=== PATIENT | female | born 1940 | race Caucasian/White ===

== ENCOUNTER 2020-05-22 13:14 | Outpatient (CLI) | payer MEDICARE, SELFPAY ==
--- NOTE | ~2020-05-22 | US_ITS ---
EXAMINATION: US carotid duplex BI DATE: 05/22/2020 14:04 INDICATION: Bilateral carotid stenosis. TECHNIQUE: Grayscale, color Doppler, and pulsed Doppler images of the cervical carotid arteries were obtained. The degree of vessel stenosis is placed in one of the following categories: normal, <50%, 5 0-69%, >=70% but less than near-occlusion, near-occlusion, or total occlusion. Note that percent sten osis relative to normal distal artery lumen diameter is indirectly measured from velocity measurement s as described by Sang, et al. Radiology 2003; 229:340-346. COMPARISON: Ultrasound 05/08/2019 FINDINGS: RIGHT: The right common carotid artery (CCA) peak systolic velocity (PSV) is 66 cm/s. The right internal car otid artery (ICA) PSV is 114 cm/s. The right ICA end-diastolic velocity (EDV) is 24 cm/s. The right I CA/CCA PSV ratio is 0.6. The ICA lumen is obscured by shadowing plaque. There is antegrade flow in th e right vertebral artery. LEFT: The left CCA PSV is 119 cm/s. The left ICA PSV is 123 cm/s. The left ICA EDV is 27 cm/s. The left ICA /CCA PSV ratio is 1.0. The ICA lumen is obscured by shadowing plaque. There is antegrade flow in the left vertebral artery. IMPRESSION: 1. <50% stenosis in the right internal carotid artery. 2. <50% stenosis in the left internal carotid artery. Reviewed, dictated and finalized at location A.
== END 2020-05-22 13:15 | disposition home or self-care (01) ==
DX: I65.23 Occlusion and stenosis of bilateral carotid arteries (principal)
CPT/HCPCS: 93880

== ENCOUNTER → 2020-06-10 12:21 | Outpatient (CLI) | payer MEDICARE, SELFPAY ==
--- NOTE | ~2020-06-10 | DEXA_ITS ---
Bone Density Report Name: Lori Burns Age: 79 Sex: Female Ethnicity: White Date of : 1940 Indication: postmenopausal; screening for osteoporosis; height loss; Referring Provider: PHYSICIAN NOT ON STAFF Study: Bone densitometry was performed. Exam Date: June 10, 2020 Accession number: [id number] Bone Density: Region BMD T-score Z-score Classification AP Spine (L1, L2) 1.426 4.1 6.5 Normal Femoral Neck (Left) 0.902 0.5 2.7 Normal Total Hip (Left) 1.137 1.6 3.6 Normal Femoral Neck (Right) 0.991 1.3 3.5 Normal Total Hip (Right) 1.210 2.2 4.2 Normal Total Hip Mean 1.174 1.9 3.9 Normal World Health Organization criteria for BMD impression classify patients as: Normal (T-score at or above -1.0), Osteopenia (T-score between -1.0 and -2.5), or Osteoporosis (T-score at or below -2.5). 10-year Fracture Risk: FRAX not reported because: All T-scores for Spine Total, Hip Total, Femoral Neck at or above -1.0 Previous Exams: Region Exam Age BMD T-score BMD Change BMD Change Date g/cm2 vs Baseline vs Previous AP Spine(L1, L2) 06/10/2020 79 1.426 4.1 0.001 0.001 07/26/2016 75 1.426 4.1 Total Hip(Left) 06/10/2020 79 1.137 1.6 -0.016 -0.016 07/26/2016 75 1.153 1.7 Total Hip(Right) 06/10/2020 79 1.210 2.2 0.035* 0.035* 07/26/2016 75 1.176 1.9 *Denotes significance at 95% confidence level, LSC for AP Spine = 0.022 g/cm2, LSC for Total Hip = 0.027 g/cm2 Clinical Information Provided by Patient: Has used the following medications: Vitamin D, Calcium Patient maximum height was 63 Menopause Age: 46 Drinks caffeinated beverages Onset of menses at age 17 Number of children 2 Impression: The patient has normal bone mass. No significant bone loss was observed. Discussion: LOW RISK OF FRACTURE; BONE DENSITY IS WELL ABOVE THE MINIMUM DESIRABLE LEVEL AND ABOVE AVERAGE FOR AGE AND SEX AT ALL SKELETAL SITES TESTED. This person's bone density is above expected limits for age and sex. This is rarely clinically significant, but should be pursued if there are significant musculoskeletal complaints. The patient should follow a healthful lifestyle (good nutrition with adequate calcium and vitamin D, and appropriate weight-bearing exercise). Follow-Up: Consider repeating this study in 5 years or sooner if there is some new clinical indication. Reported by: LUIGI on
== END ==
DX: Z78.0 Asymptomatic menopausal state (principal)
CPT/HCPCS: 77080

== ENCOUNTER 2020-07-02 15:06 | Outpatient (CLI) | payer MEDICARE, SELFPAY ==
--- NOTE | ~2020-07-02 | MM_ITS ---
EXAMINATION: MM screening [facility] BI w nicole HISTORY: Screening mammogram TECHNIQUE: Craniocaudal and mediolateral oblique 3-D tomosynthesis images were obtained and synthetic 2-D images were generated. CAD analysis was submitted and interpreted. COMPARISON: 06/20/2019, 06/02/2018, 05/24/2017, 05/03/2017 BREAST PARENCHYMAL COMPOSITION: There are scattered areas of fibroglandular density. FINDINGS: Scattered benign-appearing calcifications are present. There is no evidence of suspicious m ass, calcification, or architectural distortion to suggest malignancy in either breast. There has bee n no suspicious interval change. IMPRESSION: 1. No mammographic evidence of malignancy. 2. Recommend routine screening mammography in one year. BI-RADS Category 2: Benign finding(s). Reviewed, dictated and finalized at location A.
== END 2020-07-02 15:07 | disposition home or self-care (01) ==
DX: Z12.31 Encounter for screening mammogram for malignant neoplasm of breast (principal)
CPT/HCPCS: 77063; 77067

== ENCOUNTER 2021-07-15 15:47 | Outpatient (CLI) | payer MEDICARE, SELFPAY ==
--- NOTE | ~2021-07-15 | MM_ITS ---
EXAMINATION: MM screening [facility] BI w nicole HISTORY: Screening TECHNIQUE: Craniocaudal and mediolateral oblique 3-D tomosynthesis images were obtained and synthetic 2-D images were generated. CAD analysis was submitted and interpreted. COMPARISON: Comparison to multiple prior studies sequentially, with oldest reviewed study dated 10/2016. BREAST PARENCHYMAL COMPOSITION: There are scattered areas of fibroglandular density. FINDINGS: There is no evidence of suspicious mass, calcification, or architectural distortion to sugg est malignancy in either breast. There has been no suspicious interval change. IMPRESSION: 1. No mammographic evidence of malignancy. 2. Recommend routine screening mammography in one year. BI-RADS Category 1: Negative Reviewed, dictated and finalized at location A.
== END 2021-07-15 15:48 | disposition home or self-care (01) ==
LOC: ANHIMG 15:49
PROVIDERS: PCP Internal Medicine; Visit Provider Internal Medicine
DX: Z12.31 Encounter for screening mammogram for malignant neoplasm of breast (principal)
CPT/HCPCS: 77063; 77067

== ENCOUNTER 2022-07-05 13:30 | Outpatient (CLI) | payer MEDICARE, SELFPAY ==
--- NOTE | ~2022-07-05 | US_ITS ---
EXAMINATION: US carotid duplex BI DATE: 07/05/2022 14:25 INDICATION: Bilateral carotid stenosis TECHNIQUE: Grayscale, color Doppler, and pulsed Doppler images of the cervical carotid arteries were obtained. The degree of vessel stenosis is placed in one of the following categories: normal, <50%, 5 0-69%, >=70% but less than near-occlusion, near-occlusion, or total occlusion. Note that percent sten osis relative to normal distal artery lumen diameter is indirectly measured from velocity measurement s as described by Sang, et al. Radiology 2003; 229:340-346. COMPARISON: 05/22/2020 FINDINGS: RIGHT: The right common carotid artery (CCA) peak systolic velocity (PSV) is 129 cm/s. The right internal ca rotid artery (ICA) PSV is 145 cm/s. The right ICA end-diastolic velocity (EDV) is 36 cm/s. The right ICA/CCA PSV ratio is 1.1. Grayscale and color Doppler images yield an estimate of 50-69% diameter red uction from plaque in the ICA. The external carotid artery (ECA) PSV is 236 cm/s. There is antegrade flow in the right vertebral artery. LEFT: The left CCA PSV is 172 cm/s. The left ICA PSV is 196 cm/s. The left ICA EDV is 45 cm/s. The left ICA /CCA PSV ratio is 1.1. Grayscale and color Doppler images yield an estimate of 50-69% diameter reduct ion from plaque in the ICA. The ECA PSV is 322 cm/s. There is antegrade flow in the left vertebral ar marleny. IMPRESSION: 1. 50-69% stenosis in the right internal carotid artery. 2. 50-69% stenosis in the left internal carotid artery. Reviewed, dictated and finalized at location A.
== END 2022-07-05 13:31 | disposition home or self-care (01) ==
PROVIDERS: PCP Internal Medicine; Visit Provider Internal Medicine
DX: I65.23 Occlusion and stenosis of bilateral carotid arteries (principal)
CPT/HCPCS: 93880

== ENCOUNTER 2022-09-01 10:05 | Outpatient (CLI) | payer MEDICARE, SELFPAY ==
--- NOTE | ~2022-09-01 | MM_ITS ---
EXAMINATION: MM screening [facility] BI w nicole HISTORY: Screening mammogram TECHNIQUE: Craniocaudal and mediolateral oblique 3-D tomosynthesis images were obtained and synthetic 2-D images were generated. CAD analysis was submitted and interpreted. COMPARISON: No prior mammogram is available for comparison at this institution. BREAST PARENCHYMAL COMPOSITION: There are scattered areas of fibroglandular density. FINDINGS: Numerous bilateral benign calcifications. There is no evidence of suspicious mass, calcific ation, or architectural distortion to suggest malignancy in either breast. There has been no suspicio us interval change. IMPRESSION: 1. No mammographic evidence of malignancy. 2. Recommend routine screening mammography in one year. BI-RADS Category 2: Benign finding(s). Reviewed, dictated and finalized at location A. PENDENT FREIGHT AGENT
== END 2022-09-01 10:06 | disposition home or self-care (01) ==
PROVIDERS: PCP Internal Medicine; Visit Provider Internal Medicine
DX: Z12.31 Encounter for screening mammogram for malignant neoplasm of breast (principal)
CPT/HCPCS: 77063; 77067

== ENCOUNTER 2023-07-20 12:25 | Outpatient (CLI) | payer MEDICARE, SELFPAY ==
--- NOTE | ~2023-07-20 | US_ITS ---
EXAMINATION: US carotid duplex BI DATE: 07/20/2023 13:36 INDICATION: Carotid atherosclerosis and stenosis TECHNIQUE: Grayscale, color Doppler, and pulsed Doppler images of the cervical carotid arteries were obtained. The degree of vessel stenosis is placed in one of the following categories: normal, <50%, 5 0-69%, >=70% but less than near-occlusion, near-occlusion, or total occlusion. Note that percent sten osis relative to normal distal artery lumen diameter is indirectly measured from velocity measurement s as described by Sang, et al. Radiology 2003; 229:340-346. COMPARISON: 07/05/2022 FINDINGS: RIGHT: The right common carotid artery (CCA) peak systolic velocity (PSV) is 84 cm/s. The right internal car otid artery (ICA) PSV is 115 cm/s. The right ICA end-diastolic velocity (EDV) is 20 cm/s. The right I CA/CCA PSV ratio is 1.4. Grayscale and color Doppler images yield an estimate of <50% diameter reduct ion from plaque in the ICA. The external carotid artery (ECA) PSV is 222 cm/s. There is antegrade zulay w in the right vertebral artery. LEFT: The left CCA PSV is 126 cm/s. The left ICA PSV is 186 cm/s. The left ICA EDV is 30 cm/s. The left ICA /CCA PSV ratio is 1.5. Grayscale and color Doppler images yield an estimate of 50-69% diameter reduct ion from plaque in the ICA. The ECA PSV is 324 cm/s. There is antegrade flow in the left vertebral ar marleny. IMPRESSION: 1. <50% stenosis in the right internal carotid artery. 2. 50-69% stenosis in the left internal carotid artery. Reviewed, dictated and finalized at location A.
== END 2023-07-20 12:26 | disposition home or self-care (01) ==
PROVIDERS: PCP Internal Medicine; Visit Provider Internal Medicine
DX: I65.23 Occlusion and stenosis of bilateral carotid arteries (principal)
CPT/HCPCS: 93880

== ENCOUNTER 2023-09-29 15:59 | Outpatient (CLI) | payer MEDICARE, SELFPAY ==
--- NOTE | ~2023-09-29 | MM_ITS ---
EXAMINATION: MM screening [facility] BI w nicole HISTORY: Screening mammogram TECHNIQUE: Craniocaudal and mediolateral oblique 3-D tomosynthesis images were obtained and synthetic 2-D images were generated. CAD analysis was submitted and interpreted. COMPARISON: 09/01/2022, 07/15/2021, 07/02/2020 bilateral screening mammogram examinations BREAST PARENCHYMAL COMPOSITION: The breasts are heterogeneously dense, which may obscure small masses . FINDINGS: Numerous scattered bilateral benign calcifications are again noted. There is no evidence of suspicious mass, calcification, or architectural distortion to suggest malignancy in either breast. There has been no suspicious interval change. IMPRESSION: 1. No mammographic evidence of malignancy. 2. Recommend routine screening mammography in one year. BI-RADS Category 2: Benign finding(s). Reviewed, dictated and finalized at location A. E MAKER
== END 2023-09-29 16:00 | disposition home or self-care (01) ==
LOC: ANHIMG 16:01
PROVIDERS: PCP Internal Medicine; Visit Provider Internal Medicine
DX: Z12.31 Encounter for screening mammogram for malignant neoplasm of breast (principal)
CPT/HCPCS: 77063; 77067

== ENCOUNTER 2024-11-22 23:17 | Emergency (ER) | payer MEDICARE, SELFPAY ==
--- NOTE | ~2024-11-22 | CT_ITS ---
CT of the Abdomen and Pelvis: Indication: Abdominal pain Technique: 2.5 mm axial scans were obtained through the abdomen and pelvis following intravenous adm inistration of 100 cc of Omnipaque 350. Dose reduction technique was used on this scan by utilizing a utomated exposure control and iterative reconstruction technique. The dose-length product (DLP) was 2 36.83 mGy-cm. Findings: Scans through the lung bases are unremarkable. The liver, spleen, pancreas, gallbladder, adrenals and kidneys are within normal limits. There are ex tensive atherosclerotic calcifications of the aorta and iliac vessels. No lymphadenopathy. Probable wall thickening of the gastric antrum and duodenum. Questionable additional mild wall thicke bushra of large and small bowel loops. No bowel obstruction. No abscess or free air. Images through the pelvis are degraded by streak artifact from right hip arthroplasty. Urinary bladde r unremarkable. No pelvic mass evident. No ascites evident. Impression: Findings suggestive of nonspecific infectious/inflammatory enterocolitis. Wall thickening of the gastric antrum and duodenum could reflect additional inflammatory process or p ossibly peptic ulcer disease. Correlate clinically. No abscess, free air, or bowel obstruction. Reviewed, dictated and finalized at location . 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 Wall thickening of the gastric antrum and duodenum could reflect additional inf lammatory process or possibly peptic ulcer disease. Correlate clinically. No abscess, free air, or bowel obstruction.
[2024-11-22 23:27] VITALS: BP 146/38; PULSE 57; RESP 14; TEMP 36.4; O2SAT 98
[2024-11-23 00:18] LABS: Basophils Absolute Auto 0.1 K/mm3 (0.0-0.1); Basophils Percent Auto 0.4 % (0.2-1.2); Eosinophils Absolute Auto 0.2 K/mm3 (0-0.3); Eosinophils Percent Auto 1.7 % (0-4.4); Hematocrit 31.5 % (37.0-47.0); Hemoglobin 10.8 g/dL (12.0-15.0); Immature Granulocyte Absolute 0.09 K/mm3 (0.00-0.031); Immature Granulocyte Percent A 0.6 % (0-0.5); Lymphocytes Absolute Auto 2.11 K/mm3 (0.9-3.2); Lymphocytes Percent Auto 15.1 % (18.3-44.2); Mean Corpuscular HGB Conc 34.3 g/dl (32-36); Mean Corpuscular Hemoglobin 33.5 pg (26-34); Mean Corpuscular Volume 97.8 fl (80-100); Mean Platelet Volume 10.9 fl (7.4-10.4); Monocytes Absolute Auto 0.8 K/mm3 (0.1-0.6); Monocytes Percent Auto 5.5 % (2.6-8.5); Neutrophils Absolute Auto 10.7 K/mm3 (1.3-6.7); Neutrophils Percent Auto 76.7 % (45.5-73.1); Platelet Count Result 243 k/mm3 (150-375); Red Blood Count 3.22 M/mm3 (4.2-5.4); Red Cell Distribution Width 13.2 % (11.5-14.5); White Blood Count 13.9 K/mm3 (4.5-10.0)
[2024-11-23 00:22] LABS: Alanine Aminotransferase 33 U/L (6-35); Albumin Level 3.9 g/dL (3.5-5.1); Alkaline Phosphatase 49 U/L (38-126); Anion Gap 16 mmol/L (4-12); Aspartate Amino Transferase 49 U/L (14-36); Bilirubin,Total 0.7 mg/dL (0.2-1.3); Blood Urea Nitrogen 32 mg/dL (7-17); Carbon Dioxide 17 mmol/L (22-30); Chloride 103 mmol/L (98-107); Estimated CRCL calculation 20 ml/min; Estimated Glomerular Filt Rate 32; Glucose 208 mg/dL (65-110); Potassium 3.8 mmol/L (3.4-5.0); Sodium 136 mmol/L (137-145)
[2024-11-23 00:28] LABS: Prothrombin Time 13.3 Seconds (11.1-14.7)
--- OUTSIDE RECORDS SUMMARY | 2024-11-23 00:40 | XMS_ITS | Continuity of Care Document ---
Author Organization [facility] Address [address] [place] [address] Phone Care Team Providers Care Felt Cementer Name Role Phone Lucero Lopez Unavailable Unavailable Procedures Procedure Date Office/outpatient Visit, Est Post-op Follow-up Visit Post-op Follow-up Visit Post-op Follow-up Visit Remove Cataract, Insert Lens Office/outpatient Visit, Est [facility] Ex[facility], New Patient Advance Directives Directive Yes / No Effective Date File Name No Information Encounters Encounter Description Practice Location Reason(s) For Visit Diagnoses Date Provider Providers Copied on Encounter Office/outpat ient Visit, Est [facility], [address] [place] [address] [address], [place], [place], [id number], tel:[phone] [facility] No Information 201 0 Jessica Trivedi [address] , [address], [place], [place], [facility], [place]. tel:[phone] [facility], [id number] [place] [address] [address], [place], [place], [id number], [place] tel:[phone] [facility] No Information 4-200 9 Jessica Trivedi [address] , [address], [place], [address], [place]. tel:[phone] [facility], [address], [place], [place], [id number], [place] tel:[phone] [facility] No Information Joshua-2 3-200 9 Jessica Barker. [address] , [address], [place], [place], [facility], [place]. tel:[phone] [facility], [address], [place], [place], [id number], tel:[phone] [facility] No Information Joshua-1 1-200 9 Doichris Edronnie. [address], [place], [place], [facility], [place]. tel:[phone] [facility], [address] [place] [address] [address], [place], [place], [id number], tel:[phone] [facility] No Information Joshua-1 0-200 9 Jessica Barker. [address], [place], [place], [facility], [place]. tel:[phone] [place]pat ient [place] [facility] [address], [place], [place], [id number], [place] tel:[phone] [facility] No Information Joshua-0 2-200 9 Jessica Bullardn. [address], [place], [place], [facility], [place]. tel:[phone] Referring Provider: Eriberto Ferguson OD Christian, [address], [place], [place], [facility]. tel:[phone] [facility], [address], [place], [place], [id number], [place] tel:[phone] [facility] No Information Apr-1 7-200 8 Ferguson OD Eriberto. [facility] [address], [place], [place], [facility], [place]. tel:[phone] Family History Family Member Type Diagnosis Age At Onset No Information Payers Payer name Insurance type Covered republican ID Authoriza tion(s) No Information Social History Type Description Quantity Date Captured Comments Sex Female Smoking Status No Information Chief Complaint And Reason For Visit No Information Reason For Referral Reason For Referral No Information History Of Present Illness Encounter Date Complaint History Of Prese nt Illness No Information Functional Status Date Functional Assessmen t No Information Instructions Date Instruction Additional Infor mation No Information Assessments Type Assessment Date No Information Patient Care Teams Name Effective Dates (start - stop) Status Members No Information
--- OUTSIDE RECORDS SUMMARY | 2024-11-23 00:40 | XMS_ITS | Encounter Summary ---
Author Organization [facility] Address [address] [place] [address] Care Team Providers Care Furnace Setter Name Role Phone Kevyn Cortés MD Primary Care Provider Luis E Ko MD Unavailable [phone] Reason for Visit * Reason Onset Date Comments Symptom Based Call 11/19/2024 Encounter Details Date Type Department Care Team (Late st Contact Info) Description 11/19/2024 Telephone [facility] Primary Care at [facility] [address] [place] [address] Kevyn Cortés MD [address] [place] [address] Symptom Based Call Social History Tobacco Use Types Packs/Day Years Used Date Smoking Tobacco: Never Smokeless Tobacco: Never Alcohol Use Standard Drinks/Week Comments Yes 0 (1 standard drink = 0.6 oz pur e alcohol) AUDIT-C Answer Date Recorded Q1: How often do you have a drink containing alc ohol? 2-3 times a week 11/20/2024 Q2: How many drinks containi ng alcohol do you have on a typical day when you are drinking? 1 or 2 11/20/2024 Q3: How often do you have si x or more drinks on one occasion? Never 11/20/2024 PHQ-2 Answer Date Recorded PHQ-2 Total Score (If total score is 3 or more points, staff should administer the PHQ-9) 0 06/20/2024 Personal Safety Answer Date Recorded Have you ever been in or are you currently in a harmful physical or emotional relationship or is someone making you feel afraid or unsafe? Denies 11/20/2024 Comments No Sex and Gender Information Value Date Recorded Sex Assigned at Not on file Legal Sex Female 5:02 PM TIRE LAYER Gender Identity Female 11/24/2020 9:38 AM TIRE LAYER Sexual Orientation Not on file documented as of this encounter Functional Status * Audit-C Score Answer Date of Assessment Author 3 11/20/2024 10:57 AM Waleska Davis RN * Question Answer Date of Assessment Author Q1: How often do you have a drink containing alcohol? 2-3 times a week 11/20/2024 10:57 AM Waleska Davis RN Q2: How many drinks containing alcohol do you have on a typical day when you are drinking? 1 or 2 11/20/2024 10:57 AM Waleska Davis RN Q3: How often do you have six or more drinks on one occasion? Never 11/20/2024 10:57 AM Waleska Davis RN documented as of this encounter Miscellaneous Notes * Telephone Encounter - Tiera Stoner MA - 11/19/2024 11:12 AM TIRE LAYER LMOM for Josefina to schedule an appt for pt today or this week LAYER * Telephone Encounter - Narciso Kumar - 11/19/2024 9:38 AM CST Symptom Based Call Chief Complaint(s): dizziness and a fall Duration: last night What type of symptom(s) is the patient experiencing? Non-Emergent. Is this a new or reoccurring symptom(s)? new What have you tried to help your symptom(s)? Nothing Why was appointment not scheduled? Patient seeking care without an appointment; appointment was offered by AC. Additional Comments: stated patient had paramedics come out for extreme dizziness and vitals were checked and their fine and ruled out a stroke. Stated fine when sitting and aware. Stated they can doeverything but when they get up they get dizzy when they walk around. looking for reccomendations and what would cause it. stated paramedics were there an hour ago. tested for covid-19 and waiting for results but not seeing a line getting off of prednisone, stated they checked the test for covid-19and neg Does message need to be routed? Yes-Action Needed LAYER documented in this encounter Plan of Treatment Not on file documented as of this encounter Visit Diagnoses Not on filedocumented in this encounter Care Teams Furnace Setter Relationship Specialty Start Date End Date Kevyn Cortés MD PCP - General 12/31/16 Luis E Ko MD Surgeon Orthopedic Surgery 02/04/22 documented as of this encounter
--- OUTSIDE RECORDS SUMMARY | 2024-11-23 00:41 | XMS_ITS | Clinical Summary ---
Author Organization [facility] Healthcare Address [address] [place] [address] Care Team Providers Care Clinical Medical Assistant Name Role Phone Kevyn Cortés MD Primary Care Provider Luis E Ko MD Unavailable [phone] Allergies No known active allergies Medications fexofenadine (TOM) 180 mg tablet take 1 tablet (180MG) by oral route every day 0 1 Active cholecalciferol (VITAMIN D3) 2,000 unit capsule take 1 by Oral route every day 0 0 6 Active ascorbic acid (VITAMIN C) 500 mg tablet,chewable Indications:Vit rosales deficiency prevention Take 1 tablet/chew tab (500 mg total) by mouth daily 30 tablet/chew tab 2 Active aspirin 81 mg enteric coated tablet Take 1 tablet (81 mg total) by mouth daily Active PARoxetine (PAXIL) 10 mg tabletIndicatio ns:Depression, unspecified depression type TAKE 1 TABLET(10 MG) BY MOUTH DAILY 90 tablet 3 4 Active amLODIPine (NORVASC) 10 mg tablet TAKE 1 TABLET(10 MG) BY MOUTH DAILY 90 tablet 3 4 Active ezetimibe (ZETIA) 10 mg tablet TAKE 1 TABLET(10 MG) BY MOUTH DAILY 90 tablet 2 4 Active lisinopriL (PRINIVIL,ZESTR IL) 40 mg tablet TAKE 1 TABLET(40 MG) BY MOUTH DAILY 90 tablet 1 12/16/202 4 Active chlorthalidone (HYGROTON) 25 mg tablet TAKE 1 TABLET BY MOUTH EVERY DAY 90 tablet [address] (PROTONIX) 40 mg EC tabletIndicatio ns:GI Bleed Take 1 tablet (40 mg total) by mouth 2 (two) times a day for 90 days, THEN 1 tablet (40 mg total) daily. 540 tablet 5 02/21/20 26 Active amoxicillin (AMOXIL) 500 mg tablet/capsule Take 4 tabs by mouth 1 hour before procedure 4 tablet/capsu le 2 4 11/22/19 25 Discontinu ed(Stop Taking at Discharge) triamcinolone (KENALOG) 0.1 % ointment Apply topically 2 (two) times a day for 10 days Avoid face and genital area 30 g 5 11/15/19 25 Discontinu ed(Reorder ) predniSONE (DELTASONE) 10 mg tablet Take 3 tabs days 1 & 2, 2 tabs days 3 & 4, 1 tab days 5-7. 13 tablet 5 11/20/19 25 Discontinu ed(Therapy completed) triamcinolone (KENALOG) 0.1 % ointment Apply topically 2 (two) times a day for 10 days Avoid face and genital area 80 g 1 5 11/20/19 25 Discontinu ed(Therapy completed) rosuvastatin (CRESTOR) 5 mg tablet Take 1 tablet (5 mg total) by mouth daily 11/20/19 25 Discontinu ed(Alterna te therapy) TiZANidine (ZANAFLEX) 2 mg capsule Take 1 capsule (2 mg total) by mouth 3 (three) times a day 11/20/19 25 Discontinu ed(Therapy completed) Active Problems Problem Noted Date Diagnosed Date Acute upper GI bleed 11/20/2024 Acute blood loss anemia 11/20/2024 Advance care planning 06/21/2024 Overview (06/21/2024): 9-24 HCPOA: Daughter: Josefina Murphy. Limited Code. Assessment & Plan (06/21/2024 11:45 AM CDT): Advance Care Planning Advance Care Planning Conversation Pertinent diagnoses: age, HTN The patient and/or family consented to a voluntary Advance Care Planning conversation. Individuals present for the conversation: patient Summary of the conversation: Limited Code Outcome of the conversation and documents completed (select all that apply): CHANGE code status to DNR/DNI I spent 16 minutes providing separately identifiable ACP services with the patient and/or surrogate decision maker in a voluntary, in-person conversation discussing the patient's wishes and goals as detailed in the above note. Kevyn Cortés MD Stage 3a chronic kidney disease 06/21/2024 Overview (06/21/2024): 9 GFR 48 Assessment & Plan (06/21/2024 11:46 AM CDT): She knows to avoid anti-inflammatory medications. Will continue to follow closely. Primary osteoarthritis of right hip 11/17/2021 Arthritis of right hip 01/19/2021 Overview (01/19/2022): 4-21 XR: severe DJD 01/22: Upcoming surgery - needs clearance Assessment & Plan (01/20/2022 11:27 AM CDT): Right hip replacement upcoming - needs clearance. Statin myopathy 11/26/2019 Assessment & Plan (06/21/2024 11:21 AM CDT): Unable to take statin medications. Assessment & Plan (06/17/2023 11:15 AM CDT): Intolerant of atorvastatin, rosuvastatin, simvastatin, pitavistatin due to muscle inflammation. Assessment & Plan (06/16/2022 11:28 AM CDT): Continue zetia. Assessment & Plan (05/29/2020 10:35 AM CDT): Continue zetia Assessment & Plan (11/26/2019 11:13 AM CORPORATE COORDINATOR): Continue with zetia. Medicare annual wellness visit, subsequent 05/09 Assessment & Plan (06/21/2024 11:19 AM CDT): Please see below for a list of your medical conditions and recommendations. Assessment & Plan (06/17/2023 11:13 AM CDT): Please see below for a list of your medical conditions and recommendations. Assessment & Plan (06/16/2022 11:26 AM CDT): Please see below for a list of your medical conditions and recommendations. Assessment & Plan (06/04/2021 11:24 AM CDT): Please see below for a list of your medical conditions and recommendations. Assessment & Plan (05/29/2020 10:34 AM CDT): Please see below for a list of your medical conditions and recommendations. Assessment & Plan (05/21/2019 9:57 AM CDT): Please see below for a list of your medical conditions and recommendations. Assessment & Plan (05/09/2018 11:05 AM CDT): Please see below for a list of your medical conditions and recommendations. Carotid stenosis, bilateral 04/20/2017 Overview (07/25/2023): 8-20 carotid doppler: <50% bilaterally 10-22 carotid doppler: bilaterall 50-70% stenosis - carotid doppler: <50 right, 50-70% on left Assessment & Plan (06/21/2024 11:22 AM CDT): Repeat carotid dopplers Assessment & Plan (12/19/2023 11:16 AM CDT): Continue asa, zetia Assessment & Plan (06/17/2023 11:15 AM CDT): Repeat US Assessment & Plan (06/04/2021 11:25 AM CDT): Ok to wait another year. Intolerant of statin. Continue aspirin. Assessment & Plan (05/29/2020 10:36 AM CDT): No clinically significant disease. Assessment & Plan (05/21/2019 9:59 AM CDT): US is stable. 50-70% stensoses bilaterally. Repeat one year. Assessment & Plan (05/09/2018 11:16 AM CDT): Repeat carotid doppler. Assessment & Plan (04/20/2017 12:11 PM CDT): Having an u/s for follow up today. Vitamin D deficiency 12/07/2013 Overview (01/05/2017): VITAMIN D DEFICIENCY NOS Assessment & Plan (06/21/2024 11:20 AM CDT): The vitamin D level will be checked today. To try to receive 10 minutes of sun exposure, 3-4 days a week. Continue to take the supplement as prescribed. Assessment & Plan (06/17/2023 11:15 AM CDT): The vitamin D level will be checked today. To try to receive 10 minutes of sun exposure, 3-4 days a week. Continue to take the supplement as prescribed. Assessment & Plan (06/16/2022 11:27 AM CDT): The vitamin D level will be checked today. To try to receive 10 minutes of sun exposure, 3-4 days a week. Continue to take the supplement as prescribed. Assessment & Plan (06/04/2021 11:26 AM CDT): The vitamin D level is normal. No changes are needed to your current level of supplementation. Assessment & Plan (05/29/2020 10:42 AM CDT): Lab was normal. Assessment & Plan (05/21/2019 10:00 AM CDT): The vitamin D level will be checked today. To try to receive 10 minutes of sun exposure, 3-4 days a week. Continue to take the supplement as prescribed. Assessment & Plan (05/09/2018 11:17 AM CDT): The vitamin D level will be checked today. To try to receive 10 minutes of sun exposure, 3-4 days a week. Continue to take the supplement as prescribed. Assessment & Plan (04/20/2017 11:59 AM CDT): Level was normal. Continue current level of supplementation. Impaired fasting blood sugar 09/27/2006 Overview (10/26/2017): Diet is good. Regular exercises. 09/18: eye exam: no retinopathy No longer on meds. Assessment & Plan (06/21/2024 11:20 AM CDT): The hemoglobin A1C level will be checked today. Discussed the importance of continuing to exercise regularly (at least four days a week) and to watch the intake of simple sugars and carbs. Alcohol should be limited to no more than 4-6 servings a week. Assessment & Plan (12/19/2023 11:24 AM CDT): No need to check today. Has been steady. Assessment & Plan (06/17/2023 11:14 AM CDT): The hemoglobin A1C level will be checked today. Discussed the importance of continuing to exercise regularly (at least four days a week) and to watch the intake of simple sugars and carbs. Alcohol should be limited to no more than 4-6 servings a week. Assessment & Plan (06/16/2022 11:26 AM CDT): The hemoglobin A1C level will be checked today. Discussed the importance of continuing to exercise regularly (at least four days a week) and to watch the intake of simple sugars and carbs. Alcohol should be limited to no more than 4-6 servings a week. Assessment & Plan (06/04/2021 11:26 AM CDT): The hemoglobin A1C level will be checked today. Discussed the importance of continuing to exercise regularly (at least four days a week) and to watch the intake of simple sugars and carbs. Alcohol should be limited to no more than 4-6 servings a week. Assessment & Plan (12/01/2020 1:27 PM CORPORATE COORDINATOR): The pre-diabetes is acceptably controlled. The hemoglobin A1C today is 5.5%. Discussed the importance of continuing to exercise regularly (at least four days a week) and to watch the intake of simple sugars and carbs. Assessment & Plan (05/29/2020 10:35 AM CDT): Hgb A1C Date Value Ref Range Status 05/20/2020 5.6 <5.7 % of total Hgb Final Comment: For the purpose of screening for the presence of diabetes: <5.7% Consistent with the absence of diabetes 5.7-6.4% Consistent with increased risk for diabetes (prediabetes) > or =6.5% Consistent with diabetes This assay result is consistent with a decreased risk of diabetes. Currently, no consensus exists regarding use of hemoglobin A1c for diagnosis of diabetes in children. According to [place] Diabetes Association (ADA) guidelines, hemoglobin A1c <7.0% represents optimal control in non- diabetic patients. Different metrics may apply to specific patient populations. Standards of Medical Care in Diabetes(ADA). 05/17/2019 6.0 (H) <5.7 % of total Hgb Final Comment: For someone without known diabetes, a hemoglobin A1c value between 5.7% and 6.4% is consistent with prediabetes and should be confirmed with a follow-up test. For someone with known diabetes, a value <7% indicates that their diabetes is well controlled. A1c targets should be individualized based on duration of diabetes, age, comorbid conditions, and other considerations. This assay result is consistent with an increased risk of diabetes. Currently, no consensus exists regarding use of hemoglobin A1c for diagnosis of diabetes for children. Hemoglobin A1C, POC Date Value Ref Range Status 11/26/2019 5.3 Final The sugar continues to be borderline but not yet diabetic. Diabetic complications arise at values above 7.0%. I want you to continue to try to limit your intake of simple carbohydrates, sweets, and alcohol. Regular exercise at least four days a week is essential to keeping this from getting worse. Assessment & Plan (11/26/2019 11:38 AM CORPORATE COORDINATOR): The pre-diabetes is now normal. The hemoglobin A1C today is 5.3%. Discussed the importance of continuing to exercise regularly (at least four days a week) and to watch the intake of simple sugars and carbs. Assessment & Plan (05/21/2019 9:58 AM CDT): Hgb A1C Date Value Ref Range Status 05/17/2019 6.0 (H) <5.7 % of total Hgb Final Comment: For someone without known diabetes, a hemoglobin A1c value between 5.7% and 6.4% is consistent with prediabetes and should be confirmed with a follow-up test. For someone with known diabetes, a value <7% indicates that their diabetes is well controlled. A1c targets should be individualized based on duration of diabetes, age, comorbid conditions, and other considerations. This assay result is consistent with an increased risk of diabetes. Currently, no consensus exists regarding use of hemoglobin A1c for diagnosis of diabetes for children. 05/09/2018 5.6 4.0 - 5.6 % Final 10/26/2017 6.0 4.0 - 6.0 % Final 04/14/2017 5.8 (H) <5.7 % of total Hgb Final Comment: For someone without known diabetes, a hemoglobin A1c value between 5.7% and 6.4% is consistent with prediabetes and should be confirmed with a follow-up test. For someone with known diabetes, a value <7% indicates that their diabetes is well controlled. A1c targets should be individualized based on duration of diabetes, age, comorbid conditions, and other considerations. This assay result is consistent with an increased risk of diabetes. Currently, no consensus exists regarding use of hemoglobin A1c for diagnosis of diabetes for children. Hemoglobin A1C, POC Date Value Ref Range Status 11/13/2018 5.4 Final The sugar remains borderline. Diabetic complications arise at values above 7.0%. I want you to continue to try to limit your intake of simple carbohydrates, sweets, and alcohol. Regular exercise at least four days a week is essential to keeping this from getting worse. Assessment & Plan (11/13/2018 11:06 AM CORPORATE COORDINATOR): The pre-diabetes is doing great. The hemoglobin A1C today is 5.4%. Discussed the importance of continuing to exercise regularly (at least four days a week) and to watch the intake of simple sugars and carbs. Assessment & Plan (05/09/2018 11:15 AM CDT): The hemoglobin A1C level will be checked today. Discussed the importance of continuing to exercise regularly (at least four days a week) and to watch the intake of simple sugars and carbs. Alcohol should be limited to no more than 4-6 servings a week. Assessment & Plan (10/26/2017 11:55 AM CORPORATE COORDINATOR): The diabetes seems to be under good control. The hemoglobin A1C level will be checked today. Discussed the importance of continuing to exercise regularly (at least four days a week) and to watch the intake of simple sugars and carbs. I have instructed the patient to check the blood sugar at home 1-2 times per day. Assessment & Plan (04/20/2017 11:56 AM CDT): The diabetes seems to be under good control. The hemoglobin A1C level will be checked today. Discussed the importance of continuing to exercise regularly (at least four days a week) and to watch the intake of simple sugars and carbs. I have instructed the patient to check the blood sugar at home 1-2 times per day.To continue efforts at improving the level of exercise and of eating a healthy diet, making sure to get in 4-5 servings of fruits and vegetables a day. Will check baseline labs as listed above. Anxiety state 09/27/2006 Overview (08/09/2018): ANXIETY STATE NOS Dlpyyo-ti-neb had a stroke in July Recently BP has been hard to control and she has been feeling anxious - near panic attack last night Assessment & Plan (06/21/2024 11:21 AM CDT): Continue paroxetine. Assessment & Plan (06/16/2022 11:27 AM CDT): Continue paroxetine. Assessment & Plan (08/09/2018 2:00 PM CORPORATE COORDINATOR): Increase the paxil to a full pill daily Hyperlipidemia 09/27/2006 Overview (11/13/2018): 2-19 trial of pitavistatin Assessment & Plan (06/21/2024 11:20 AM CDT): To continue to efforts at getting 4-5 servings of fruits and/or vegetables a day. A fasting lipid profile will be checked today. Assessment & Plan (06/17/2023 11:14 AM CDT): Continue zetia. Intolerant of multiple statins. Assessment & Plan (12/15/2022 1:28 PM CDT): To continue to efforts at getting 4-5 servings of fruits and/or vegetables a day. Assessment & Plan (06/16/2022 11:27 AM CDT): To continue to efforts at getting 4-5 servings of fruits and/or vegetables a day. A fasting lipid profile will be checked today. Assessment & Plan (2021 11:52 AM CORPORATE COORDINATOR): To continue to efforts at getting 4-5 servings of fruits and/or vegetables a day. Assessment & Plan (06/04/2021 11:25 AM CDT): Continue with ezetimibe Assessment & Plan (05/29/2020 10:36 AM CDT): Lab Results Component Value Date CHOL 255 (H) 05/20/2020 TRIG 222 (H) 05/20/2020 HDL 57 05/20/2020 LDL 160 (H) 05/20/2020 LDLCALC 120.20 05/09/2018 The total cholesterol is comprised of a partial sum of triglycerides (associated with greasy or sugar containing foods), the HDL (good cholesterol) and the LDL (bad, plaque building cholesterol). Your levels remain high. Keep working at maintaining a diet low in saturated fats and high in fruits and vegetables and take the ezetimide. Assessment & Plan (11/26/2019 11:14 AM CORPORATE COORDINATOR): Continue with zetia. Assessment & Plan (05/21/2019 10:00 AM CDT): Intolerant of statins. Continue with zetia. Assessment & Plan (11/13/2018 11:11 AM CORPORATE COORDINATOR): Willing to try pitavistatin. Assessment & Plan (05/09/2018 11:15 AM CDT): To continue to efforts at getting 4-5 servings of fruits and/or vegetables a day. A fasting lipid profile will be checked today. Assessment & Plan (10/26/2017 11:57 AM CORPORATE COORDINATOR): To continue to efforts at getting 4-5 servings of fruits and/or vegetables a day. Assessment & Plan (04/20/2017 11:58 AM CDT): To take the crestor 5 mg every other day Essential hypertension 09/27/2006 Overview (11/13/2018): She is taking his medications regularly. She denies chest pains, palpitations or shortness of breath. Assessment & Plan (06/21/2024 11:20 AM CDT): The blood pressure is adequately controlled. Ideally, I want it below 130/80. Will continue with the same medications as prescribed (chlorthalidone, lisinopril, amlodipine). Salt intake needs to be restricted to keep the sodium level at less than 2000 mg a day. Regular exercise is also important and should be at least four days a week. Assessment & Plan (12/19/2023 11:16 AM CDT): The blood pressure is adequately controlled. Ideally, I want it below 130/80. Will continue with the same medications as prescribed (chlorthalidone, lisinopril, amlodipine). Salt intake needs to be restricted to keep the sodium level at less than 2000 mg a day. Regular exercise is also important and should be at least four days a week. Assessment & Plan (06/17/2023 11:14 AM CDT): The blood pressure is adequately controlled. Ideally, I want it below 130/80. Will continue with the same medications as prescribed (amlodipine, chlorthalidone, lisinopril). Salt intake needs to be restricted to keep the sodium level at less than 2000 mg a day. Regular exercise is also important and should be at least four days a week. Assessment & Plan (12/15/2022 1:27 PM CDT): The blood pressure is adequately controlled. Ideally, I want it below 130/80. Will continue with the same medications as prescribed (lisinopril). Salt intake needs to be restricted to keep the sodium level at less than 2000 mg a day. Regular exercise is also important and should be at least four days a week. Assessment & Plan (06/16/2022 11:27 AM CDT): The blood pressure is adequately controlled. Ideally, I want it below 130/80. Will continue with the same medications as prescribed (lisinopril, chlorthalidone, amlodipine). Salt intake needs to be restricted to keep the sodium level at less than 2000 mg a day. Regular exercise is also important and should be at least four days a week. Assessment & Plan (2021 11:51 AM CORPORATE COORDINATOR): The blood pressure is adequately controlled. Ideally, I want it below 130/80. Will continue with the same medications as prescribed (amlodipine, chlorthalidone, lisinopril, metoprolol). Salt intake needs to be restricted to keep the sodium level at less than 2000 mg a day. Regular exercise is also important and should be at least four days a week. Assessment & Plan (06/04/2021 11:25 AM CDT): The blood pressure is adequately controlled. Ideally, I want it below 130/80. Will continue with the same medications as prescribed (amlodipine, lisinopril, chlorthalidone). Salt intake needs to be restricted to keep the sodium level at less than 2000 mg a day. Regular exercise is also important and should be at least four days a week. Assessment & Plan (05/29/2020 10:36 AM CDT): The blood pressure is adequately controlled. Ideally, I want it below 130/80. Will continue with the same medications as prescribed. Salt intake needs to be restricted to keep the sodium level at less than 2000 mg a day. Regular exercise is also important and should be at least four days a week. Assessment & Plan (11/26/2019 11:13 AM CORPORATE COORDINATOR): The blood pressure is adequately controlled. Ideally, I want it below 130/80. Will continue with the same medications as prescribed. Salt intake needs to be restricted to keep the sodium level at less than 2000 mg a day. Regular exercise is also important and should be at least four days a week. Assessment & Plan (05/21/2019 9:58 AM CDT): The blood pressure is adequately controlled. Ideally, I want it below 130/80. Will continue with the same medications as prescribed. Salt intake needs to be restricted to keep the sodium level at less than 2000 mg a day. Regular exercise is also important and should be at least four days a week. Assessment & Plan (11/13/2018 11:02 AM CORPORATE COORDINATOR): The blood pressure is adequately controlled. Ideally, I want it below 130/80. Will continue with the same medications as prescribed. Salt intake needs to be restricted to keep the sodium level at less than 2000 mg a day. Regular exercise is also important and should be at least four days a week. Assessment & Plan (08/09/2018 2:05 PM CORPORATE COORDINATOR): With standing the BP drops into the normal range. (120/60) For the next week please take BP readings when standing. Increase the paxil to help with anxiety Increase the chlorthalidone to a full pill per day Take the new metoprolol as needed up to 2 times per day for BP above 170/90 Send us email in 1 week Assessment & Plan (10/26/2017 11:55 AM CORPORATE COORDINATOR): The blood pressure is adequately controlled. Ideally, I want it below 130/80. Will continue with the same medications as prescribed. Salt intake needs to be restricted to keep the sodium level at less than 2000 mg a day. Regular exercise is also important and should be at least four days a week. Assessment & Plan (04/20/2017 11:59 AM CDT): The blood pressure is adequately controlled. Ideally, I want it below 130/80. Will continue with the same medications as prescribed. Salt intake needs to be restricted to keep the sodium level at less than 2000 mg a day. Regular exercise is also important and should be at least four days a week. Atopic rhinitis 09/27/2006 Overview (01/07/2017): ALLERGIC RHINITIS NOS Resolved Problems Problem Noted Date Diagnosed Date Resolved Date Elective surgery 01/19/2022 06/16/2022 Overview (01/25/2022): 01/22: Upcoming R hip replacement surgery - needs clearance. Surgeon: Luis E Ko MD. Surgery date: 02/03/22 01/25/22: reviewed her labs, CXR, and EKG. She is at an average risk for her age for this upcoming hip replacement. Assessment & Plan (01/25/2022 10:34 AM CDT): Reviewed labs: Slight anemia and slightly low sodium level - neither of these is off enough to prevent surgery Reviewed CXR: normal Reviewed report from EKG done at [facility] - normal sinus rhythm Based on her visit here last week and the above mentioned test I believe she would be of average risk for her age in terms of her upcoming hip replacement surgery. Will complete and fax the requested form to her surgeon. Claudication 05/21/2019 11/26/2019 Overview (11/26/2019): 8- Send for arterial dopplers. Likely early claudication. 8 LE US: neg for PAD Impaired fasting glucose 04/06/2016 Overview (01/07/2017): IFG Encounters Date Type Department Care Team Description 5 1:58 PM CORPORATE COORDINATOR Anesthesia Event [address] [address] Prateek Blood MD Reynolds, Ethan Emerson, MD 5 1:00 PM CORPORATE COORDINATOR - 5 1:40 PM CORPORATE COORDINATOR Surgery [address] [address] Fco Vivar MD ESOPHAGOGASTRODUODENOSCOPY INJECTION SUBMUCOSAL 5 8:05 PM CORPORATE COORDINATOR - 5 1:57 PM CORPORATE COORDINATOR Hospital Encounter [facility] [address] [place] [id number] Jose Francisco Cochran MD Kim, Eileen H., MD Davis, Lele Sheikh II, MD Acute upper GI bleed (Primary Dx); Weight loss, non-intentional; Acute blood loss anemia Discharge Disposition: Discharge to home or self care 5 4:15 PM CORPORATE COORDINATOR Office Visit [facility] at [address] [phone] Holli Cardenas NP Dizziness (Primary Dx); Hypotension, unspecified hypotension type; Shortness of breath; Accidental fall, initial encounter 5 Telephone [facility] Primary [facility] at [facility] [address] [facility] [place] [address] Kevyn Cortés MD Symptom Based Call 5 Nurse Triage [facility] Primary [facility] at [facility] [address] [place] [address] Kevyn Cortés MD 5 Telephone [facility] Primary Care at [facility] [address] [place] [address] Kevyn Cortés MD 5 2:15 PM CORPORATE COORDINATOR Office Visit [facility] Care at [address] [address] Holli Cardenas NP Contact dermatitis, unspecified contact dermatitis type, unspecified trigger (Primary Dx) from Last 3 Months Immunizations Immunization Administration Dates Next Due Influenza, Quadrivalent, Hig h Dose, Preservative Free, Intrr 06/17/2023,06/16/2022 Influenza, Split 09/03/2013, 2,07/15/2011,09/04 Influenza, Trivalent, High D ose, Split, Preservative Free, Intramuscular 06/21/2024,07/02/2016,07/29/2015 Influenza, Trivalent, IM (MDV) 09/03/2013 Influenza, Trivalent, Preser vative Free, Intramuscular 09/18/2014 Influenza, Unspecified 07/03/2020,2018,07/03/2018,07/09 Pneumococcal Conjugate PCV 13 01/29/2015 Pneumococcal Polysaccharide PPV23 10/22/2011,10/2005 Tdap 12/07/2013 ZOSTER LIVE 05/03/2014 Medical History Medical History Date Comments Hypercholesteremia Diabetes mellitus (HCC) Hypertension Type 2 diabetes mellitus (HCC) Cancer (CMS/HCC) (HCC) 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 Family History Medical History Relation Name Comments Stroke Maternal Grandmother 2 Strok e; Relation Name Status Comments Maternal Grandmother 1 Alive Maternal Grandmother 2 Social History Tobacco Use Types Packs/Day Years Used Date Smoking Tobacco: Never Smokeless Tobacco: Never Tobacco Cessation:Counseling Given: Not Answered Alcohol Use Standard Drinks/Week Comments Yes 0 [...] on file Legal Sex Female 5:02 PM CORPORATE COORDINATOR Gender Identity Female 11/24/2020 9:38 AM CORPORATE COORDINATOR Sexual Orientation Not on file Obstetrics History Last Filed Vital Signs Vital Sign Reading Time Taken Comments Blood Pressure 137/67 11/22/2024 11:32 AM CORPORATE COORDINATOR Pulse 72 11/22/2024 11:32 AM CORPORATE COORDINATOR Temperature 36.3 C (97.4 F) 11/22/2024 11:32 AM CORPORATE COORDINATOR Respiratory Rate 18 11/22/2024 11:32 AM CORPORATE COORDINATOR Oxygen Saturation 100% 11/22/2024 11:32 AM CORPORATE COORDINATOR Inhaled Oxygen Concentration - - Weight 50 kg (110 lb 3.7 oz) 11/20/2024 10:39 AM CORPORATE COORDINATOR Height 157.5 cm (5' 2 ) 11/20/2024 10:39 AM CORPORATE COORDINATOR Body Mass Index 20.16 11/20/2024 10:39 AM CORPORATE COORDINATOR Plan of Treatment Health Maintenance Due Date Last Done Comments Hepatitis B Screening 12/03/1958 Zoster Vaccine (2 of 3) 06/28/2014 05/03/2014 DTaP/Tdap/Td Vaccine (2 - Td or Tdap) 12/08/2023 12/07/2013 Covid-19 Vaccine (2 - 2023-2 5 season) 2024 12/09/2020 Osteoporosis Screening-Bone Density Scan 06/10/2025 06/10/2020, 07/26/2016 Depression Screening 06/21/2025 06/21/2024, 06/17/2023, 06/16/2022, Additional history exists Well Visit 65+ 06/21/2025 06/21/2024, 06/03, 06/16/2022, Additional history exists Fall Risk Assessment 11/22/2025 11/22/2024, 06/21/2024, 06/17/2023, Additional history exists Pneumococcal vaccine 65+ Completed 015, 10/22/2011, 11/03/2005 Influenza Vaccine Completed 06/21/2024, , 06/16/2022, Additional history exists Medical Devices Implanted Type Area Computer Language Coder Device Identifier Shelf Expiration Date Model / Serial / Lot [employer] [id number] [place] 50mm Sector Hip Shell Acetabular Gription Sterile Latex Free - [id number] Implanted:Qty: 1 on 02/03/2022 by Luis E Ko MD at [facility] [place] Right: Hip [employer] 08/02/2031 [id number] / / [id number] [employer] [place] 6.5mm 25mm Acetabular Cancellous Screw Bone Sterile 1217-25-500 - [id number] Implanted:Qty: 1 on 02/03/2022 by Luis E Ko MD at [facility] [place] Right: Hip [employer] 12/01/2031 1217-25-500 / / [id number] [employer] [id number] [place] 50mm 32mm Hip Neutral Liner Acetabular Altrx Sterile Latex Free - [id number] Implanted:Qty: 1 on 02/03/2022 by Luis E Ko MD at [facility] [place] Right: Hip [employer] 04/01/2026 [id number] / / [id number] [employer] [id number] Stem 1 High Offset Femoral Actis Hip Collar - [id number] Implanted:Qty: 1 on 02/03/2022 by Luis E Ko MD at [facility] [place] Right: Hip [employer] 12/31/2030 [id number] / / [id number] [employer] [id number] Articul/Bert 32mm Hip +9mm 12/14 T[place] Head Femoral Biolox Delta Latex Free - [id number] Implanted:Qty: 1 on 02/03/2022 by Luis E Ko MD at [facility] [place] Right: Hip [employer] 03/02/2026 [id number] / / [id number] Procedures Procedure Name Priority Date/Time Associated Diagnosis Comments HEMOGLOBIN AND HEMATOCRIT Timed 2024 12:17 PM CORPORATE COORDINATOR POCT GLUCOSE DEVICE Routine 11/22/2024 11:36 AM CORPORATE COORDINATOR POCT GLUCOSE DEVICE Routine 11/22/2024 7:20 AM CORPORATE COORDINATOR EGFR Routine 11/22/2024 5:49 AM CORPORATE COORDINATOR DIFFERENTIAL AUTO Routine 11/22/2024 5:49 AM CORPORATE COORDINATOR HEMOGLOBIN AND HEMATOCRIT Timed 2024 5:49 AM CORPORATE COORDINATOR PHOSPHORUS Routine 11/22/2024 5:49 AM CORPORATE COORDINATOR MAGNESIUM Routine 11/22/2024 5:49 AM CORPORATE COORDINATOR COMPREHENSIVE METABOLIC PANEL Routine 5:49 AM CORPORATE COORDINATOR CBC WITH AUTO DIFFERENTIAL Routine 11/22 5:49 AM CORPORATE COORDINATOR HEMOGLOBIN AND HEMATOCRIT Timed 2024 12:10 AM CORPORATE COORDINATOR POCT GLUCOSE DEVICE Routine 11/21/2024 8:25 PM CORPORATE COORDINATOR HEMOGLOBIN AND HEMATOCRIT Timed 2024 6:36 PM CORPORATE COORDINATOR POCT GLUCOSE DEVICE Routine 11/21/2024 4:31 PM CORPORATE COORDINATOR EGD 11/21/2024 1:52 PM CORPORATE COORDINATOR ENDO ADD ON ESOPHAGOGASTRODUODENOSCOPY REMOVAL HOT BIOPSY 11/21/2024 1:50 PM CORPORATE COORDINATOR Acute upper GI bleed ESOPHAGOGASTRODUODENOSCOPY INJECTION SUBMUCOSAL 11/21/2024 1:50 PM CORPORATE COORDINATOR Acute upper GI bleed HEMOGLOBIN AND HEMATOCRIT Timed 2024 11:59 AM CORPORATE COORDINATOR POCT GLUCOSE DEVICE Routine 11/21/2024 11:20 AM CORPORATE COORDINATOR POCT GLUCOSE DEVICE Routine 11/21/2024 7:49 AM CORPORATE COORDINATOR EGFR Routine 11/21/2024 5:40 AM CORPORATE COORDINATOR DIFFERENTIAL AUTO Routine 11/21/2024 5:40 AM CORPORATE COORDINATOR PHOSPHORUS Routine 11/21/2024 5:40 AM CORPORATE COORDINATOR MAGNESIUM Routine 11/21/2024 5:40 AM CORPORATE COORDINATOR COMPREHENSIVE METABOLIC PANEL Routine 5:40 AM CORPORATE COORDINATOR CBC WITH AUTO DIFFERENTIAL Routine 11/21 5:40 AM CORPORATE COORDINATOR POCT GLUCOSE DEVICE Routine 11/21/2024 2:10 AM CORPORATE COORDINATOR HEMOGLOBIN AND HEMATOCRIT Timed 2024 12:07 AM CORPORATE COORDINATOR POCT GLUCOSE DEVICE Routine 11/20/2024 8:30 PM CORPORATE COORDINATOR HEMOGLOBIN AND HEMATOCRIT Timed 2024 5:33 PM CORPORATE COORDINATOR POCT GLUCOSE DEVICE Routine 11/20/2024 4:32 PM CORPORATE COORDINATOR HEMOGLOBIN AND HEMATOCRIT Timed 2024 12:05 PM CORPORATE COORDINATOR POCT GLUCOSE DEVICE Routine 11/20/2024 11:32 AM CORPORATE COORDINATOR POCT GLUCOSE DEVICE Routine 11/20/2024 7:37 AM CORPORATE COORDINATOR MANUAL DIFFERENTIAL STAT 11/20/2024 5:20 AM CORPORATE COORDINATOR EGFR STAT 11/20/2024 5:20 AM CORPORATE COORDINATOR DIFFERENTIAL AUTO STAT 11/20/2024 5:20 AM CORPORATE COORDINATOR COMPREHENSIVE METABOLIC PANEL STAT 5:20 AM CORPORATE COORDINATOR CBC WITH AUTO DIFFERENTIAL STAT 11/20 5:20 AM CORPORATE COORDINATOR TROPONIN T HIGH-SENSITIVITY 6-HOUR Timed 11/20/2024 12:26 AM CORPORATE COORDINATOR TRANSFUSE RED BLOOD CELLS Timed 2024 10:[address] CHEST PE ABDOMEN PELVIS W CONTRAST ED 11/19/2024 10:33 PM CORPORATE COORDINATOR PREPARE RBC Timed 11/19/2024 10:18 PM CORPORATE COORDINATOR CROSSMATCH Timed 11/19/2024 9:17 PM CORPORATE COORDINATOR ANTIBODY SCREEN Timed 11/19/2024 9:17 PM CORPORATE COORDINATOR ABO/RH Timed 11/19/2024 9:17 PM CORPORATE COORDINATOR THYROID FUNCTION CASCADE Add-On 025 9:17 PM CORPORATE COORDINATOR IRON PROFILE W/ IBC STAT 11/19/2024 9:17 PM CORPORATE COORDINATOR TYPE AND SCREEN Timed 11/19/2024 9:17 PM CORPORATE COORDINATOR TROPONIN T HIGH-SENSITIVITY 2-HOUR Timed 11/19/2024 8:[address] CERVICAL SPINE WO CONTRAST ED 8:[address] HEAD WO CONTRAST ED 11/19/2024 8:25 PM CORPORATE COORDINATOR ECG 12-LEAD STAT 11/19/2024 5:54 PM CORPORATE COORDINATOR B ABO / RH CONFIRMATION TESTING STAT 11/19/2024 5:51 PM CORPORATE COORDINATOR EGFR STAT 11/19/2024 5:51 PM CORPORATE COORDINATOR DIFFERENTIAL AUTO STAT 11/19/2024 5:51 PM CORPORATE COORDINATOR TROPONIN T HIGH-SENSITIVITY SERIES (BASELINE, 2HR, 4HR, 6HR) STAT 11/19/2024 5:51 PM CORPORATE COORDINATOR CBC WITH AUTO DIFFERENTIAL STAT 11/19 5:51 PM CORPORATE COORDINATOR COMPREHENSIVE METABOLIC PANEL STAT 5:51 PM CORPORATE COORDINATOR DEXA AXIAL SKELETON BONE DENSITY 1 OR MORE SITES Schedule Routine, Read Routine (OP Routine) 06/10/2020 from Last 3 Months or Most Recently Relevant to Health Maintenance Results * (ABNORMAL) Hemoglobin and hematocrit (11/22/2024 12:17 PM CORPORATE COORDINATOR) Hgb 8.7(L) 11.9 - 15.5 g/dL Hct 24.7(L) 35.6 - 45.5 % [facility] Blood 11/22/2024 12:1 7 PM CORPORATE COORDINATOR 11/22/2024 12:20 PM CORPORATE COORDINATOR us Namita Montero MD LAB BLOOD ORDERABLES Final Resu lt Performing Organization Address City/[facility]/ZIP Co de Phone Number [facility] ([place]) 1 [facility] Department [place] [address] * POCT glucose (11/22/2024 11:36 AM CORPORATE COORDINATOR) Glucose, POC 128 70 - 199 mg/dL Blood 11/22/2024 11:3 6 AM CORPORATE COORDINATOR 11/22/2024 11:36 AM CORPORATE COORDINATOR us Lele Barriga II, MD LAB POCT ORDERABLES - DEVICE Final Result [facility] ([place] 1 [facility] [place] [address] * POCT glucose (11/22/2024 7:20 AM CORPORATE COORDINATOR) Glucose, POC 105 70 - 199 mg/dL Blood 11/22/2024 7:20 AM CORPORATE COORDINATOR 11/22/2024 7:20 AM CORPORATE COORDINATOR us Lele Barriga II, MD LAB POCT ORDERABLES - DEVICE Final Result [facility] ([place]) 1 [facility] [employer] [place] [address] * (ABNORMAL) eGFR (11/22/2024 5:49 AM CORPORATE COORDINATOR) eGFR 50(L) >=60 mL/min/1. 73 m2 Comment: Interpretive Data Reference Interval Normal >/= 90 mL/min/1.73m2 Mildly decreased* 60 - 89 mL/min/1.73m2 Mildly to moderately decreased 45 - 59 mL/min/1.73m2 Moderately to severely decreased 30 - 44 mL/min/1.73m2 Severely decreased 15 - 29 mL/min/1.73m2 Kidney Failure < 15 mL/min/1.73m2 *Relative to young adult level Estimated glomerular filtration rate is determined by the 2020 CKD-EPI equation recommended by the National Kidney Foundation (A Unifying Approach to GFR Estimation: Recommendations of the NKF-ASK Task Force on Reassessing the Inclusion of Race in Diagnosing Kidney Disease, JASN 2020). The CKD-EPI equation should not be used for patients with unstable renal function and has not been validated in children and those over 70. Current interpretive data was last reviewed 2021. Blood 11/22/2024 5:49 AM CORPORATE COORDINATOR 11/22/2024 6:04 AM CORPORATE COORDINATOR us Namita Montero MD LAB BLOOD ORDERABLES Final Resu lt [facility] 1 [facility] [place] [address] * Differential, auto (11/22/2024 5:49 AM CORPORATE COORDINATOR) Neutrophil abs 3.9 1.5 - 6.5 K/cumm Imm gran abs 0.0 0.0 - 0.1 K/cumm [facility] Lymphocyte abs 1.2 0.8 - 3.3 K/cumm [facility] Monocyte abs 0.8 0.2 - 0.8 K/cumm [facility] Eosinophil abs 0.3 0.0 - 0.5 K/cumm [facility] Basophil abs 0.0 0.0 - 0.1 K/cumm [facility] Neutrophil pct 63.2 % [facility] Comment: Interpretive Data Percent cell count reference ranges are not reported, since discordance with absolute values may lead to misinterpretation of CBC data. Current Interpretive Data was last revised on 2018. Imm gran pct 0.3 % [facility]) Comment: Interpretive Data Percent cell count reference ranges are not reported, since discordance with absolute values may lead to misinterpretation of CBC data. Current Interpretive Data was last revised on 2018. Lymphocyte pct 19.8 % [facility] Comment: Interpretive Data Percent cell count reference ranges are not reported, since discordance with absolute values may lead to misinterpretation of CBC data. Current Interpretive Data was last revised on 2018. Monocyte pct 12.2 % [facility] Comment: Interpretive Data Percent cell count reference ranges are not reported, since discordance with absolute values may lead to misinterpretation of CBC data. Current Interpretive Data was last revised on 2018. Eosinophil pct 4.2 % [facility] Comment: Interpretive Data Percent cell count reference ranges are not reported, since discordance with absolute values may lead to misinterpretation of CBC data. Current Interpretive Data was last revised on 2018. Basophil pct 0.3 % [facility] Comment: Interpretive Data Percent cell count reference ranges are not reported, since discordance with absolute values may lead to misinterpretation of CBC data. Current Interpretive Data was last revised on 2018. Blood 11/22/2024 5:49 AM CORPORATE COORDINATOR 11/22/2024 6:03 AM CORPORATE COORDINATOR Nicolas Salvador MD LAB BLOOD ORDERABLES Final Result [facility] ([place]) 1 [facility] Department [place] [address] * (ABNORMAL) CBC with auto differential (11/22/2024 5:49 AM CORPORATE COORDINATOR) WBC 6.2 3.8 - 9.9 K/cumm Hgb 8.6(L) 11.9 - 15.5 g/dL [facility] Hct 25.4(L) 35.6 - 45.5 % [facility] Plt 156 150 - 400 K/cumm [facility] MPV 10.7 9.1 - 12.3 fL [facility] RBC 2.58(L) 3.90 - 5.20 M/cumm [facility] MCV 98.4(H) 81.3 - 96.4 fL [facility] MCH 33.3 27.1 - 33.3 pg [facility] MCHC 33.9 32.3 - 35.7 g/dL [facility] RDW CV 13.4 11.1 - 14.9 % [facility] RDW SD 47.8 35.7 - 48.1 fL [facility] NRBC abs 0.00 0.00 - 0.01 K/cumm [facility] Blood 11/22/2024 5:49 AM CORPORATE COORDINATOR 11/22/2024 6:03 AM CORPORATE COORDINATOR Nicolas Salvador MD LAB BLOOD ORDERABLES Final Result [facility] ([place]) 1 [facility] Department [place] [address] * (ABNORMAL) Hemoglobin and hematocrit (11/22/2024 5:49 AM CORPORATE COORDINATOR) Hgb 8.5(L) 11.9 - 15.5 g/dL Hct 25.3(L) 35.6 - 45.5 % [facility] Blood 11/22/2024 5:49 AM CORPORATE COORDINATOR 11/22/2024 6:03 AM CORPORATE COORDINATOR Namita Montero MD LAB BLOOD ORDERABLES Final Resu lt [facility] 1 [facility] [place] [address] * Phosphorus (11/22/2024 5:49 AM CORPORATE COORDINATOR) Pathologist [facility] Phosphorus, pl 3.0 2.3 - 4.5 mg/dL Blood 11/22/2024 5:49 AM CORPORATE COORDINATOR 11/22/2024 6:04 AM CORPORATE COORDINATOR Namita Montero MD LAB BLOOD ORDERABLES Final Resu lt Performing Organization Address City/[facility]/ZIP Co de Phone Number [facility] 1 [facility] [place] [employer] [place] [address] * Magnesium (11/22/2024 5:49 AM CORPORATE COORDINATOR) [facility] Magnesium 2.0 1.4 - 2.5 mg/dL Blood 11/22/2024 5:49 AM CORPORATE COORDINATOR 11/22/2024 6:04 AM CORPORATE COORDINATOR Namita Montero MD LAB BLOOD ORDERABLES Final Resu lt [facility] 1 [facility] [place] [address] * (ABNORMAL) Comprehensive metabolic panel (11/22/2024 5:49 AM CORPORATE COORDINATOR) [facility] Sodium 141 135 - 145 mmol/L Potassium, pl 3.7 3.3 - 4.9 mmol/L [facility] Chloride 105 97 - 110 mmol/L [facility] CO2 23 22 - 32 mmol/L [facility] Anion gap 13 2 - 15 mmol/L [facility] BUN 29(H) 6 - 25 mg/dL [facility] Creatinine 1.11(H) 0.60 - 1.10 mg/dL [facility] Glucose 94 70 - 199 mg/dL [facility] Comment: Interpretive Data Fasting glucose >/= 126 mg/dl is diagnostic for diabetes. Fasting is defined as no caloric intake for at least 8 hours. Fasting glucose between 100 mg/dl to 125 mg/dl is diagnostic of prediabetes. In a patient with classic symptoms of hyperglycemia or hyperglycemic crisis, a random glucose >/= 200 mg/dl is diagnostic for diabetes. In the absence of unequivocal hyperglycemia, results should be confirmed by repeat testing. The classification and Diagnosis of Diabetes Diabetes Care 2021; 46: S19-S40. Current interpretive data was last revised 2022. Calcium 9.6 8.5 - 10.3 mg/dL [facility] Bilirubin, total 0.4 0.1 - 1.2 mg/dL [facility] Protein, pl 5.5(L) 6.5 - 8.5 g/dL [facility] Albumin 3.7 3.5 - 5.0 g/dL [facility] Alk phos 33(L) 40 - 130 Units/L [facility] ALT 24 7 - 45 Units/L [facility] AST 37 10 - 45 Units/L [facility] Blood 11/22/2024 5:49 AM CORPORATE COORDINATOR 11/22/2024 6:04 AM CORPORATE COORDINATOR us Namita Montero MD LAB BLOOD ORDERABLES Final Resu lt [facility] ([place]) 1 [facility] Department [place] [address] * (ABNORMAL) Hemoglobin and hematocrit (11/22/2024 12:10 AM CORPORATE COORDINATOR) Hgb 8.4(L) 11.9 - 15.5 g/dL Hct 24.4(L) 35.6 - 45.5 % [facility]) Blood 11/22/2024 12:1 0 AM CORPORATE COORDINATOR 11/22/2024 12:38 AM CORPORATE COORDINATOR Namita Montero MD LAB BLOOD ORDERABLES Final Resu lt [facility] 1 [facility] [employer] [place] [address] * POCT glucose (11/21/2024 8:25 PM CORPORATE COORDINATOR) Glucose, POC 102 70 - 199 mg/dL Blood 11/21/2024 8:25 PM CORPORATE COORDINATOR 11/21/2024 8:25 PM CORPORATE COORDINATOR Namita Montero MD LAB POCT ORDERABLES - DEVICE Fi nal Result Performing Organization Address City/[facility]/ZIP Co de Phone Number [facility] 1 [facility] [employer] [place] [address] * (ABNORMAL) Hemoglobin and hematocrit (11/21/2024 6:36 PM CORPORATE COORDINATOR) Hgb 8.2(L) 11.9 - 15.5 g/dL Hct 24.7(L) 35.6 - 45.5 % [facility]) Blood 11/21/2024 6:36 PM CORPORATE COORDINATOR 11/21/2024 7:05 PM CORPORATE COORDINATOR Namita Montero MD LAB BLOOD ORDERABLES Final Resu lt [facility] 1 [facility] [place] [address] * POCT glucose (11/21/2024 4:31 PM CORPORATE COORDINATOR) Glucose, POC 120 70 - 199 mg/dL Blood 11/21/2024 4:31 PM CORPORATE COORDINATOR 11/21/2024 4:31 PM CORPORATE COORDINATOR us Namita Montero MD LAB POCT ORDERABLES - DEVICE Fi nal Result [facility] ([place]) 1 [facility] Department [place] [address] * EGD (11/21/2024 1:52 PM CORPORATE COORDINATOR) Anatomical Region Laterality Modality Other Narrative Procedure Note Fco Vivar MD - 11/21/2024 1:52 PM CST [facility] Patient Name: Lori Burns Procedure Date: 11/21/2024 1:52 PM Date of : 1940 Admit Type: Inpatient Age: 83 Gender: Female Attending MD: Fco Vivar M.D. Room: [facility] ENDOSCOPY ROOM 2 Note Status: Finalized Patient Profile: This is an 83 year old female hx of HTN, HLD, DM2 presented to the ER for weakness and melena. Hgb8.1, down from 12.4 from 06/2024. No recurrence ofbleeding since admission, no active GI issues. Hgb has been stable 8.9 after 1 unit. She takes ibuprofenseveral times a week for joint pain. Procedure: Upper GI endoscopy Indications: Acute post hemorrhagic anemia, Melena Referring MD: Kevyn Cortés M.D. Providers: Fco Vivar M.D. Impression: - Small hiatal hernia. - Erythematous mucosa in the greater curvature ofthe gastric body and antrum. Biopsied. - Duodenal ulcer with a nonbleeding visible vessel (Giancarlo Class IIa). Injected. Treated with bipolar cautery. - Erythematous duodenopathy. Recommendation: - Return patient to [facility]. - Soft diet for 1 week. - Await pathology results. - Use Protonix (pantoprazole) 40 mg PO BID for 3 months then decrease to once daily indefinitely - No ibuprofen, naproxen, or other non-steroidal anti-inflammatory drugs. - Monitor one more night, if Hgb stable in am then okay to discharge home tomorrow. Medicines: Monitored Anesthesia Care Complications: No immediate complications. Estimated Blood Loss: Estimated blood loss was minimal. Procedure: Pre-Anesthesia Assessment: - Prior to the procedure, a History and Physicalwas performed, and patient medications and allergieswere reviewed. The patient is competent. The risks and benefits of the procedure and the sedation optionsand risks were discussed with the patient. Allquestions were answered and informed consent was obtained. Patient identification and proposed procedure were verified by the physician, the hydraulic plumber helper and the tree trimming line technician in the endoscopy suite. Mental Status Examination: normal. Prophylactic Antibiotics: The patient does not require prophylactic antibiotics. Prior Anticoagulants: The patient has taken no anticoagulant or antiplatelet agents. Afterreviewing the risks and benefits, the patient was deemed in satisfactory condition to undergo the procedure.The anesthesia plan was to use monitored anesthesiacare (MAC). Immediately prior to administration of medications, the patient was re-assessed foradequacy to receive sedatives. The heart rate, respiratory rate, oxygen saturations, blood pressure, adequacyof pulmonary ventilation, and response to care were monitored throughout the procedure. The physical status of the patient was re-assessed after the procedure. The benefits, risks, and alternatives to theprocedure and sedation were discussed and informed consentwas obtained. The scope was passed under direct vision. The Endoscope [id number] was introduced through the mouth, and advanced to the second partof duodenum. The upper GI endoscopy was accomplished without difficulty. The patient tolerated the procedure well. Findings: A small 1-2 cm hiatal hernia was present. The exam of the esophagus was otherwise normal. Mildly erythematous mucosa was found on the greater curvature of the gastric body and in the gastric antrum. Biopsies were taken with acold forceps for Helicobacter pylori testing. One cratered duodenal ulcer with a nonbleeding visible vessel(Giancarlo Class IIa) was found in the duodenal bulb. Area was successfully injected with 3 mL of a 0.1 mg/mL solution of epinephrine for drug delivery. Coagulation for bleeding prevention using bipolar probe was successful. Patchy mildly erythematous mucosa without active bleeding and with no stigmata of bleeding was found in the duodenal bulb. Fco Vivar M.D. 11/21/2024 2:49:13 PM Number of Addenda: 0 Note Initiated On: 11/21/2024 1:52 PM Procedure Code(s): --- Professional --- 68923, 59, Esophagogastroduodenoscopy, flexible, transoral; withcontrol of bleeding, any method --- Technical --- 31106, 59, Esophagogastroduodenoscopy, flexible, transoral; withcontrol of bleeding, any method Diagnosis Code(s): --- Professional --- D62, Acute posthemorrhagic anemia K92.1, Melena (includes Hematochezia) --- Technical --- D62, Acute posthemorrhagic anemia K92.1, Melena (includes Hematochezia) CPT copyright 2020 [employer]. All rights reserved. The codes documented in this report are preliminary and upon skelp processor reviewmay be revised to meet current compliance requirements. Recognized by the [employer] for promoting quality in endoscopy us Fco Vivar MD ENDOSCOPY PROCEDURES Final Resul t * (ABNORMAL) Hemoglobin and hematocrit (11/21/2024 11:59 AM CORPORATE COORDINATOR) [facility] Hgb 8.9(L) 11.9 - 15.5 g/dL Hct 26.7(L) 35.6 - 45.5 % [facility] Blood 11/21/2024 11:5 9 AM CORPORATE COORDINATOR 11/21/2024 12:31 PM CORPORATE COORDINATOR Namita Montero MD LAB BLOOD ORDERABLES Final [facility]u lt [facility] [address] [place] [address] [place] [address] * POCT glucose (11/21/2024 11:20 AM CORPORATE COORDINATOR) [facility] Glucose, POC 123 70 - 199 mg/dL Blood 11/21/2024 11:2 0 AM CORPORATE COORDINATOR 11/21/2024 11:20 AM CORPORATE COORDINATOR Namita Montero MD LAB POCT ORDERABLES - DEVICE Fi nal Result Performing Organization Address [facility] Co de Phone Number [facility] [address] [place] [address] [place] [address] * POCT glucose (11/21/2024 7:49 AM CORPORATE COORDINATOR) [facility] Glucose, POC 121 70 - 199 mg/dL Blood 11/21/2024 7:49 AM CORPORATE COORDINATOR 11/21/2024 7:49 AM CORPORATE COORDINATOR Namita Montero MD LAB POCT ORDERABLES - DEVICE Fi nal Result Performing Organization Address City/[facility]/ZIP Co de Phone Number [facility] [address] [place] [address] [employer] [place] [address] * (ABNORMAL) eGFR (11/21/2024 5:40 AM CORPORATE COORDINATOR) eGFR 40(L) >=60 mL/min/1. 73 m2 Comment: Interpretive Data Reference Interval Normal >/= 90 mL/min/1.73m2 Mildly decreased* 60 - 89 mL/min/1.73m2 Mildly to moderately decreased 45 - 59 mL/min/1.73m2 Moderately to severely decreased 30 - 44 mL/min/1.73m2 Severely decreased 15 - 29 mL/min/1.73m2 Kidney Failure < 15 mL/min/1.73m2 *Relative to young adult level Estimated glomerular filtration rate is determined by the 2020 CKD-EPI equation recommended by the National Kidney Foundation (A Unifying Approach to GFR Estimation: Recommendations of the NKF-ASK Task Force on Reassessing the Inclusion of Race in Diagnosing Kidney Disease, JASN 2020). The CKD-EPI equation should not be used for patients with unstable renal function and has not been validated in children and those over 70. Current interpretive data was last reviewed 2021. Blood 11/21/2024 5:40 AM CORPORATE COORDINATOR 11/21/2024 5:58 AM CORPORATE COORDINATOR us Namita Montero MD LAB BLOOD ORDERABLES Final Resu lt [facility] ([place]) 1 [facility] Department of Laboratories [place], [place] [id number] * (ABNORMAL) Differential, auto (11/21/2024 5:40 AM CORPORATE COORDINATOR) Neutrophil abs 3.7 1.5 - 6.5 K/cumm Imm gran abs 0.0 0.0 - 0.1 K/cumm [facility] ([place]) Lymphocyte abs 1.4 0.8 - 3.3 K/cumm [facility] ([facility]) Monocyte abs 1.0(H) 0.2 - 0.8 K/cumm [facility] ([place]) Eosinophil abs 0.3 0.0 - 0.5 K/cumm [facility] ([place]) Basophil abs 0.0 0.0 - 0.1 K/cumm [facility] ([facility]) Neutrophil pct 56.9 % [facility] ([place]) Comment: Interpretive Data Percent cell count reference ranges are not reported, since discordance with absolute values may lead to misinterpretation of CBC data. Current Interpretive Data was last revised on 2018. Imm gran pct 0.3 % [facility] ([place]) Comment: Interpretive Data Percent cell count reference ranges are not reported, since discordance with absolute values may lead to misinterpretation of CBC data. Current Interpretive Data was last revised on 2018. Lymphocyte pct 22.3 % [facility] ([place]) Comment: Interpretive Data Percent cell count reference ranges are not reported, since discordance with absolute values may lead to misinterpretation of CBC data. Current Interpretive Data was last revised on 2018. Monocyte pct 15.0 % [facility] ([place]) Comment: Interpretive Data Percent cell count reference ranges are not reported, since discordance with absolute values may lead to misinterpretation of CBC data. Current Interpretive Data was last revised on 2018. Eosinophil pct 5.0 % [facility] ([facility]) Comment: Interpretive Data Percent cell count reference ranges are not reported, since discordance with absolute values may lead to misinterpretation of CBC data. Current Interpretive Data was last revised on 2018. Basophil pct 0.5 % [facility] ([facility]) Comment: Interpretive Data Percent cell count reference ranges are not reported, since discordance with absolute values may lead to misinterpretation of CBC data. Current Interpretive Data was last revised on 2018. Blood 11/21/2024 5:40 AM CORPORATE COORDINATOR 11/21/2024 5:58 AM CORPORATE COORDINATOR Nicolas Salvador MD LAB BLOOD ORDERABLES Final Result [facility] ([place]) 1 [facility] Department [place] [address] * (ABNORMAL) CBC with auto differential (11/21/2024 5:40 AM CORPORATE COORDINATOR) WBC 6.5 3.8 - 9.9 K/cumm Hgb 8.2(L) 11.9 - 15.5 g/dL [facility] ([facility]) Hct 23.9(L) 35.6 - 45.5 % [facility] ([place]) Plt 146(L) 150 - 400 K/cumm [facility] ([facility]) MPV 11.1 9.1 - 12.3 fL [facility] ([place]) RBC 2.45(L) 3.90 - 5.20 M/cumm [facility] ([facility]) MCV 97.6(H) 81.3 - 96.4 fL [facility] ([place]) MCH 33.5(H) 27.1 - 33.3 pg [facility] ([place]) MCHC 34.3 32.3 - 35.7 g/dL [facility] ([facility]) RDW CV 14.0 11.1 - 14.9 % [facility] ([place]) RDW SD 50.1(H) 35.7 - 48.1 fL [facility] ([facility]) NRBC abs 0.00 0.00 - 0.01 K/cumm [facility] ([facility]) Blood 11/21/2024 5:40 AM CORPORATE COORDINATOR 11/21/2024 5:58 AM CORPORATE COORDINATOR us Nicolas Salvador MD LAB BLOOD ORDERABLES Final Result [facility] ([place]) 1 [facility] [employer] [place] [address] * Phosphorus (11/21/2024 5:40 AM CORPORATE COORDINATOR) Phosphorus, pl 3.7 2.3 - 4.5 mg/dL Blood 11/21/2024 5:40 AM CORPORATE COORDINATOR 11/21/2024 5:58 AM CORPORATE COORDINATOR us Namita Montero MD LAB BLOOD ORDERABLES Final Resu lt [facility] ([place]) 1 [facility] [employer] [place] [address] * Magnesium (11/21/2024 5:40 AM CORPORATE COORDINATOR) Magnesium 2.1 1.4 - 2.5 mg/dL Blood 11/21/2024 5:40 AM CORPORATE COORDINATOR 11/21/2024 5:58 AM CORPORATE COORDINATOR us Namita Montero MD LAB BLOOD ORDERABLES Final Resu lt [facility] ([place]) 1 [facility] Department [place] [address] * (ABNORMAL) Comprehensive metabolic panel (11/21/2024 5:40 AM CORPORATE COORDINATOR) Sodium 141 135 - 145 mmol/L Potassium, pl 4.2 3.3 - 4.9 mmol/L [facility] ([facility]) Chloride 106 97 - 110 mmol/L [facility] ([facility]) CO2 25 22 - 32 mmol/L [facility] ([facility]) Anion gap 10 2 - 15 mmol/L [facility] ([place]) BUN 45(H) 6 - 25 mg/dL [facility] ([facility]) Creatinine 1.32(H) 0.60 - 1.10 mg/dL [facility] ([facility]) Glucose 108 70 - 199 mg/dL [facility] ([place]) Comment: Interpretive Data Fasting glucose >/= 126 mg/dl is diagnostic for diabetes. Fasting is defined as no caloric intake for at least 8 hours. Fasting glucose between 100 mg/dl to 125 mg/dl is diagnostic of prediabetes. In a patient with classic symptoms of hyperglycemia or hyperglycemic crisis, a random glucose >/= 200 mg/dl is diagnostic for diabetes. In the absence of unequivocal hyperglycemia, results should be confirmed by repeat testing. The classification and Diagnosis of Diabetes Diabetes Care 2021; 46: S19-S40. Current interpretive data was last revised 2022. Calcium 9.7 8.5 - 10.3 mg/dL [facility] ([facility]) Bilirubin, total 0.4 0.1 - 1.2 mg/dL [facility] ([place]) Protein, pl 5.4(L) 6.5 - 8.5 g/dL [facility] ([place]) Albumin 3.6 3.5 - 5.0 g/dL [facility] ([facility]) Alk phos 33(L) 40 - 130 Units/L [facility] ([place]) ALT 16 7 - 45 Units/L [facility] ([facility]) AST 31 10 - 45 Units/L [facility] ([facility]) Blood 11/21/2024 5:40 AM CORPORATE COORDINATOR 11/21/2024 5:58 AM CORPORATE COORDINATOR Namita Montero MD LAB BLOOD ORDERABLES Final Resu lt Performing Organization Address [facility]/ZIP Co de Phone Number [facility] ([place]) 1 [facility] [employer] [place] [address] * POCT glucose (11/21/2024 2:10 AM CORPORATE COORDINATOR) Glucose, POC 109 70 - 199 mg/dL Blood 11/21/2024 2:10 AM CORPORATE COORDINATOR 11/21/2024 2:10 AM CORPORATE COORDINATOR Namita Montero MD LAB POCT ORDERABLES - DEVICE Fi nal Result Performing Organization Address [facility] Co de Phone Number [facility] ([place]) 1 [facility] [employer] [place] [address] * (ABNORMAL) Hemoglobin and hematocrit (11/21/2024 12:07 AM CORPORATE COORDINATOR) Hgb 8.0(L) 11.9 - 15.5 g/dL Hct 23.5(L) 35.6 - 45.5 % [facility] ([place]) Blood 11/21/2024 12:0 7 AM CORPORATE COORDINATOR 11/21/2024 12:19 AM CORPORATE COORDINATOR Namita Montero MD LAB BLOOD ORDERABLES Final Resu lt Performing Organization Address [facility] Co de Phone Number [facility] ([place]) 1 [facility] [employer] [place] [address] * POCT glucose (11/20/2024 8:30 PM CORPORATE COORDINATOR) Glucose, POC 139 70 - 199 mg/dL Blood 11/20/2024 8:30 PM CORPORATE COORDINATOR 11/20/2024 8:30 PM CORPORATE COORDINATOR us Namita Montero MD LAB POCT ORDERABLES - DEVICE Fi nal Result Performing Organization Address [facility] Co de Phone Number [facility] ([place]) 1 [facility] [employer] [place] [address] * (ABNORMAL) Hemoglobin and hematocrit (11/20/2024 5:33 PM CORPORATE COORDINATOR) Hgb 8.3(L) 11.9 - 15.5 g/dL Hct 24.2(L) 35.6 - 45.5 % [facility] ([place]) Blood 11/20/2024 5:33 PM CORPORATE COORDINATOR 11/20/2024 6:45 PM CORPORATE COORDINATOR Namita Montero MD LAB BLOOD ORDERABLES Final Resu lt Performing Organization Address [facility] Co de Phone Number [facility] ([place]) 1 [facility] [employer] [place] [address] * POCT glucose (11/20/2024 4:32 PM CORPORATE COORDINATOR) Glucose, POC 126 70 - 199 mg/dL Blood 11/20/2024 4:32 PM CORPORATE COORDINATOR 11/20/2024 4:32 PM CORPORATE COORDINATOR Namita Montero MD LAB POCT ORDERABLES - DEVICE Fi nal Result Performing Organization Address [facility] Co de Phone Number [facility] ([place]) 1 [facility] [employer] [place] [address] * (ABNORMAL) Hemoglobin and hematocrit (11/20/2024 12:05 PM CORPORATE COORDINATOR) Hgb 8.2(L) 11.9 - 15.5 g/dL Hct 23.7(L) 35.6 - 45.5 % [facility] ([place]) Blood 11/20/2024 12:0 5 PM CORPORATE COORDINATOR 11/20/2024 12:23 PM CORPORATE COORDINATOR us Namita Montero MD LAB BLOOD ORDERABLES Final Resu lt [facility] ([place]) 1 [facility] [employer] [place] [address] * POCT glucose (11/20/2024 11:32 AM CORPORATE COORDINATOR) Glucose, POC 167 70 - 199 mg/dL Blood 11/20/2024 11:3 2 AM CORPORATE COORDINATOR 11/20/2024 11:32 AM CORPORATE COORDINATOR us Namita Montero MD LAB POCT ORDERABLES - DEVICE Fi nal Result Performing Organization Address [facility] Co de Phone Number [facility] ([place]) 1 [facility] [employer] [place] [address] * POCT glucose (11/20/2024 7:37 AM CORPORATE COORDINATOR) Glucose, POC 143 70 - 199 mg/dL Blood 11/20/2024 7:37 AM CORPORATE COORDINATOR 11/20/2024 7:37 AM CORPORATE COORDINATOR us Namita Montero MD LAB POCT ORDERABLES - DEVICE Fi nal Result Performing Organization Address City/[facility] Co de Phone Number [facility] ([place]) 1 [facility] [employer] [place] [address] * (ABNORMAL) eGFR (11/20/2024 5:20 AM CORPORATE COORDINATOR) eGFR 42(L) >=60 mL/min/1. 73 m2 Comment: Interpretive Data Reference Interval Normal >/= 90 mL/min/1.73m2 Mildly decreased* 60 - 89 mL/min/1.73m2 Mildly to moderately decreased 45 - 59 mL/min/1.73m2 Moderately to severely decreased 30 - 44 mL/min/1.73m2 Severely decreased 15 - 29 mL/min/1.73m2 Kidney Failure < 15 mL/min/1.73m2 *Relative to young adult level Estimated glomerular filtration rate is determined by the 2020 CKD-EPI equation recommended by the National Kidney Foundation (A Unifying Approach to GFR Estimation: Recommendations of the NKF-ASK Task Force on Reassessing the Inclusion of Race in Diagnosing Kidney Disease, JASN 2020). The CKD-EPI equation should not be used for patients with unstable renal function and has not been validated in children and those over 70. Current interpretive data was last reviewed 2021. Blood 11/20/2024 5:20 AM CORPORATE COORDINATOR 11/20/2024 5:21 AM CORPORATE COORDINATOR us Nicolas Salvador MD LAB BLOOD ORDERABLES Final Result [facility] ([place] 1 [facility] Department [place] [address] * (ABNORMAL) Differential, auto (11/20/2024 5:20 AM CORPORATE COORDINATOR) Neutrophil abs 4.6 1.5 - 6.5 K/cumm Imm gran abs 0.0 0.0 - 0.1 K/cumm [facility] ([place]) Lymphocyte abs 1.8 0.8 - 3.3 K/cumm [facility] ([place]) Monocyte abs 1.1(H) 0.2 - 0.8 K/cumm [facility] ([place]) Eosinophil abs 0.1 0.0 - 0.5 K/cumm [facility] ([place]) Basophil abs 0.0 0.0 - 0.1 K/cumm [facility] ([place]) Neutrophil pct 60.2 % [facility] ([place]) Comment: Interpretive Data Percent cell count reference ranges are not reported, since discordance with absolute values may lead to misinterpretation of CBC data. Current Interpretive Data was last revised on 2018. Imm gran pct 0.4 % [facility] ([place]) Comment: Interpretive Data Percent cell count reference ranges are not reported, since discordance with absolute values may lead to misinterpretation of CBC data. Current Interpretive Data was last revised on 2018. Lymphocyte pct 23.6 % [facility] ([place]) Comment: Interpretive Data Percent cell count reference ranges are not reported, since discordance with absolute values may lead to misinterpretation of CBC data. Current Interpretive Data was last revised on 2018. Monocyte pct 14.7 % [facility] ([place]) Comment: Interpretive Data Percent cell count reference ranges are not reported, since discordance with absolute values may lead to misinterpretation of CBC data. Current Interpretive Data was last revised on 2018. Eosinophil pct 0.8 % [facility] ([facility]) Comment: Interpretive Data Percent cell count reference ranges are not reported, since discordance with absolute values may lead to misinterpretation of CBC data. Current Interpretive Data was last revised on 2018. Basophil pct 0.3 % [facility] ([place]) Comment: Interpretive Data Percent cell count reference ranges are not reported, since discordance with absolute values may lead to misinterpretation of CBC data. Current Interpretive Data was last revised on 2018. Blood 11/20/2024 5:20 AM CORPORATE COORDINATOR 11/20/2024 5:21 AM CORPORATE COORDINATOR us Nicolas Salvador MD LAB BLOOD ORDERABLES Final Result [facility] ([place]) 1 [facility] Department [place] [address] * (ABNORMAL) CBC with auto differential (11/20/2024 5:20 AM CORPORATE COORDINATOR) WBC 7.6 3.8 - 9.9 K/cumm Hgb 8.4(L) 11.9 - 15.5 g/dL [facility] ([facility]) Hct 25.0(L) 35.6 - 45.5 % [facility] ([place]) Plt 138(L) 150 - 400 K/cumm [facility] ([facility]) MPV 11.0 9.1 - 12.3 fL [facility] ([place]) RBC 2.54(L) 3.90 - 5.20 M/cumm [facility] ([place]) MCV 98.4(H) 81.3 - 96.4 fL [facility] ([place]) MCH 33.1 27.1 - 33.3 pg [facility] ([place]) MCHC 33.6 32.3 - 35.7 g/dL [facility] ([place]) RDW CV 13.3 11.1 - 14.9 % [facility] ([place]) RDW SD 47.8 35.7 - 48.1 fL [facility] ([place]) NRBC abs 0.00 0.00 - 0.01 K/cumm [facility] ([place]) Blood 11/20/2024 5:20 AM CORPORATE COORDINATOR 11/20/2024 5:21 AM CORPORATE COORDINATOR us Nicolas Salvador MD LAB BLOOD ORDERABLES Final Result [facility] ([place] 1 [facility] Department [place] [address] * (ABNORMAL) Manual Differential (11/20/2024 5:20 AM CORPORATE COORDINATOR) Differential Auto Neutrophil abs 4.6 1.5 - 6.5 K/cumm [facility] ([place]) Imm gran abs 0.0 0.0 - 0.1 K/cumm [facility] ([place]) Lymphocyte abs 1.8 0.8 - 3.3 K/cumm [facility] ([place]) Monocyte abs 1.1(H) 0.2 - 0.8 K/cumm [facility] ([place]) Eosinophil abs 0.1 0.0 - 0.5 K/cumm [facility] ([place]) Basophil abs 0.0 0.0 - 0.1 K/cumm [facility] ([place]) Neutrophil pct 60.2 % [facility] ([place]) Comment: Interpretive Data Percent cell count reference ranges are not reported, since discordance with absolute values may lead to misinterpretation of CBC data. Current Interpretive Data was last revised on 2018. Imm gran pct 0.4 % [facility] ([place]) Comment: Interpretive Data Percent cell count reference ranges are not reported, since discordance with absolute values may lead to misinterpretation of CBC data. Current Interpretive Data was last revised on 2018. Lymphocyte pct 23.6 % [facility] ([place]) Comment: Interpretive Data Percent cell count reference ranges are not reported, since discordance with absolute values may lead to misinterpretation of CBC data. Current Interpretive Data was last revised on 2018. Monocyte pct 14.7 % [facility] ([place]) Comment: Interpretive Data Percent cell count reference ranges are not reported, since discordance with absolute values may lead to misinterpretation of CBC data. Current Interpretive Data was last revised on 2018. Eosinophil pct 0.8 % [facility] ([place]) Comment: Interpretive Data Percent cell count reference ranges are not reported, since discordance with absolute values may lead to misinterpretation of CBC data. Current Interpretive Data was last revised on 2018. Basophil pct 0.3 % [facility] ([place]) Comment: Interpretive Data Percent cell count reference ranges are not reported, since discordance with absolute values may lead to misinterpretation of CBC data. Current Interpretive Data was last revised on 2018. RBC morphology Consistent with RBC Indicies [facility] ([facility]) Anisocytosis Slight(A) [facility] ([facility]) Microcytes 3-7/HPF(A) [facility] ([facility]) Platelet estimate Adequate [facility] ([facility]) Blood 11/20/2024 5:20 AM CORPORATE COORDINATOR 11/20/2024 5:21 AM CORPORATE COORDINATOR us Nicolas Salvador MD LAB BLOOD ORDERABLES Final Result [facility] ([facility]) 1 [facility] Department [place] [address] * (ABNORMAL) Comprehensive metabolic panel (11/20/2024 5:20 AM CORPORATE COORDINATOR) Sodium 136 135 - 145 mmol/L Potassium, pl 4.1 3.3 - 4.9 mmol/L [facility] ([place]) Chloride 105 97 - 110 mmol/L [facility] ([place]) CO2 22 22 - 32 mmol/L [facility] ([place]) Anion gap 9 2 - 15 mmol/L [facility] ([place]) BUN 69(H) 6 - 25 mg/dL [facility] ([place]) Creatinine 1.27(H) 0.60 - 1.10 mg/dL [facility] ([place]) Glucose 113 70 - 199 mg/dL [facility] ([place]) Comment: Interpretive Data Fasting glucose >/= 126 mg/dl is diagnostic for diabetes. Fasting is defined as no caloric intake for at least 8 hours. Fasting glucose between 100 mg/dl to 125 mg/dl is diagnostic of prediabetes. In a patient with classic symptoms of hyperglycemia or hyperglycemic crisis, a random glucose >/= 200 mg/dl is diagnostic for diabetes. In the absence of unequivocal hyperglycemia, results should be confirmed by repeat testing. The classification and Diagnosis of Diabetes Diabetes Care 2021; 46: S19-S40. Current interpretive data was last revised 2022. Calcium 9.5 8.5 - 10.3 mg/dL [facility] ([facility]) Bilirubin, total 0.4 0.1 - 1.2 mg/dL [facility] ([place]) Protein, pl 5.2(L) 6.5 - 8.5 g/dL [facility] ([place]) Albumin 3.6 3.5 - 5.0 g/dL [facility] ([place]) Alk phos 32(L) 40 - 130 Units/L [facility] ([place]) ALT 16 7 - 45 Units/L [facility] ([place]) AST 24 10 - 45 Units/L [facility] ([facility]) Comment:Slightly Hemolyzed S pecimen Blood 11/20/2024 5:20 AM CORPORATE COORDINATOR 11/20/2024 5:21 AM CORPORATE COORDINATOR us Nicolas Salvador MD LAB BLOOD ORDERABLES Final Result [facility] ([place]) 1 [facility] [place] [address] * Transfuse RBC (11/20/2024 3:12 AM CORPORATE COORDINATOR) Blood Nicolas Salvador MD BLOOD TRANSFUSION ORDERABLE S Final Result [facility] ([place]) 1 [facility] Department [place] [address] * Troponin T high-sensitivity 6-hour (11/20/2024 12:26 AM CORPORATE COORDINATOR) Trop T hs See Comment <=14 Comment: sample short cannot perform test Interpretive Data For further hscTnT resources including the diagnostic algorithm and an aid in interpretation, copy and paste this link: https://nrl.testcatalog.org/show/hsTrop Current Interpretive Data last revised 2020. Trop T hs interp See Comment C [facility] ([place]) Comment:sample short cannot perform test Blood 11/20/2024 12:2 6 AM CORPORATE COORDINATOR 11/20/2024 12:30 AM CORPORATE COORDINATOR Nicolas Salvador MD LAB BLOOD ORDERABLES Final Result [facility] ([place]) 1 [facility] Department [place] [address] * CT Chest PE (CTA) Abdomen Pelvis W Contrast (11/19/2024 10:33 PM CORPORATE COORDINATOR) Anatomical Region Laterality Modality Body N/A Computed Tomogra phy 11/19/2024 11:0 0 PM CORPORATE COORDINATOR Narrative 11/19/2024 11:21 PM CORPORATE COORDINATOR EXAM DESCRIPTION: CT CHEST PE (CTA) ABDOMEN PELVIS W CONTRAST REASON FOR STUDY: on prednisone with hematocrit drop today weak and dizzy on standing and short of breath on short walking she had not noticed that she has become fairly pale. 10 lb weight loss with out effort. TECHNIQUE: CT angiogram of the chest with routine abdomen and pelvis performed with intravenous and without oral contrast using helical scanning technique with dynamic intravenous contrast injection. Reconstructed coronal and sagittal MPR images reviewed. All images stored on PACS. 3D MIP images of the chest rendered on scanning unit and reviewed at time of interpretation. Automated exposure control was used as a dose optimization technique for this examination. CONTRAST TYPE/DOSE: 100mL of IOVERSOL 350 MG IODINE/ML INTRAVENOUS SYRINGE injected via intravenous COMPARISON: None FINDINGS: CHEST CHEST VASCULATURE: No acute pulmonary thromboembolism. LUNGS: No nodules or masses. No pneumonia. PLEURA: No effusion. No pneumothorax. MEDIASTINUM/CHEYANNE: No identified masses or abnormal nodes. Small hiatal hernia. HEART: Heart size is normal with no pericardial effusion. AXILLA: No adenopathy. CHEST WALL: No masses. No subcutaneous air. HARDWARE/LINES/TUBES: None. MUSCULOSKELETAL CHEST: No significant abnormality. ABDOMEN/PELVIS LIVER: Decreased attenuation as seen with fibrofatty changes. GALLBLADDER: No stones identified. No wall thickening or inflammatory changes. BILE DUCTS: No intrahepatic or extrahepatic ductal dilatation. SPLEEN: Normal size. No focal lesions. Calcified granulomas. PANCREAS: No identified cystic or solid masses. No significant calcifications. No adjacent inflammation or peripancreatic fluid collections. Pancreatic duct not dilated. ADRENALS: Normal. KIDNEYS/URINARY TRACT: No identified significant cystic or solid masses. No visualized stones. No hydronephrosis or hydroureter. Symmetric enhancement. Urinary bladder is unremarkable. GI: No dilated bowel loops. No obvious wall thickening. Normal appendix. Scattered diverticular disease without diverticulitis. PERITONEUM: No ascites or free air. RETROPERITONEUM: No mass or adenopathy. REPRODUCTIVE: No significant abnormality. 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 No concerning lesions are present. Right hip arthroplasty with resulting artifact. OTHER: No significant abnormality. IMPRESSION: No evidence of pulmonary embolus. Small hiatal hernia. Hepatic steatosis. Diverticulosis without diverticulitis. THIS IS AN ELECTRONICALLY VERIFIED FINAL REPORT 11/19/2024 11:21 PM - Electronically signed by Adriano Maradiaga M.D. KT: KT Report ID: [id number] Reading Location: [id number] Procedure Note Adriano Maradiaga MD - 11/19/2024 EXAM DESCRIPTION: CT CHEST PE (CTA) ABDOMEN PELVIS W CONTRAST REASON FOR STUDY: on prednisone with hematocrit drop today weak and dizzy on standing and short of breath on short walking she hadnot noticed that she has become fairly pale. 10 lb weight loss with outeffort. TECHNIQUE: CT angiogram of the chest with routine abdomen and pelvisperformed with intravenous and without oral contrast using helical scanningtechnique with dynamic intravenous contrast injection. Reconstructed coronal and sagittal MPR images reviewed. All images stored on PACS. 3D MIP images ofthe chest rendered on scanning unit and reviewed at time of interpretation. Automated exposure control was used as a dose optimization technique forthis examination. CONTRAST TYPE/DOSE: 100mL of IOVERSOL 350 MG IODINE/ML INTRAVENOUS SYRINGE injected via intravenous COMPARISON: None FINDINGS: CHEST CHEST VASCULATURE: No acute pulmonary thromboembolism. LUNGS: No nodules or masses. No pneumonia. PLEURA: No effusion. No pneumothorax. MEDIASTINUM/CHEYANNE: No identified masses or abnormal nodes. Small hiatal hernia. HEART: Heart size is normal with no pericardial effusion. AXILLA: No adenopathy. CHEST WALL: No masses. No subcutaneous air. HARDWARE/LINES/TUBES: None. MUSCULOSKELETAL CHEST: No significant abnormality. ABDOMEN/PELVIS LIVER: Decreased attenuation as seen with fibrofatty changes. GALLBLADDER: No stones identified. No wall thickening or inflammatory changes. BILE DUCTS: No intrahepatic or extrahepatic ductal dilatation. SPLEEN: Normal size. No focal lesions. Calcified granulomas. PANCREAS: No identified cystic or solid masses. No significant calcifications. No adjacent inflammation or peripancreatic fluidcollections. Pancreatic duct not dilated. ADRENALS: Normal. KIDNEYS/URINARY TRACT: No identified significant cystic or solid masses.No visualized stones. No hydronephrosis or hydroureter. Symmetricenhancement. Urinary bladder is unremarkable. GI: No dilated bowel loops. No obvious wall thickening. Normal appendix. Scattered diverticular disease without diverticulitis. PERITONEUM: No ascites or free air. RETROPERITONEUM: No mass or adenopathy. REPRODUCTIVE: No significant abnormality. 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 No concerning lesions are present. Right hiparthroplasty with resulting artifact. OTHER: No significant abnormality. IMPRESSION: No evidence of pulmonary embolus. Small hiatal hernia. Hepatic steatosis. Diverticulosis without diverticulitis. THIS IS AN ELECTRONICALLY VERIFIED FINAL REPORT 11/19/2024 11:21 PM - Electronically signed by Adriano Maradiaga M.D. KT: EVELIN Report ID: [id number] Reading Location: [place] [address] us Nicolas Salvador MD IMG CT PROCEDURES Final Res ult * Prepare RBC: 1 Units (11/19/2024 10:18 PM CORPORATE COORDINATOR) Units requested 1 Units requested Ready [facility] Unit Number [id number] Product code [id number] [facility] Blood Expiration Date [id number] [facility] Product Blood Type (for scanning) 6200 [facility] Product Blood Type APOS [facility] Dispense Status DISPENSED [facility]) Blood 11/19/2024 10:1 8 PM CORPORATE COORDINATOR 11/19/2024 10:18 PM CORPORATE COORDINATOR Nicolas Salvador MD BLOOD BANK PRODUCT ORDERABL ES Final Result Performing Organization Address [facility]/ZIP Co de Phone Number [facility] ([facility]) 1 [facility] [employer] [place] [address] * Thyroid Function Bates (11/19/2024 9:17 PM CORPORATE COORDINATOR) TSH 2.37 0.30 - 4.20 mcIUnit/mL Blood 11/19/2024 9:17 PM CORPORATE COORDINATOR 11/19/2024 9:24 PM CORPORATE COORDINATOR Nicolas Salvador MD LAB BLOOD ORDERABLES Final Result Performing Organization Address [facility]/State/ZIP Co de Phone Number [facility] ([facility]) 1 [facility] [employer] [place] [address] * Iron profile w/ IBC (11/19/2024 9:17 PM CORPORATE COORDINATOR) Iron 70 35 - 145 mcg/dL TIBC 275 250 - 400 mcg/dL [facility]) Transferrin saturation 25 20 - 50 % [facility]) Blood 11/19/2024 9:17 PM CORPORATE COORDINATOR 11/19/2024 9:24 PM CORPORATE COORDINATOR Nicolas Salvador MD LAB BLOOD ORDERABLES Final Result Performing Organization Address City/[facility]/ZIP Co de Phone Number [facility] ([place]) 1 [facility] [employer] [place] [address] * ABO/Rh (11/19/2024 9:17 PM CORPORATE COORDINATOR) ABO/Rh A Positive Blood 11/19/2024 9:17 PM CORPORATE COORDINATOR 11/19/2024 9:24 PM CORPORATE COORDINATOR Narrative [facility] - 11/19/2024 9:53 PM CORPORATE COORDINATOR Has the patient had Daratumumab or Isatuximab in the past 6 months?->Unknown Nicolas Salvador MD LAB BLOOD BANK TEST ORDERAB LES Final Result Performing Organization Address [facility] Co de Phone Number [facility] ([place]) 1 [facility] [employer] [place] [address] * Crossmatch (11/19/2024 9:17 PM CORPORATE COORDINATOR) Crossmatch Compatible [facility] ([place]) Unit number for crossmatch [id number] [facility] ([place]) Blood 11/19/2024 9:17 PM CORPORATE COORDINATOR 11/19/2024 9:24 PM CORPORATE COORDINATOR Nicolas Salvador MD LAB BLOOD BANK TEST ORDERAB LES Final Result Performing Organization Address [facility] Co de Phone Number [facility] ([place] 1 [facility] [employer] [place] [address] * Antibody screen (11/19/2024 9:17 PM CORPORATE COORDINATOR) Donna, indirect, Gel Interpretation Negative ABSC Blood 11/19/2024 9:17 PM CORPORATE COORDINATOR 11/19/2024 9:24 PM CORPORATE COORDINATOR Narrative [facility] ([facility]) - 11/19/2024 10:09 PM CORPORATE COORDINATOR Has the patient had Daratumumab or Isatuximab in the past 6 months?->Unknown Nicolas Salvador MD LAB BLOOD BANK TEST ORDERAB LES Final Result Performing Organization Address City/[facility]/ZIP Co de Phone Number [facility] ([place]) 1 [facility] [employer] [place] [address] * (ABNORMAL) Troponin T high-sensitivity 2-hour (11/19/2024 8:29 PM CORPORATE COORDINATOR) Trop T hs 28(H) <=14 ng/L Comment: Interpretive Data For further hscTnT resources including the diagnostic algorithm and an aid in interpretation, copy and paste this link: https://nrl.testcatalog.org/show/hsTrop Current Interpretive Data last revised 2020. Trop T hs delta 3 ng/L [facility] ([place]) Trop T hs interp Insignificant [facility] ([place]) Blood 11/19/2024 8:29 PM CORPORATE COORDINATOR 11/19/2024 8:36 PM CORPORATE COORDINATOR Nicolas Salvador MD LAB BLOOD ORDERABLES Final Result Performing Organization Address City/[facility]/ZIP Co de Phone Number [facility] ([place]) 1 [facility] [employer] [place] [address] * CT Cervical Spine WO Contrast (11/19/2024 8:25 PM CORPORATE COORDINATOR) Anatomical Region Laterality Modality Spine N/A Computed Tomogra phy 11/19/2024 9:10 PM CORPORATE COORDINATOR Narrative 11/19/2024 9:16 PM CORPORATE COORDINATOR EXAM DESCRIPTION: CT CERVICAL SPINE WO CONTRAST REASON FOR STUDY: Neck pain, acute, no red flags Elevated blood pressure, fall, she did hit her head on thinners. TECHNIQUE: Axial images through the cervical spine with sagittal and coronal reformatted images. Automated exposure control was used as a dose optimization technique for this examination. COMPARISON: None FINDINGS: ALIGNMENT: There is 2 mm anterolisthesis C4 on C5 and 2 mm retrolisthesis C5 on C6 which is likely due to facet arthropathy. The remainder of the posterior vertebral body line is intact. There is straightening of the cervical spine with loss of the normal lordotic curve. VERTEBRAE: No fracture. Vertebral body heights well-maintained. DISCS: Moderate disc space narrowing at C3-4 and C5-6 with mild narrowing at C4-5. Marginal osteophytes C3 through C7. Degenerative change involving the articular facets. Degenerative cyst formation involving C2 including the left base of the dens. HARDWARE: None in the spine. INDIVIDUAL DISC LEVELS: No significant osseous spinal canal or neural foraminal stenosis. UPPER THORACIC: Incompletely imaged. No significant osseous spinal stenosis or osseous neural foraminal stenosis. SKULL BASE: No significant finding. LUNG APICES: No significant abnormality. NECK SOFT TISSUES: Bilateral carotid atherosclerotic calcification. OTHER: No other significant findings. IMPRESSION: Multilevel degenerative change in the cervical spine. No CT evidence of cervical spine fracture. THIS IS AN ELECTRONICALLY VERIFIED FINAL REPORT 11/19/2024 9:16 PM - Electronically signed by Adriano Maradiaga M.D. KT: EVELIN Report ID: [id number] Reading Location: [id number] Procedure Note Adriano Maradiaga MD - 11/19/2024 EXAM DESCRIPTION: CT CERVICAL SPINE WO CONTRAST REASON FOR STUDY: Neck pain, acute, no red flags Elevated blood pressure, fall, she did hit her head on thinners. TECHNIQUE: Axial images through the cervical spine with sagittal andcoronal reformatted images. Automated exposure control was used as a doseoptimization technique for this examination. COMPARISON: None FINDINGS: ALIGNMENT: There is 2 mm anterolisthesis C4 on C5 and 2 mmretrolisthesis C5 on C6 which is likely due to facet arthropathy. The remainder of the posterior vertebral body line is intact. There is straightening of the cervical spine with loss of the normal lordotic curve. VERTEBRAE: No fracture. Vertebral body heights well-maintained. DISCS: Moderate disc space narrowing at C3-4 and C5-6 with mildnarrowing at C4-5. Marginal osteophytes C3 through C7. Degenerative change involvingthe articular facets. Degenerative cyst formation involving C2 including theleft base of the dens. HARDWARE: None in the spine. INDIVIDUAL DISC LEVELS: No significant osseous spinal canal or neural foraminal stenosis. UPPER THORACIC: Incompletely imaged. No significant osseous spinalstenosis or osseous neural foraminal stenosis. SKULL BASE: No significant finding. LUNG APICES: No significant abnormality. NECK SOFT TISSUES: Bilateral carotid atherosclerotic calcification. OTHER: No other significant findings. IMPRESSION: Multilevel degenerative change in the cervical spine. No CT evidence of cervical spine fracture. THIS IS AN ELECTRONICALLY VERIFIED FINAL REPORT 11/19/2024 9:16 PM - Electronically signed by Adriano Maradiaga M.D. KT: EVELIN Report ID: [id number] Reading Location: [id number] Nav Arnold MD IMG CT PROCEDURES Final Result * CT Head WO Contrast (11/19/2024 8:25 PM CORPORATE COORDINATOR) Anatomical Region Laterality Modality Head and Neck N/A Computed Tomogra phy 11/19/2024 9:16 PM CORPORATE COORDINATOR Narrative 11/19/2024 9:21 PM CORPORATE COORDINATOR EXAM DESCRIPTION: CT HEAD WO CONTRAST REASON FOR STUDY: Syncope/presyncope, cerebrovascular cause suspected Elevated blood pressure, fall, she did hit her head on thinners. TECHNIQUE: Axial images acquired through the brain without intravenous contrast. Images stored on PACS. Automated exposure control was used as a dose optimization technique for this examination. COMPARISON: None FINDINGS: BRAIN: No hemorrhage, edema or mass effect. No recent infarct. Mild periventricular microvascular white matter ischemic change. EXTRA-AXIAL SPACES: No fluid collections. No masses. CALVARIUM: No fracture. SINUSES/MASTOIDS: No fluid or mucosal thickening. ORBITS: No significant abnormality. OTHER: No other significant abnormality. IMPRESSION: No acute intracranial findings. THIS IS AN ELECTRONICALLY VERIFIED FINAL REPORT 11/19/2024 9:21 PM - Electronically signed by Adriano Maradiaga M.D. KT: EVELIN Report ID: [id number] Reading Location: [id number] Procedure Note Adriano Maradiaga MD - 11/19/2024 EXAM DESCRIPTION: CT HEAD WO CONTRAST REASON FOR STUDY: Syncope/presyncope, cerebrovascular cause suspected Elevated blood pressure, fall, she did hit her head on thinners. TECHNIQUE: Axial images acquired through the brain without intravenous contrast. Images stored on PACS. Automated exposure control was used asa dose optimization technique for this examination. COMPARISON: None FINDINGS: BRAIN: No hemorrhage, edema or mass effect. No recent infarct. Mild periventricular microvascular white matter ischemic change. EXTRA-AXIAL SPACES: No fluid collections. No masses. CALVARIUM: No fracture. SINUSES/MASTOIDS: No fluid or mucosal thickening. ORBITS: No significant abnormality. OTHER: No other significant abnormality. IMPRESSION: No acute intracranial findings. THIS IS AN ELECTRONICALLY VERIFIED FINAL REPORT 11/19/2024 9:21 PM - Electronically signed by Adriano Maradiaga M.D. KT: EVELIN Report ID: [id number] Reading Location: [place] [address] Nav Arnold MD IMG CT PROCEDURES Final Result * ECG 12 lead (11/19/2024 5:54 PM CORPORATE COORDINATOR) 11/19/2024 5:54 PM CORPORATE COORDINATOR Narrative [facility] - 11/20/2024 7:04 AM CORPORATE COORDINATOR Vent Rate: 110 bpm RR Interval: 542 msec MN Interval: 158 msec QRS Duration: 80 msec QT Interval: 307 msec QTC Interval: 372 msec P-R-T Hackett: 82 - 91 - 61 degrees IMPRESSION: SINUS TACHYCARDIA BORDERLINE RIGHT AXIS DEVIATION [QRS AXIS > 90] ABNORMAL RHYTHM ECG NO CHANGE FROM PREVIOUS TRACING NOTED Electronically Signed By: Terrell Campbell MD us Nicolas Salvador MD ECG ORDERABLES Final Resul t [facility] * (ABNORMAL) Troponin T high-sensitivity series (baseline, 2hr, 4hr, 6hr) (11/19/2024 5:51 PM CORPORATE COORDINATOR) Trop T hs 25(H) <=14 ng/L Comment: Interpretive Data For further hscTnT resources including the diagnostic algorithm and an aid in interpretation, copy and paste this link: https://nrl.testcatalog.org/show/hsTrop Current Interpretive Data last revised 2020. Blood 11/19/2024 5:51 PM CORPORATE COORDINATOR 11/19/2024 6:00 PM CORPORATE COORDINATOR Nicolas Salvador MD LAB BLOOD ORDERABLES Final Result Performing Organization Address City/[facility]/ZIP Co de Phone Number [facility] ([place]) 1 [facility] [employer] [place] [address] * (ABNORMAL) eGFR (11/19/2024 5:51 PM CORPORATE COORDINATOR) eGFR 40(L) >=60 mL/min/1. 73 m2 Comment: Interpretive Data Reference Interval Normal >/= 90 mL/min/1.73m2 Mildly decreased* 60 - 89 mL/min/1.73m2 Mildly to moderately decreased 45 - 59 mL/min/1.73m2 Moderately to severely decreased 30 - 44 mL/min/1.73m2 Severely decreased 15 - 29 mL/min/1.73m2 Kidney Failure < 15 mL/min/1.73m2 *Relative to young adult level Estimated glomerular filtration rate is determined by the 2020 CKD-EPI equation recommended by the National Kidney Foundation (A Unifying Approach to GFR Estimation: Recommendations of the NKF-ASK Task Force on Reassessing the Inclusion of Race in Diagnosing Kidney Disease, JASN 202). The CKD-EPI equation should not be used for patients with unstable renal function and has not been validated in children and those over 70. Current interpretive data was last reviewed 2021. Blood 11/19/2024 5:51 PM CORPORATE COORDINATOR 11/19/2024 6:00 PM CORPORATE COORDINATOR Nicolas Salvador MD LAB BLOOD ORDERABLES Final Result [facility] ([facility]) 1 [facility] [employer] [place] [address] * (ABNORMAL) Differential, auto (11/19/2024 5:51 PM CORPORATE COORDINATOR) Neutrophil abs 10.0(H) 1.5 - 6.5 K/cumm Imm gran abs 0.1 0.0 - 0.1 K/cumm [facility] ([facility]) Lymphocyte abs 1.5 0.8 - 3.3 K/cumm [facility] ([place]) Monocyte abs 1.2(H) 0.2 - 0.8 K/cumm [facility] ([place]) Eosinophil abs 0.0 0.0 - 0.5 K/cumm [facility] ([place]) Basophil abs 0.0 0.0 - 0.1 K/cumm [facility] ([place]) Neutrophil pct 78.0 % [facility] ([place]) Comment: Interpretive Data Percent cell count reference ranges are not reported, since discordance with absolute values may lead to misinterpretation of CBC data. Current Interpretive Data was last revised on 2018. Imm gran pct 0.6 % [facility] ([place]) Comment: Interpretive Data Percent cell count reference ranges are not reported, since discordance with absolute values may lead to misinterpretation of CBC data. Current Interpretive Data was last revised on 2018. Lymphocyte pct 11.9 % [facility] ([place]) Comment: Interpretive Data Percent cell count reference ranges are not reported, since discordance with absolute values may lead to misinterpretation of CBC data. Current Interpretive Data was last revised on 2018. Monocyte pct 9.2 % [facility] ([place]) Comment: Interpretive Data Percent cell count reference ranges are not reported, since discordance with absolute values may lead to misinterpretation of CBC data. Current Interpretive Data was last revised on 2018. Eosinophil pct 0.1 % [facility] ([place]) Comment: Interpretive Data Percent cell count reference ranges are not reported, since discordance with absolute values may lead to misinterpretation of CBC data. Current Interpretive Data was last revised on 2018. Basophil pct 0.2 % [facility] ([place]) Comment: Interpretive Data Percent cell count reference ranges are not reported, since discordance with absolute values may lead to misinterpretation of CBC data. Current Interpretive Data was last revised on 2018. Blood 11/19/2024 5:51 PM CORPORATE COORDINATOR 11/19/2024 6:00 PM CORPORATE COORDINATOR Nicolas Salvador MD LAB BLOOD ORDERABLES Final Result [facility] ([place] 1 [facility] [employer] [place] [address] * ABO / Rh Confirmation Testing (11/19/2024 5:51 PM CORPORATE COORDINATOR) Pathologist [facility] ABO/Rh Confirmation A Positive [facility] Blood 11/19/2024 5:51 PM CORPORATE COORDINATOR 11/19/2024 9:31 PM CORPORATE COORDINATOR Nicolas Salvador MD LAB BLOOD ORDERABLES Final Result Performing Organization Address [facility] de Phone Number [facility] ([place]) 1 [facility] [place] [address] [facility] * (ABNORMAL) CBC with auto differential (11/19/2024 5:51 PM CORPORATE COORDINATOR) Pathologist [facility] WBC 12.8(H) 3.8 - 9.9 K/cumm Hgb 8.1(L) 11.9 - 15.5 g/dL [facility] ([facility]) Hct 23.8(L) 35.6 - 45.5 % [facility]) Plt 247 150 - 400 K/cumm [facility] ([place]) MPV 11.7 9.1 - 12.3 fL [facility] RBC 2.41(L) 3.90 - 5.20 M/cumm [facility] ([place]) MCV 98.8(H) 81.3 - 96.4 fL [facility]) MCH 33.6(H) 27.1 - 33.3 pg [facility] ([place]) MCHC 34.0 32.3 - 35.7 g/dL [facility]) RDW CV 12.0 11.1 - 14.9 % [facility] RDW SD 43.4 35.7 - 48.1 fL [facility]) NRBC abs 0.00 0.00 - 0.01 K/cumm [facility] ([place]) Blood 11/19/2024 5:51 PM CORPORATE COORDINATOR 11/19/2024 6:00 PM CORPORATE COORDINATOR us Nicolas Salvador MD LAB BLOOD ORDERABLES Final Result [facility] ([place]) 1 [facility] Department [place] [address] * (ABNORMAL) Comprehensive metabolic panel (11/19/2024 5:51 PM CORPORATE COORDINATOR) Sodium 133(L) 135 - 145 mmol/L Potassium, pl 5.3(H) 3.3 - 4.9 mmol/L [facility] ([place]) Chloride 95(L) 97 - 110 mmol/L [facility]) CO2 21(L) 22 - 32 mmol/L [facility] ([place]) Anion gap 16(H) 2 - 15 mmol/L [facility] ([place]) BUN 79(H) 6 - 25 mg/dL [facility] ([place]) Creatinine 1.34(H) 0.60 - 1.10 mg/dL [facility] ([place]) Glucose 131 70 - 199 mg/dL [facility] ([place]) Comment: Interpretive Data Fasting glucose >/= 126 mg/dl is diagnostic for diabetes. Fasting is defined as no caloric intake for at least 8 hours. Fasting glucose between 100 mg/dl to 125 mg/dl is diagnostic of prediabetes. In a patient with classic symptoms of hyperglycemia or hyperglycemic crisis, a random glucose >/= 200 mg/dl is diagnostic for diabetes. In the absence of unequivocal hyperglycemia, results should be confirmed by repeat testing. The classification and Diagnosis of Diabetes Diabetes Care 202; 46: S19-S40. Current interpretive data was last revised 2022. Calcium 10.7(H) 8.5 - 10.3 mg/dL [facility] ([facility]) Bilirubin, total <0.2 0.1 - 1.2 mg/dL [facility] ([place]) Protein, pl 6.3(L) 6.5 - 8.5 g/dL [facility] ([place]) Albumin 4.2 3.5 - 5.0 g/dL [facility] ([facility]) Alk phos 35(L) 40 - 130 Units/L [facility] ([facility]) ALT 19 7 - 45 Units/L [facility] ([facility]) AST 26 10 - 45 Units/L [facility] ([place]) Comment: Hemolysis present. Results may be affected. Slightly Hemolyzed Specimen Blood 11/19/2024 5:51 PM CORPORATE COORDINATOR 11/19/2024 6:00 PM CORPORATE COORDINATOR Nicolas Salvador MD LAB BLOOD ORDERABLES Final Result [facility] ([place] 1 [facility] Department of Laboratories [place], [place] [id number] * Dexa Axial Skeleton Bone Density 1 or 2 Site (06/10/2020) SCRIBED DXA T-SCORE 1.6 SCRIBED DXA Z-SCORE 4.2 SCRIBED DXA BMD -0.100 Anatomical Region Laterality Modality Body N/A Radiographic Goldie ging Historical Provider IMG DXA PROCEDURES Final Result from Last 3 Months or Most Recently Relevant to Health Maintenance Insurance PENDING SALE TO [employer] PENDING SALE TO [facility] Address: [facility] [id number] [place] [phone] PENDING SALE TO [employer] Advance Directives For more information, please contact: [phone] * Full Code (Latest Code Status on File) Date Activated Date Inactivated Comments 11/21/2024 12:57 PM 11/22/2024 5:57 PM * Full Code Date Activated Date Inactivated Comments 11/20/2024 6:37 AM 11/21/2024 12:57 PM * Full Code Date Activated Date Inactivated Comments 02/03/2022 12:59 PM 02/04/2022 6:19 PM Care Teams Clinical Medical Assistant Relationship Specialty Start Date End Date Kevyn Cortés MD PCP - General 12/31/16 Luis E Ko MD Surgeon Orthopedic Surgery 02/04/22
--- OUTSIDE RECORDS SUMMARY | 2024-11-23 00:41 | XMS_ITS | Referral Summary ---
Author Organization [facility] Healthcare Address [address] [place] [address] Care Team Providers Care Street And Building Decorator Name Role Phone Kevyn Cortés MD Primary Care Provider Luis E Ko MD Unavailable [phone] Encounters Date Type Department Care Team Description 5 8:05 PM [facility] - 5 1:57 PM [facility] Hospital Encounter [facility] Surgery Care [address] [place] [id number] Jose Francisco Cochran MD Kim, Eileen H., MD Davis, Lele Sheikh II, MD Acute upper GI bleed (Primary Dx); Weight loss, non-intentional; Acute blood loss anemia Discharge Disposition: Discharge to home or self care 5 1:58 PM [facility] Anesthesia Event [address] [address] Prateek Blood MD Reynolds, Ethan Emerson, MD 5 1:00 PM [facility] - 5 1:40 PM [facility] Surgery [address] [address] Fco Vivar MD ESOPHAGOGASTRODUODENOSCOPY INJECTION SUBMUCOSAL 5 4:15 PM [facility] Office Visit [facility] Formerly [facility] Care at [address] [phone] Holli Cardenas NP Dizziness (Primary Dx); Hypotension, unspecified hypotension type; Shortness of breath; Accidental fall, initial encounter 5 Telephone [facility] Primary [facility] at [facility] [address] [place] [address] [place] [phone] Kevyn Cortés MD Symptom Based Call 5 Nurse Triage [facility] at [facility] [address] [place] [address] [place] [phone] Kevyn Cortés MD 5 Telephone [facility] Primary Care at [address] [place] [phone] Kevyn Cortés MD 5 2:15 PM [facility] Office Visit [facility] Care at [address] [phone] Holli Cardenas NP Contact dermatitis, unspecified contact dermatitis type, unspecified trigger (Primary Dx) from Last 3 Months Allergies No known active allergies Medications fexofenadine [...] MG) BY MOUTH DAILY 90 tablet 1 4 Active chlorthalidone (HYGROTON) 25 mg tablet [...] Arthritis of right hip 01/19/2021 Overview (01/19/2022): - XR: severe DJD 01/22: Upcoming surgery - [...] zetia Assessment & Plan (11/26/2019 11:13 AM [facility]): Continue with zetia. Medicare annual wellness visit, [...] bilaterally 10-22 carotid doppler: bilaterall 50-70% stenosis 10-23 carotid doppler: <50 right, 50-70% on left [...] week. Assessment & Plan (12/01/2020 1:27 PM [facility]): The pre-diabetes is acceptably controlled. The hemoglobin [...] diagnosis of diabetes in children. According to [employer] (ADA) guidelines, hemoglobin A1c <7.0% [...] worse. Assessment & Plan (11/26/2019 11:38 AM [facility]): The pre-diabetes is now normal. The hemoglobin [...] worse. Assessment & Plan (11/13/2018 11:06 AM [facility]): The pre-diabetes is doing great. The hemoglobin [...] week. Assessment & Plan (10/26/2017 11:55 AM [facility]): The diabetes seems to be under good [...] state 09/27/2006 Overview (08/09/2018): ANXIETY STATE NOS Sxondb-sd-[id number] had a stroke in July Recently BP has been hard to control and she has been feeling anxious - near panic attack last night Assessment & Plan (06/21/2024 11:21 AM CDT): Continue paroxetine. Assessment & Plan (06/16/2022 11:27 AM CDT): Continue paroxetine. Assessment & Plan (08/09/2018 2:00 PM [facility]): Increase the paxil to a full pill [...] today. Assessment & Plan (2021 11:52 AM [facility]): To continue to efforts at getting 4-5 [...] ezetimide. Assessment & Plan (11/26/2019 11:14 AM [facility]): Continue with zetia. Assessment & Plan (05/21/2019 10:00 AM CDT): Intolerant of statins. Continue with zetia. Assessment & Plan (11/13/2018 11:11 AM [facility]): Willing to try pitavistatin. Assessment & Plan (05/09/2018 11:15 AM CDT): To continue to efforts at getting 4-5 servings of fruits and/or vegetables a day. A fasting lipid profile will be checked today. Assessment & Plan (10/26/2017 11:57 AM [facility]): To continue to efforts at getting 4-5 [...] week. Assessment & Plan (2021 11:51 AM [facility]): The blood pressure is adequately controlled. Ideally, [...] week. Assessment & Plan (11/26/2019 11:13 AM [facility]): The blood pressure is adequately controlled. Ideally, [...] week. Assessment & Plan (11/13/2018 11:02 AM [facility]): The blood pressure is adequately controlled. Ideally, I want it below 130/80. Will continue with the same medications as prescribed. Salt intake needs to be restricted to keep the sodium level at less than 2000 mg a day. Regular exercise is also important and should be at least four days a week. Assessment & Plan (08/09/2018 2:05 PM [facility]): With standing the BP drops into the [...] week Assessment & Plan (10/26/2017 11:55 AM [facility]): The blood pressure is adequately controlled. Ideally, [...] normal Reviewed report from EKG done at [facility] - normal sinus rhythm Based on her visit here last week and the above mentioned test I believe she would be of average risk for her age in terms of her upcoming hip replacement surgery. Will complete and fax the requested form to her surgeon. Claudication 05/21/2019 11/26/2019 Overview (11/26/2019): 8 Send for arterial dopplers. Likely early claudication. 8 LE US: neg for PAD Impaired fasting glucose 04/06/2016 Overview (01/07/2017): IFG Immunizations Immunization Administration Dates Next Due Influenza, Quadrivalent, Hig h Dose, Preservative Free, Intrr 06/17/2023,06/16/2022 Influenza, Split 09/03/2013, 2,07/15/2011,09/04 Influenza, Trivalent, High D ose, Split, Preservative Free, Intramuscular 06/21/2024,07/02/2016,07/29/2015 Influenza, Trivalent, IM (MDV) 09/03/2013 Influenza, Trivalent, Preser vative Free, Intramuscular 09/18/2014 Influenza, Unspecified 07/03/2020,2018,07/03/2018,07/09 Pneumococcal Conjugate PCV 13 01/29/2015 Pneumococcal Polysaccharide PPV23 10/22/2011,10/2005 Tdap 12/07/2013 ZOSTER LIVE 05/03/2014 Social History Tobacco Use Types Packs/Day Years [...] on file Legal Sex Female 5:02 PM [facility] Gender Identity Female 11/24/2020 9:38 AM [facility] Sexual Orientation Not on file Last Filed Vital Signs Vital Sign Reading Time Taken Comments Blood Pressure 137/67 11/22/2024 11:32 AM [facility] Pulse 72 11/22/2024 11:32 AM [facility] Temperature 36.3 C (97.4 F) 11/22/2024 11:32 AM [facility] Respiratory Rate 18 11/22/2024 11:32 AM [facility] Oxygen Saturation 100% 11/22/2024 11:32 AM [facility] Inhaled Oxygen Concentration - - Weight 50 kg (110 lb 3.7 oz) 11/20/2024 10:39 AM [facility] Height 157.5 cm (5' 2 ) 11/20/2024 10:39 AM [facility] Body Mass Index 20.16 11/20/2024 10:39 AM [facility] Plan of Treatment Not on file Medical Devices Implanted Type Area Payroll Bookkeeper Device Identifier Shelf Expiration Date Model / Serial / Lot [employer] [id number] Flag Pond 50mm Sector Hip Shell Acetabular Gription Sterile Latex Free - [id number] Implanted:Qty: 1 on 02/03/2022 by Luis E Ko MD at [facility] Right: Hip [employer] 08/02/2031 [id number] / / [id number] [employer] Flag Pond 6.5mm 25mm Acetabular Cancellous Screw Bone Sterile 1217-25-500 - [id number] Implanted:Qty: 1 on 02/03/2022 by Luis E Ko MD at [facility] Right: Hip [employer] 12/01/2031 1217-25-500 / / [id number] [employer] [id number] Flag Pond 50mm 32mm Hip Neutral Liner Acetabular Altrx Sterile Latex Free - [id number] Implanted:Qty: 1 on 02/03/2022 by Luis E Ko MD at [facility] Right: Hip [employer] 04/01/2026 [id number] / / [id number] [employer] [id number] Stem 1 High Offset Femoral Actis Hip Collar - [id number] Implanted:Qty: 1 on 02/03/2022 by Luis E Ko MD at [facility] Right: Hip [employer] 12/31/2030 [id number] / / [id number] [employer] [id number] Articul/Bert 32mm Hip +9mm 12/14 Taper Head Femoral Biolox Delta Latex Free - [id number] Implanted:Qty: 1 on 02/03/2022 by Luis E Ko MD at [facility] Right: Hip [employer] 03/02/2026 [id number] / / [id number] Procedures Procedure Name Priority Date/Time Associated Diagnosis Comments HEMOGLOBIN AND HEMATOCRIT Timed 2024 12:17 PM [facility] POCT GLUCOSE DEVICE Routine 11/22/2024 11:36 AM [facility] POCT GLUCOSE DEVICE Routine 11/22/2024 7:20 AM [facility] EGFR Routine 11/22/2024 5:49 AM [facility] DIFFERENTIAL AUTO Routine 11/22/2024 5:49 AM [facility] HEMOGLOBIN AND HEMATOCRIT Timed 2024 5:49 AM [facility] PHOSPHORUS Routine 11/22/2024 5:49 AM [facility] MAGNESIUM Routine 11/22/2024 5:49 AM [facility] COMPREHENSIVE METABOLIC PANEL Routine 5:49 AM [facility] CBC WITH AUTO DIFFERENTIAL Routine 11/22 5:49 AM [facility] HEMOGLOBIN AND HEMATOCRIT Timed 2024 12:10 AM [facility] POCT GLUCOSE DEVICE Routine 11/21/2024 8:25 PM [facility] HEMOGLOBIN AND HEMATOCRIT Timed 2024 6:36 PM [facility] POCT GLUCOSE DEVICE Routine 11/21/2024 4:31 PM [facility] EGD 11/21/2024 1:52 PM [facility] ENDO ADD ON ESOPHAGOGASTRODUODENOSCOPY REMOVAL HOT BIOPSY 11/21/2024 1:50 PM [facility] Acute upper GI bleed ESOPHAGOGASTRODUODENOSCOPY INJECTION SUBMUCOSAL 11/21/2024 1:50 PM [facility] Acute upper GI bleed HEMOGLOBIN AND HEMATOCRIT Timed 2024 11:59 AM [facility] POCT GLUCOSE DEVICE Routine 11/21/2024 11:20 AM [facility] POCT GLUCOSE DEVICE Routine 11/21/2024 7:49 AM [facility] EGFR Routine 11/21/2024 5:40 AM [facility] DIFFERENTIAL AUTO Routine 11/21/2024 5:40 AM [facility] PHOSPHORUS Routine 11/21/2024 5:40 AM [facility] MAGNESIUM Routine 11/21/2024 5:40 AM [facility] COMPREHENSIVE METABOLIC PANEL Routine 5:40 AM [facility] CBC WITH AUTO DIFFERENTIAL Routine 11/21 5:40 AM [facility] POCT GLUCOSE DEVICE Routine 11/21/2024 2:10 AM [facility] HEMOGLOBIN AND HEMATOCRIT Timed 2024 12:07 AM [facility] POCT GLUCOSE DEVICE Routine 11/20/2024 8:30 PM [facility] HEMOGLOBIN AND HEMATOCRIT Timed 2024 5:33 PM [facility] POCT GLUCOSE DEVICE Routine 11/20/2024 4:32 PM [facility] HEMOGLOBIN AND HEMATOCRIT Timed 2024 12:05 PM [facility] POCT GLUCOSE DEVICE Routine 11/20/2024 11:32 AM [facility] POCT GLUCOSE DEVICE Routine 11/20/2024 7:37 AM [facility] MANUAL DIFFERENTIAL STAT 11/20/2024 5:20 AM [facility] EGFR STAT 11/20/2024 5:20 AM [facility] DIFFERENTIAL AUTO STAT 11/20/2024 5:20 AM [facility] COMPREHENSIVE METABOLIC PANEL STAT 5:20 AM [facility] CBC WITH AUTO DIFFERENTIAL STAT 11/20 5:20 AM [facility] TROPONIN T HIGH-SENSITIVITY 6-HOUR Timed 11/20/2024 12:26 AM [facility] TRANSFUSE RED BLOOD CELLS Timed 2024 10:41 [address] [facility] [address] CHEST PE ABDOMEN PELVIS W CONTRAST ED 11/19/2024 10:33 PM [facility] PREPARE RBC Timed 11/19/2024 10:18 PM [facility] CROSSMATCH Timed 11/19/2024 9:17 PM [facility] ANTIBODY SCREEN Timed 11/19/2024 9:17 PM [facility] ABO/RH Timed 11/19/2024 9:17 PM [facility] THYROID FUNCTION CASCADE Add-On 025 9:17 PM [facility] IRON PROFILE W/ IBC STAT 11/19/2024 9:17 PM [facility] TYPE AND SCREEN Timed 11/19/2024 9:17 PM [facility] TROPONIN T HIGH-SENSITIVITY 2-HOUR Timed 11/19/2024 8:29 [address] [facility] CT CERVICAL SPINE WO CONTRAST ED 8:25 PM [facility] CT HEAD WO CONTRAST ED 11/19/2024 8:25 PM [facility] ECG 12-LEAD STAT 11/19/2024 5:54 PM [facility] B ABO / RH CONFIRMATION TESTING STAT 11/19/2024 5:51 PM [facility] EGFR STAT 11/19/2024 5:51 PM [facility] DIFFERENTIAL AUTO STAT 11/19/2024 5:51 PM [facility] TROPONIN T HIGH-SENSITIVITY SERIES (BASELINE, 2HR, 4HR, 6HR) STAT 11/19/2024 5:51 PM [facility] CBC WITH AUTO DIFFERENTIAL STAT 11/19 5:51 PM [facility] COMPREHENSIVE METABOLIC PANEL STAT 5:51 PM [facility] DEXA AXIAL SKELETON BONE DENSITY 1 OR MORE SITES Schedule Routine, Read Routine (OP Routine) 06/10/2020 from Last 3 Months or Most Recently Relevant to Health Maintenance Results * (ABNORMAL) Hemoglobin and hematocrit (11/22/2024 12:17 PM [facility]) Hgb 8.7(L) 11.9 - 15.5 g/dL Hct 24.7(L) 35.6 - 45.5 % [facility] ([facility]) Blood 11/22/2024 12:1 7 PM [facility] 11/22/2024 12:20 PM [facility] us Namita Montero MD LAB BLOOD ORDERABLES Final Resu lt [facility] ([place]) 1 [facility] [place] [address] * POCT glucose (11/22/2024 11:36 AM [facility]) Glucose, POC 128 70 - 199 mg/dL Blood 11/22/2024 11:3 6 AM [facility] 11/22/2024 11:36 AM [facility] us Lele Barriga II, MD LAB POCT ORDERABLES - DEVICE Final Result Performing Organization Address City/[facility]/ZIP Co de Phone Number [facility] ([place]) 1 [facility] [place] [address] * POCT glucose (11/22/2024 7:20 AM [facility]) [facility] Glucose, POC 105 70 - 199 mg/dL Blood 11/22/2024 7:20 AM [facility] 11/22/2024 7:20 AM [facility] us Lele Barriga II, MD LAB POCT ORDERABLES - DEVICE Final Result Performing Organization Address City/[facility]/ZIP Co de Phone Number [facility] ([place]) 1 [facility] [place] [address] * (ABNORMAL) eGFR (11/22/2024 5:49 AM [facility]) [facility] eGFR 50(L) >=60 mL/min/1. 73 m2 Comment: [...] last reviewed 2021. Blood 11/22/2024 5:49 AM [facility] 11/22/2024 6:04 AM [facility] us Namita Montero MD LAB BLOOD ORDERABLES Final Resu lt [facility] ([place]) 1 [facility] [place] [address] * Differential, auto (11/22/2024 5:49 AM [facility]) Neutrophil abs 3.9 1.5 - 6.5 K/cumm [...] revised on 2018. Blood 11/22/2024 5:49 AM [facility] 11/22/2024 6:03 AM [facility] Nicolas Salvador MD LAB BLOOD ORDERABLES Final Result [facility] ([facility]) 1 [facility] [place] [address] * (ABNORMAL) CBC with auto differential (11/22/2024 5:49 AM [facility]) WBC 6.2 3.8 - 9.9 K/cumm Hgb [...] RDW CV 13.4 11.1 - 14.9 % [facility] ([place]) RDW SD 47.8 35.7 - 48.1 fL [facility] ([place]) NRBC abs 0.00 0.00 - 0.01 K/cumm [facility] ([place]) Blood 11/22/2024 5:49 AM [facility] 11/22/2024 6:03 AM [facility] us Nicolas Salvador MD LAB BLOOD ORDERABLES Final Result [facility] ([place]) 1 [facility] [place] [address] * (ABNORMAL) Hemoglobin and hematocrit (11/22/2024 5:49 AM [facility]) Hgb 8.5(L) 11.9 - 15.5 g/dL Hct 25.3(L) 35.6 - 45.5 % [facility] ([place]) Blood 11/22/2024 5:49 AM [facility] 11/22/2024 6:03 AM [facility] us Namita Montero MD LAB BLOOD ORDERABLES Final Resu lt Performing Organization Address City/[facility]/ZIP Co de Phone Number [facility] ([place]) 1 [facility] [place] [address] * Phosphorus (11/22/2024 5:49 AM [facility]) Phosphorus, pl 3.0 2.3 - 4.5 mg/dL Blood 11/22/2024 5:49 AM [facility] 11/22/2024 6:04 AM [facility] us Namita Montero MD LAB BLOOD ORDERABLES Final Resu lt Performing Organization Address City/[facility]/ZIP Co de Phone Number [facility] ([place]) 1 [facility] [place] [address] * Magnesium (11/22/2024 5:49 AM [facility]) Magnesium 2.0 1.4 - 2.5 mg/dL Blood 11/22/2024 5:49 AM [facility] 11/22/2024 6:04 AM [facility] us Namita Montero MD LAB BLOOD ORDERABLES Final Resu lt [facility] ([place]) 1 [facility] [place] [address] * (ABNORMAL) Comprehensive metabolic panel (11/22/2024 5:49 AM [facility]) Sodium 141 135 - 145 mmol/L Potassium, [...] ([facility]) Glucose 94 70 - 199 mg/dL [facility] Comment: Interpretive Data Fasting glucose [...] Alk phos 33(L) 40 - 130 Units/L [facility] ([facility]) ALT 24 7 - 45 Units/L [facility] ([place]) AST 37 10 - 45 Units/L [facility] ([place]) Blood 11/22/2024 5:49 AM [facility] 11/22/2024 6:04 AM [facility] Namita Montero MD LAB BLOOD ORDERABLES Final Resu lt [facility] ([place]) 1 [facility] [place] [address] * (ABNORMAL) Hemoglobin and hematocrit (11/22/2024 12:10 AM [facility]) [facility] Hgb 8.4(L) 11.9 - 15.5 g/dL Hct 24.4(L) 35.6 - 45.5 % [facility] ([place]) Blood 11/22/2024 12:1 0 AM [facility] 11/22/2024 12:38 AM [facility] Namita Montero MD LAB BLOOD ORDERABLES Final Resu lt Performing Organization Address [facility] Co de Phone Number [facility] ([place]) [address] [place] [address] [place] [address] * POCT glucose (11/21/2024 8:25 PM [facility] [employer] [facility]) Pathologist [facility] Glucose, POC 102 70 - 199 mg/dL Blood 11/21/2024 8:25 PM [facility] 11/21/2024 8:25 PM [facility] Namita Montero MD LAB POCT ORDERABLES - DEVICE Fi nal Result Performing Organization Address City/[facility] Co de Phone Number [facility] [place] 1 [facility] [place] [address] * (ABNORMAL) Hemoglobin and hematocrit (11/21/2024 6:36 PM [facility]) [facility] Hgb 8.2(L) 11.9 - 15.5 g/dL Hct 24.7(L) 35.6 - 45.5 % [facility] ([place]) Blood 11/21/2024 6:36 PM [facility] 11/21/2024 7:05 PM [facility] Namita Montero MD LAB BLOOD ORDERABLES Final Resu lt Performing Organization Address City/[facility]/ZIP Co de Phone Number [facility] ([place]) 1 [facility] [place] [address] * POCT glucose (11/21/2024 4:31 PM [facility]) [facility] Glucose, POC 120 70 - 199 mg/dL Blood 11/21/2024 4:31 PM [facility] 11/21/2024 4:31 PM [facility] Namita Montero MD LAB POCT ORDERABLES - DEVICE Fi nal Result Performing Organization Address [facility] Co de Phone Number [facility] ([place]) [address] [place] [address] [place] [address] * EGD (11/21/2024 1:52 PM [facility]) Anatomical Region Laterality Modality Other Narrative Procedure Note Fco Vivar MD - 11/21/2024 1:52 PM CST [facility] Patient Name: Lori Burns Procedure Date: 11/21/2024 1:52 PM Date of : 1940 Admit Type: Inpatient Age: 83 Gender: Female Attending MD: Fco Vivar M.D. Room: [facility] ENDOSCOPY ROOM 2 Note Status: Finalized Patient [...] procedure were verified by the physician, the pantograph operator and the emergency room technician in the endoscopy suite. Mental Status [...] passed under direct vision. The Endoscope [id number] was introduced through the mouth, and advanced [...] 1:52 PM Procedure Code(s): --- Professional --- 49720, 59, Esophagogastroduodenoscopy, flexible, transoral; withcontrol of bleeding, any method --- Technical --- 30712, 59, Esophagogastroduodenoscopy, flexible, transoral; withcontrol of bleeding, any method Diagnosis Code(s): --- Professional --- D62, Acute posthemorrhagic anemia K92.1, Melena (includes Hematochezia) --- Technical --- D62, Acute posthemorrhagic anemia K92.1, Melena (includes Hematochezia) CPT copyright 2020 [employer]. All rights reserved. The codes documented in this report are preliminary and upon auditing coder reviewmay be revised to meet current compliance requirements. Recognized by the [employer] for promoting quality in endoscopy Fco Vivar MD ENDOSCOPY PROCEDURES Final Resul t * (ABNORMAL) Hemoglobin and hematocrit (11/21/2024 11:59 AM [facility]) Hgb 8.9(L) 11.9 - 15.5 g/dL Hct 26.7(L) 35.6 - 45.5 % [facility] ([place]) Blood 11/21/2024 11:5 9 AM [facility] 11/21/2024 12:31 PM [facility] Namita Montero MD LAB BLOOD ORDERABLES Final Resu lt Performing Organization Address City/[facility]/ZIP Co de Phone Number [facility] ([place]) 1 [facility] [place] [address] * POCT glucose (11/21/2024 11:20 AM [facility]) Glucose, POC 123 70 - 199 mg/dL Blood 11/21/2024 11:2 0 AM [facility] 11/21/2024 11:20 AM [facility] Namita Montero MD LAB POCT ORDERABLES - DEVICE Fi nal Result Performing Organization Address City/[facility]/ZIP Co de Phone Number [facility] ([place]) 1 [facility] [place] [address] * POCT glucose (11/21/2024 7:49 AM [facility]) Glucose, POC 121 70 - 199 mg/dL Blood 11/21/2024 7:49 AM [facility] 11/21/2024 7:49 AM [facility] Namita Montero MD LAB POCT ORDERABLES - DEVICE Fi nal Result Performing Organization Address City/[facility]/ZIP Co de Phone Number [facility] ([place]) [address] [place] [address] [place] [address] * (ABNORMAL) eGFR (11/21/2024 5:40 AM [facility]) eGFR 40(L) >=60 mL/min/1. 73 m2 Comment: [...] last reviewed 2021. Blood 11/21/2024 5:40 AM [facility] 11/21/2024 5:58 AM [facility] Namita Montero MD LAB BLOOD ORDERABLES Final Resu lt Performing Organization Address City/[facility]/ZIP Co de Phone Number [facility] ([place]) 1 [facility] [place] [address] * (ABNORMAL) Differential, auto (11/21/2024 5:40 AM [facility]) Neutrophil abs 3.7 1.5 - 6.5 K/cumm [...] revised on 2018. Blood 11/21/2024 5:40 AM [facility] 11/21/2024 5:58 AM [facility] us Nicolas Salvador MD LAB BLOOD ORDERABLES Final Result [facility] ([place]) 1 [facility] [place] [address] * (ABNORMAL) CBC with auto differential (11/21/2024 5:40 AM [facility]) [facility] WBC 6.5 3.8 - 9.9 K/cumm Hgb 8.2(L) 11.9 - 15.5 g/dL [facility] ([place]) Hct 23.9(L) 35.6 - 45.5 [...] [facility] ([place]) Blood 11/21/2024 5:40 AM [facility] 11/21/2024 5:58 AM [facility] us Nicolas Salvador MD LAB BLOOD ORDERABLES Final Result [facility] ([place]) 1 [facility] Department of [place] [address] * Phosphorus (11/21/2024 5:40 AM [facility]) [facility] Phosphorus, pl 3.7 2.3 - 4.5 mg/dL Blood 11/21/2024 5:40 AM [employer] 11/21/2024 5:58 AM [employer] Namita Montero MD LAB BLOOD ORDERABLES Final Resu lt GILSON PEREIRA ([place]) 1 [facility] [place] [address] * Magnesium (11/21/2024 5:40 AM [employer]) [facility] Magnesium 2.1 1.4 - 2.5 mg/dL Blood 11/21/2024 5:40 AM [employer] 11/21/2024 5:58 AM [employer] Namita Montero MD LAB BLOOD ORDERABLES Final Resu lt Performing Organization Address City/[facility] Co de Phone Number GILSON PEREIRA ([place]) 1 [facility] [place] [address] * (ABNORMAL) Comprehensive metabolic panel (11/21/2024 5:40 AM [employer]) [facility] Sodium 141 135 - 145 mmol/L Potassium, [...] - 45 Units/L [facility] ([place]) AST 31 10 - 45 Units/L [facility] ([place]) Blood 11/21/2024 5:40 AM [employer] 11/21/2024 5:58 AM [employer] Namita Montero MD LAB BLOOD ORDERABLES Final Resu lt GILSON PEREIRA ([place]) 1 [facility] [place] [address] * POCT glucose (11/21/2024 2:10 AM [employer]) Glucose, POC 109 70 - 199 mg/dL Blood 11/21/2024 2:10 AM [employer] 11/21/2024 2:10 AM [employer] Namita Montero MD LAB POCT ORDERABLES - DEVICE Fi nal Result Performing Organization Address City/[facility]/ZIP Co de Phone Number GILSON PEREIRA ([place]) 1 [facility] [place] [address] * (ABNORMAL) Hemoglobin and hematocrit (11/21/2024 12:07 AM [employer]) Hgb 8.0(L) 11.9 - 15.5 g/dL Hct 23.5(L) 35.6 - 45.5 % GONZALEZLORA PEREIRA ([place]) Blood 11/21/2024 12:0 7 AM [employer] 11/21/2024 12:19 AM [employer] Namita Montero MD LAB BLOOD ORDERABLES Final Resu lt Performing Organization Address City/[facility]/ZIP Co de Phone Number GILSON PEREIRA ([place]) 1 [facility] [place] [address] * POCT glucose (11/20/2024 8:30 PM [employer]) Glucose, POC 139 70 - 199 mg/dL Blood 11/20/2024 8:30 PM [employer] 11/20/2024 8:30 PM [employer] Namita Montero MD LAB POCT ORDERABLES - DEVICE Fi nal Result Performing Organization Address [facility] Co de Phone Number GILSON PEREIRA ([place]) 1 [facility] [place] [address] * (ABNORMAL) Hemoglobin and hematocrit (11/20/2024 5:33 PM [employer]) Hgb 8.3(L) 11.9 - 15.5 g/dL Hct 24.2(L) 35.6 - 45.5 % GILSON RANDALL ([place]) Blood 11/20/2024 5:33 PM [employer] 11/20/2024 6:45 PM [employer] Namita Montero MD LAB BLOOD ORDERABLES Final Resu lt Performing Organization Address City/[facility]/ZIP Co de Phone Number GILSON PEREIRA ([place]) 1 [facility] [place] [address] * POCT glucose (11/20/2024 4:32 PM [employer]) Glucose, POC 126 70 - 199 mg/dL Blood 11/20/2024 4:32 PM [employer] 11/20/2024 4:32 PM [employer] us Namita Motnero MD LAB POCT ORDERABLES - DEVICE Fi nal Result Performing Organization Address [facility] Co de Phone Number GILSON PEREIRA [place]) 1 [facility] [place] [address] * (ABNORMAL) Hemoglobin and hematocrit (11/20/2024 12:05 PM [employer]) Hgb 8.2(L) 11.9 - 15.5 g/dL Hct 23.7(L) 35.6 - 45.5 % GILSON PEREIRA ([place]) Blood 11/20/2024 12:0 5 PM [employer] 11/20/2024 12:23 PM [employer] us Namita Montero MD LAB BLOOD ORDERABLES Final Resu lt Performing Organization Address [facility] de Phone Number GILSON PEREIRA [place]) 1 [facility] [place] [address] * POCT glucose (11/20/2024 11:32 AM [employer]) Glucose, POC 167 70 - 199 mg/dL Blood 11/20/2024 11:3 2 AM [employer] 11/20/2024 11:32 AM [employer] us Namita Montero MD LAB POCT ORDERABLES - DEVICE Fi nal Result Performing Organization Address [facility] Co de Phone Number GILSON PEREIRA [place]) 1 [facility] [place] [address] * POCT glucose (11/20/2024 7:37 AM [employer]) Glucose, POC 143 70 - 199 mg/dL Blood 11/20/2024 7:37 AM [employer] 11/20/2024 7:37 AM [employer] us Namita Montero MD LAB POCT ORDERABLES - DEVICE Fi nal Result Performing Organization Address [facility]/ZIP Co de Phone Number GILSON PEREIRA ([place]) 1 [facility] [place] [address] * (ABNORMAL) eGFR (11/20/2024 5:20 AM [employer]) eGFR 42(L) >=60 mL/min/1. 73 m2 Comment: [...] last reviewed 2021. Blood 11/20/2024 5:20 AM [employer] 11/20/2024 5:21 AM [employer] Nicolas Salvador MD LAB BLOOD ORDERABLES Final Result Performing Organization Address City/[facility]/ZIP Co de Phone Number GILSON PEREIRA ([place]) 1 [facility] [place] [address] * (ABNORMAL) Differential, auto (11/20/2024 5:20 AM [employer]) Neutrophil abs 4.6 1.5 - 6.5 K/cumm [...] revised on 2018. Blood 11/20/2024 5:20 AM [employer] 11/20/2024 5:21 AM [employer] us Nicolas Salvador MD LAB BLOOD ORDERABLES Final Result GILSON PEREIRA ([place]) 1 [facility] [place] [address] * (ABNORMAL) CBC with auto differential (11/20/2024 5:20 AM [employer]) WBC 7.6 3.8 - 9.9 K/cumm Hgb [...] [facility] ([place]) Blood 11/20/2024 5:20 AM [employer] 11/20/2024 5:21 AM [employer] us Nicolas Salvador MD LAB BLOOD ORDERABLES Final Result [facility] ([place]) 1 [facility] [place] [address] * (ABNORMAL) Manual Differential (11/20/2024 5:20 AM [employer]) Pathologist [facility] Differential Auto Neutrophil abs 4.6 1.5 - [...] revised on 2018. Monocyte pct 14.7 % [facility] ([place]) Comment: Interpretive Data Percent cell [...] revised on 2018. Basophil pct 0.3 % [facility] ([place]) Comment: Interpretive Data Percent cell count reference ranges are not reported, since discordance with absolute values may lead to misinterpretation of CBC data. Current Interpretive Data was last revised on 2018. RBC morphology Consistent with RBC Indicies GILSON PEREIRA ([place]) Anisocytosis Slight(A) GILSON PEREIRA ([place]) Microcytes 3-7/HPF(A) GILSON Keane ([place]) Platelet estimate Adequate CE RU PEREIRA ([place]) Blood 11/20/2024 5:20 AM [employer] 11/20/2024 5:21 AM [employer] Nicolas Salvador MD LAB BLOOD ORDERABLES Final Result [facility] ([place]) 1 [facility] [place] [address] * (ABNORMAL) Comprehensive metabolic panel (11/20/2024 5:20 AM [employer]) Sodium 136 135 - 145 mmol/L Potassium, [...] Hemolyzed S pecimen Blood 11/20/2024 5:20 AM [employer] 11/20/2024 5:21 AM [employer] us Nicolas Salvador MD LAB BLOOD ORDERABLES Final Result Performing Organization Address [facility] Co de Phone Number GILSON PEREIRA ([place]) 1 [facility] [place] [address] * Transfuse RBC (11/20/2024 3:12 AM [employer]) Blood us Nicolas Salvador MD BLOOD TRANSFUSION ORDERABLE S Final Result Performing Organization Address [facility] Co de Phone Number GILSON PEREIRA ([place]) 1 [place] [address] * Troponin T high-sensitivity 6-hour (11/20/2024 12:26 AM [employer]) Trop T hs See Comment <=14 Comment: sample short cannot perform test Interpretive Data For further hscTnT resources including the diagnostic algorithm and an aid in interpretation, copy and paste this link: https://nrl.testcatalog.org/show/hsTrop Current Interpretive Data last revised 2020. Trop T hs interp See Comment Shonna PEREIRA ([place]) Comment:sample short cannot perform test Blood 11/20/2024 12:2 6 AM [employer] 11/20/2024 12:30 AM [employer] us Nicolas Salvador MD LAB BLOOD ORDERABLES Final Result Performing Organization Address [facility] Co de Phone Number GILSON PEREIRA ([place]) 1 [facility] [place] [address] * CT Chest PE (CTA) Abdomen Pelvis W Contrast (11/19/2024 10:33 PM [employer]) Anatomical Region Laterality Modality Body N/A Computed Tomogra phy 11/19/2024 11:0 0 PM [employer] Narrative 11/19/2024 11:21 PM [employer] EXAM DESCRIPTION: CT CHEST PE (CTA) ABDOMEN [...] Adriano Maradiaga M.D. KT: EVELIN Report ID: [id number] Reading Location: [id number] Procedure Note Adriano Maradiaga MD - 11/19/2024 [...] Adriano Maradiaga M.D. KT: KT Report ID: [id number] Reading Location: [place] [address] us Nicolas Salvador MD IMG CT PROCEDURES Final Res ult * Prepare RBC: 1 Units (11/19/2024 10:18 PM [employer]) Units requested 1 Units requested Ready [facility] ([place]) Unit Number [id number] Product code [id number] [facility] ([place]) Blood Expiration Date [id number] [facility] ([place]) Product Blood Type (for scanning) 6200 [facility] ([place]) Product Blood Type APOS [facility] ([place]) Dispense Status DISPENSED [facility] ([place]) Blood 11/19/2024 10:1 8 PM [employer] 11/19/2024 10:18 PM [employer] Nicolas Salvador MD BLOOD BANK PRODUCT ORDERABL ES Final Result [facility] ([place]) 1 [facility] [place] [address] * Thyroid Function [place] (11/19/2024 9:17 PM [employer]) TSH 2.37 0.30 - 4.20 mcIUnit/mL Blood 11/19/2024 9:17 PM [employer] 11/19/2024 9:24 PM [employer] Nicolas Salvador MD LAB BLOOD ORDERABLES Final Result Performing Organization Address City/[facility]/ZIP Co de Phone Number GILSON PEREIRA ([place]) 1 [facility] [place] [address] * Iron profile w/ IBC (11/19/2024 9:17 PM [employer]) Iron 70 35 - 145 mcg/dL TIBC 275 250 - 400 mcg/dL [facility] ([place]) Transferrin saturation 25 20 - 50 % [facility] ([place]) Blood 11/19/2024 9:17 PM [employer] 11/19/2024 9:24 PM [employer] Nicolas Salvador MD LAB BLOOD ORDERABLES Final Result Performing Organization Address [facility] Co de Phone Number GILSON PEREIRA ([place]) 1 [facility] [place] [address] * ABO/Rh (11/19/2024 9:17 PM [employer]) ABO/Rh A Positive Blood 11/19/2024 9:17 PM [employer] 11/19/2024 9:24 PM [employer] Narrative GILSON PEREIRA ([place]) - 11/19/2024 9:53 PM [employer] Has the patient had Daratumumab or Isatuximab in the past 6 months?->Unknown Nicolas Salvador MD LAB BLOOD BANK TEST ORDERAB LES Final Result Performing Organization Address [facility]/ZIP Co de Phone Number GILSON PEREIRA ([place]) 1 [facility] [place] [address] * Crossmatch (11/19/2024 9:17 PM [employer]) Crossmatch Compatible GILSON Keane ([place]) Unit number for crossmatch [id number] GILSON PEREIRA ([place]) Blood 11/19/2024 9:17 PM [employer] 11/19/2024 9:24 PM [employer] Nicolas Salvador MD LAB BLOOD BANK TEST ORDERAB LES Final Result GILSON PEREIRA ([place]) 1 [facility] [place] [address] * Antibody screen (11/19/2024 9:17 PM [employer]) Donna, indirect, Gel Interpretation Negative ABSC Blood 11/19/2024 9:17 PM [employer] 11/19/2024 9:24 PM [employer] Narrative GILSON PEREIRA ([place]) - 11/19/2024 10:09 PM [employer] Has the patient had Daratumumab or Isatuximab in the past 6 months?->Unknown us Nicolas Salvador MD LAB BLOOD BANK TEST ORDERAB LES Final Result Performing Organization Address [facility] Co de Phone Number GILSON PEREIRA ([place]) 1 [facility] [place] [address] * (ABNORMAL) Troponin T high-sensitivity 2-hour (11/19/2024 8:29 PM [employer]) Trop T hs 28(H) <=14 ng/L Comment: Interpretive Data For further hscTnT resources including the diagnostic algorithm and an aid in interpretation, copy and paste this link: https://nrl.testcatalog.org/show/hsTrop Current Interpretive Data last revised 2020. Trop T hs delta 3 ng/L [facility] ([place]) Trop T hs interp Insignificant CERNER RANDALL ([place]) Blood 11/19/2024 8:29 PM [employer] 11/19/2024 8:36 PM [employer] Nicolas Salvador MD LAB BLOOD ORDERABLES Final Result GILSON PEREIRA ([place]) 1 [facility] [place] [address] * CT Cervical Spine WO Contrast (11/19/2024 8:25 PM [employer]) Anatomical Region Laterality Modality Spine N/A Computed Tomogra phy 11/19/2024 9:10 PM [employer] Narrative 11/19/2024 9:16 PM [employer] EXAM DESCRIPTION: CT CERVICAL SPINE WO CONTRAST [...] Adriano Maradiaga M.D. KT: EVELIN Report ID: [id number] Reading Location: [id number] Procedure Note Adriano Maradiaga MD - 11/19/2024 [...] Adriano Maradiaga M.D. KT: EVELIN Report ID: [id number] Reading Location: [place] [address] Nav Arnold MD IMG CT PROCEDURES Final Result * CT Head WO Contrast (11/19/2024 8:25 PM [employer]) Anatomical Region Laterality Modality Head and Neck N/A Computed Tomogra phy 11/19/2024 9:16 PM [employer] Narrative 11/19/2024 9:21 PM [employer] EXAM DESCRIPTION: CT HEAD WO CONTRAST REASON [...] Adriano Maradiaga M.D. KT: EVELIN Report ID: [id number] Reading Location: [id number] Procedure Note Adriano Maradiaga MD - 11/19/2024 [...] Adriano Maradiaga M.D. KT: EVELIN Report ID: [id number] Reading Location: [id number] Nav Arnold MD IMG CT PROCEDURES Final Result * ECG 12 lead (11/19/2024 5:54 PM [employer]) 11/19/2024 5:54 PM [employer] [facility] - 11/20/2024 7:04 AM [employer] Vent Rate: 110 bpm RR Interval: 542 msec MO Interval: 158 msec QRS Duration: 80 msec QT Interval: 307 msec QTC Interval: 372 msec P-R-T [place]: 82 - 91 - 61 degrees IMPRESSION: SINUS TACHYCARDIA BORDERLINE RIGHT AXIS DEVIATION [QRS AXIS > 90] ABNORMAL RHYTHM ECG NO CHANGE FROM PREVIOUS TRACING NOTED Electronically Signed By: Terrell Campbell MD Nicolas Salvador MD ECG ORDERABLES Final Resul t Performing Organization Address City/[facility]/ZIP Co de Phone Number [facility] * (ABNORMAL) Troponin T high-sensitivity series (baseline, 2hr, 4hr, 6hr) (11/19/2024 5:51 PM [employer]) Trop T hs 25(H) <=14 ng/L Comment: Interpretive Data For further hscTnT resources including the diagnostic algorithm and an aid in interpretation, copy and paste this link: https://nrl.testcatalog.org/show/hsTrop Current Interpretive Data last revised 2020. Blood 11/19/2024 5:51 PM [employer] 11/19/2024 6:00 PM [employer] Nicolas Salvador MD LAB BLOOD ORDERABLES Final Result Performing Organization Address City/[facility]/ZIP Co de Phone Number [facility] ([place]) 1 [facility] Department of Laboratories [place] [id number] * (ABNORMAL) eGFR (11/19/2024 5:51 PM [employer]) eGFR 40(L) >=60 mL/min/1. 73 m2 Comment: [...] last reviewed 2021. Blood 11/19/2024 5:51 PM [employer] 11/19/2024 6:00 PM [employer] Nicolas Salvador MD LAB BLOOD ORDERABLES Final Result [facility] ([place]) 1 [facility] [place] [address] * (ABNORMAL) Differential, auto (11/19/2024 5:51 PM [employer]) Neutrophil abs 10.0(H) 1.5 - 6.5 K/cumm Imm gran abs 0.1 0.0 - 0.1 K/cumm [facility] ([place]) Lymphocyte abs 1.5 0.8 - 3.3 K/cumm [facility] ([place]) Monocyte abs 1.2(H) 0.2 - 0.8 K/cumm [facility] ([place]) Eosinophil abs 0.0 0.0 - 0.5 K/cumm [facility] ([place]) Basophil abs 0.0 0.0 - 0.1 K/cumm [facility] ([place]) Neutrophil pct 78.0 % [facility] ([place]) Comment: Interpretive Data Percent cell count reference [...] revised on 2018. Blood 11/19/2024 5:51 PM [employer] 11/19/2024 6:00 PM [employer] Nicolas Salvador MD LAB BLOOD ORDERABLES Final Result Performing Organization Address [facility] Co de Phone Number [facility] ([place]) 1 [facility] [place] [address] * ABO / Rh Confirmation Testing (11/19/2024 5:51 PM [employer]) ABO/Rh Confirmation A Positive [facility] Blood 11/19/2024 5:51 PM [employer] 11/19/2024 9:31 PM [employer] Nicolas Salvador MD LAB BLOOD ORDERABLES Final Result Performing Organization Address [facility] de Phone Number [facility] ([place]) 1 [facility] [place] [address] [facility] * (ABNORMAL) CBC with auto differential (11/19/2024 5:51 PM [employer]) WBC 12.8(H) 3.8 - 9.9 K/cumm Hgb 8.1(L) 11.9 - 15.5 g/dL [facility] ([place]) Hct 23.8(L) 35.6 - 45.5 % [facility] ([place]) Plt 247 150 - 400 K/cumm [facility] ([place]) MPV 11.7 9.1 - 12.3 fL [facility] RBC 2.41(L) 3.90 - 5.20 M/cumm [facility] ([place]) MCV 98.8(H) 81.3 - 96.4 fL [facility] ([place]) MCH 33.6(H) 27.1 - 33.3 pg [facility] ([place]) MCHC 34.0 32.3 - 35.7 g/dL [facility] RDW CV 12.0 11.1 - 14.9 % [facility] ([place]) RDW SD 43.4 35.7 - 48.1 fL [facility] NRBC abs 0.00 0.00 - 0.01 K/cumm [facility] ([place]) Blood 11/19/2024 5:51 PM [employer] 11/19/2024 6:00 PM [employer] Nicolas Salvador MD LAB BLOOD ORDERABLES Final Result [facility] ([place]) 1 [facility] [place] [address] * (ABNORMAL) Comprehensive metabolic panel (11/19/2024 5:51 PM [employer]) Sodium 133(L) 135 - 145 mmol/L Potassium, pl 5.3(H) 3.3 - 4.9 mmol/L [facility] Chloride 95(L) 97 - 110 mmol/L [facility] CO2 21(L) 22 - 32 mmol/L [facility] ([place]) Anion gap 16(H) 2 - 15 mmol/L [facility] BUN 79(H) 6 - 25 mg/dL [facility] Creatinine 1.34(H) 0.60 - 1.10 mg/dL [facility] ([place]) Glucose 131 70 - 199 mg/dL [facility] ([place]) Comment: Interpretive Data Fasting glucose >/= 126 [...] Slightly Hemolyzed Specimen Blood 11/19/2024 5:51 PM [facility] 11/19/2024 6:00 PM [employer] Nicolas Salvador MD LAB BLOOD ORDERABLES Final Result GILSON PEREIRA ([place]) 1 [facility] [place] [address] * Dexa Axial Skeleton Bone Density 1 or 2 Site (06/10/2020) SCRIBED DXA T-SCORE 1.6 SCRIBED DXA Z-SCORE 4.2 SCRIBED DXA BMD -0.100 Anatomical Region Laterality Modality Body N/A Radiographic Goldie ging Historical Provider IMG DXA PROCEDURES Final Result from Last 3 Months or Most Recently Relevant to Health Maintenance Insurance [employer] MEDICARE [facility] MEDICARE [facility] MEDICARE Advance Directives For more information, please contact: [phone] * Full Code (Latest Code Status on File) Date Activated Date Inactivated Comments 11/21/2024 12:57 PM 11/22/2024 5:57 PM * Full Code Date Activated Date Inactivated Comments 11/20/2024 6:37 AM 11/21/2024 12:57 PM * Full Code Date Activated Date Inactivated Comments 02/03/2022 12:59 PM 02/04/2022 6:[address] And Building Decorator Relationship Specialty Start Date End Date Kevyn Cortés MD PCP - General 12/31/16 Luis E Ko MD Surgeon Orthopedic Surgery 02/04/22
--- OUTSIDE RECORDS SUMMARY | 2024-11-23 00:41 | XMS_ITS | Encounter Summary ---
Author Organization [facility] Healthcare Address [address] [place] [address] Care Team Providers Care Sand Analyst Name Role Phone Kevyn Cortés MD Primary Care Provider [phone] Luis E Ko MD Unavailable [phone] Reason for Visit * Reason Comments Hypotension * Auth/Cert (Routine) Specialty Diagnoses / Procedures Referred By Contac t Referred To Contact Diagnoses Weight loss, non-intentional Acute upper GI bleed Procedures NA Referral ID Status Reason Start Date Expiration Date Visits Re quested Visits Authorized [id number] 1 1 Encounter Details Date Type Department Care Team (Latest Contact Info) Description 11/19/2024 8:05 PM [employer] - 11/22/2024 1:57 PM [employer] Hospital Encounter [facility] [address] [place] [address] Jose Francisco Cochran MD [address] [place] [address] [place] [address] Namita Montero MD [address] [facility] [facility] [facility] [place] [address] Lele Barriga II, MD [address] [place] [address] [place] [address] Acute upper GI bleed (Primary Dx); Weight loss, non-intentional; Acute blood loss anemia Discharge Disposition: Discharge to home or self care Social History Tobacco Use Types Packs/Day Years [...] on file Legal Sex Female 5:02 PM [employer] Gender Identity Female 11/24/2020 9:38 AM [employer] WORK[employer] Sexual Orientation Not on file documented as of this encounter Last Filed Vital Signs Vital Sign Reading Time Taken Comments Blood Pressure 137/67 11/22/2024 11:32 AM [employer] Pulse 72 11/22/2024 11:32 AM [employer] Temperature 36.3 C (97.4 F) 11/22/2024 11:32 AM [employer] Respiratory Rate 18 11/22/2024 11:32 AM [employer] WORK[employer] Oxygen Saturation 100% 11/22/2024 11:32 AM [employer] WORK[employer] Inhaled Oxygen Concentration - - Weight 50 kg (110 lb 3.7 oz) 11/20/2024 10:39 AM [employer] Height 157.5 cm (5' 2 ) 11/20/2024 10:39 AM [employer] Body Mass Index 20.16 11/20/2024 10:39 AM [employer] WORK[employer] documented in this encounter Functional Status * Audit-C Score [...] Davis RN documented as of this encounter Discharge Summaries * Lele Barriga II, MD - 11/22/2024 9:22 AM CST Inpatient Discharge Summary BRIEF OVERVIEW Admitting Provider: Jose Francisco Cochran MD Discharge Provider: Lele Barriga II, * Primary Care Physician at Discharge: Kevyn Cortés MD [phone] Admission Date: 11/19/2024 Discharge Date: 11/22/2024 Primary Discharge Diagnosis: Principal Problem: Acute upper GI bleed Active Problems: Acute blood loss anemia Nonbleeding duodenal ulcer s/p injection / tx. W/ bipolar cautery Secondary Discharge Diagnosis: Principal Problem: Acute upper GI bleed Active Problems: Acute blood loss anemia Resolved Problems: No resolved hospital problems. DETAILS OF HOSPITAL STAY Presenting Problem/History of Present Illness: 83 y.o. female with a PMHx significant for HTN, HLD, DM2. Patient presents to the ER with reports of weakness. History of present illness Patient reports that she had been feeling weak and dizzy for the past several days prior to admission, worse with standing. She also reports feeling short of breath on short walking. She also reported some black stools, no bright red blood stools. No stomach pain whatsoever no nausea vomiting no headache and no static chest pain On the day of admission, patient experienced a fall with a minor hit to the back of the head. The dizziness is exacerbated by standing and walking. The patient also reports feeling short of breath. Patient was seen in convenient care on November 11, 2024 for rash and was treated with 7 day prednisone taper starting at 30 mg and decreasing to 10 mg over 7 days. Patient states rash has resolved. In there ER, patient's labs were notable for Hb (baseline 12.2 on 06/15/2024) She was transfused 1 units PRBC with improvement of hb to 8.4. She is being admitted for medical management and GI evaluation Hospital Course: Had EGD, 2/19/25, revealing small hiatal hernia, non-bleeding duodenal ulcer injected w/ bipolar cautery. Pt. To remain on soft diet for a week. Await pathology results. Protonix 40mg po bid for 3 mo, then daily. No NSAID's. H/H stable. Cleared by GI for d/c. Test Results Pending at Discharge: Pending Labs Order Current Status Surgical pathology Collected (11/21/24 0556) Crossmatch In process Operative Procedures Performed: Procedure(s): ESOPHAGOGASTRODUODENOSCOPY INJECTION SUBMUCOSAL ENDO ADD ON ESOPHAGOGASTRODUODENOSCOPY BIOPSY Other Procedures: Pertinent Test Results: Discharge Details Physical Exam at Discharge: Discharge Condition: stable Pulse: 72 Resp: 18 BP: 147/51 Temp: 36.5 ??C (97.7 ??F) Weight: 50 kg (110 lb 3.7 oz) BP 147/51 (BP Location: Right arm, Patient Position: Lying) Pulse 72 Temp 36.5 ??C (97.7 ??F) (Temporal) Resp 18 Ht 157.5 cm (5' 2 ) Wt 50 kg (110 lb 3.7 oz) SpO2 100% BMI 20.16 kg/m?? Pertinent Exam Findings at Discharge: Patient seen and examined GEN: NAD HEENT: AT/NC, Neck supple Heart: S1, S2, RRR Lung: CTA bilateral, no wheezes, rales, rhonchi Abdomen: S, NT, ND, BS+, no CVA tenderness, no organomegaly Neuro: AAO times 3, no focal deficit Ext: No gross lower extremity edema Musk: wnl Psych: Appropriate Labs at discharge: Recent Results (from the past 24 hours) POCT glucose Collection Time: 11/21/24 11:20 AM Result Value Ref Range Glucose, POC 123 70 - 199 mg/dL Hemoglobin and hematocrit Collection Time: 11/21/24 11:59 AM Result Value Ref Range Hgb 8.9 (L) 11.9 - 15.5 g/dL Hct 26.7 (L) 35.6 - 45.5 % POCT glucose Collection Time: 11/21/24 4:31 PM Result Value Ref Range Glucose, POC 120 70 - 199 mg/dL Hemoglobin and hematocrit Collection Time: 11/21/24 6:36 PM Result Value Ref Range Hgb 8.2 (L) 11.9 - 15.5 g/dL Hct 24.7 (L) 35.6 - 45.5 % POCT glucose Collection Time: 11/21/24 8:25 PM Result Value Ref Range Glucose, POC 102 70 - 199 mg/dL Hemoglobin and hematocrit Collection Time: 11/22/24 12:10 AM Result Value Ref Range Hgb 8.4 (L) 11.9 - 15.5 g/dL Hct 24.4 (L) 35.6 - 45.5 % CBC with auto differential Collection Time: 11/22/24 5:49 AM Result Value Ref Range WBC 6.2 3.8 - 9.9 K/cumm Hgb 8.6 (L) 11.9 - 15.5 g/dL Hct 25.4 (L) 35.6 - 45.5 % Plt 156 150 - 400 K/cumm MPV 10.7 9.1 - 12.3 fL RBC 2.58 (L) 3.90 - 5.20 M/cumm MCV 98.4 (H) 81.3 - 96.4 fL MCH 33.3 27.1 - 33.3 pg MCHC 33.9 32.3 - 35.7 g/dL RDW CV 13.4 11.1 - 14.9 % RDW SD 47.8 35.7 - 48.1 fL NRBC abs 0.00 0.00 - 0.01 K/cumm Comprehensive metabolic panel Collection Time: 11/22/24 5:49 AM Result Value Ref Range Sodium 141 135 - 145 mmol/L Potassium, pl 3.7 3.3 - 4.9 mmol/L Chloride 105 97 - 110 mmol/L CO2 23 22 - 32 mmol/L Anion gap 13 2 - 15 mmol/L BUN 29 (H) 6 - 25 mg/dL Creatinine 1.11 (H) 0.60 - 1.10 mg/dL Glucose 94 70 - 199 mg/dL Calcium 9.6 8.5 - 10.3 mg/dL Bilirubin, total 0.4 0.1 - 1.2 mg/dL Protein, pl 5.5 (L) 6.5 - 8.5 g/dL Albumin 3.7 3.5 - 5.0 g/dL Alk phos 33 (L) 40 - 130 Units/L ALT 24 7 - 45 Units/L AST 37 10 - 45 Units/L Magnesium Collection Time: 11/22/24 5:49 AM Result Value Ref Range Magnesium 2.0 1.4 - 2.5 mg/dL Phosphorus Collection Time: 11/22/24 5:49 AM Result Value Ref Range Phosphorus, pl 3.0 2.3 - 4.5 mg/dL Hemoglobin and hematocrit Collection Time: 11/22/24 5:49 AM Result Value Ref Range Hgb 8.5 (L) 11.9 - 15.5 g/dL Hct 25.3 (L) 35.6 - 45.5 % Differential, auto Collection Time: 11/22/24 5:49 AM Result Value Ref Range Neutrophil abs 3.9 1.5 - 6.5 K/cumm Imm gran abs 0.0 0.0 - 0.1 K/cumm Lymphocyte abs 1.2 0.8 - 3.3 K/cumm Monocyte abs 0.8 0.2 - 0.8 K/cumm Eosinophil abs 0.3 0.0 - 0.5 K/cumm Basophil abs 0.0 0.0 - 0.1 K/cumm Neutrophil pct 63.2 % Imm gran pct 0.3 % Lymphocyte pct 19.8 % Monocyte pct 12.2 % Eosinophil pct 4.2 % Basophil pct 0.3 % eGFR Collection Time: 11/22/24 5:49 AM Result Value Ref Range eGFR 50 (L) >=60 mL/min/1.73 m2 POCT glucose Collection Time: 11/22/24 7:20 AM Result Value Ref Range Glucose, POC 105 70 - 199 mg/dL Discharge Disposition: Discharge to home or self care Full Code Discharge Instructions: Diet Instructions Adult Discharge Diet Diet Type: Other (specify) Explanatory Comment: Soft diet for 1 week Other Instructions Special Instructions - Soft diet for 1 week. - Follow up for pathology results. - Use Protonix (pantoprazole) 40 mg PO BID for 3 months then decrease to once daily indefinitely - No ibuprofen, naproxen, or other non-steroidal anti-inflammatory drugs. Discharge Medications: Your medication list START taking these medications pantoprazole DR 40 mg EC tablet Take 1 tablet (40 mg total) by mouth 2 (two) times a day for 90 days, THEN 1 tablet (40 mg total) daily. Commonly known as: PROTONIX Start taking on: November 22, 2024 CONTINUE taking these medications Melida 180 mg tablet 180 mg Doctor's comments: Generic drug: fexofenadine amLODIPine 10 mg tablet TAKE 1 TABLET(10 MG) BY MOUTH DAILY Commonly known as: NORVASC ascorbic acid 500 mg tablet,chewable 500 mg, oral, Daily Commonly known as: VITAMIN C aspirin 81 mg enteric coated tablet 81 mg, Daily chlorthalidone 25 mg tablet TAKE 1 TABLET BY MOUTH EVERY DAY Commonly known as: HYGROTON ezetimibe 10 mg tablet TAKE 1 TABLET(10 MG) BY MOUTH DAILY Commonly known as: ZETIA lisinopriL 40 mg tablet TAKE 1 TABLET(40 MG) BY MOUTH DAILY Commonly known as: PRINIVIL,ZESTRIL PARoxetine 10 mg tablet TAKE 1 TABLET(10 MG) BY MOUTH DAILY Commonly known as: PAXIL Vitamin D3 50 mcg (2,000 unit) capsule take 1 by Oral route every day Generic drug: cholecalciferol STOP taking these medications amoxicillin 500 mg tablet/capsule Commonly known as: AMOXIL Outpatient Follow-Up: Future Appointments Date Time Provider Department Center 12/19/2024 11:30 AM Kevyn Cortés MD [facility] 227 No follow-up provider specified. Time Spent on Discharge: 45 minutes Voice recognition software was used to complete this document. Lele Barriga II, MD 11/22/2024 9:22 AM [employer] WORK[employer] documented in this encounter Discharge Instructions * Discharge Instructions* Macrina Montenegro RN - 11/22/2024 9:55 AM [employer] WORKER THANK YOU for choosing our team to provide your health care. Your HEALTH AND SAFETY are important to us. We hope you feel your care on [facility] is ALWAYS EXCELLENT! Please call [facility] at [phone] if you have any questions regarding your care. Wishing you continued improvement during your recovery. Your Surgical Care Unit Team Macrina Alonso Dana, Krista, Denise, Nancy, Samantha, Stacy, Debbie, Sheila, Lamika, Judy, Lindsay, Suzie, Jocelyn, Rochelle, Simona, Bonnie, Melanie, Kala, Ashley, Monique, Jaz, Jes, Karime and Brittni [employer] WORKER * Discharge Instr - Diet* Andres Joyner - 11/22/2024 10:24 AM [employer] WORKER Continue to follow a Consistent Carbohydrate diet upon discharge. Avoid concentrated sweets such ascookies, cake, candy and ice cream. Also, avoid sugar-sweetened beverages such as lemonade, sweet tea, regular soda, juice and Gatorade. Eat 45 - 60 g (women), 60 - 75 g (men) of carbohydrates at each meal. Eat 3 meals per day and try to eat at consistent times. Additional resources: [place] [employer] can be found at www.diabetes.org/nutrition If poor intakes and/or unintended weight loss occur on discharge follow up with primary care physician. Call [facility] Dietitian's office at [phone] for questions about your diet. If interested in nutrition counseling, ask your doctor for referral and call [phone] to make an appointment. Recommend to eat a GI soft diet until physician approves advancement. This diet consists of foods that are easily digested. Acceptable foods are soft in texture and low in fiber. Highly fibrous foods, fried foods, legumes, spicy foods, and gas forming fruits and vegetables are likely to cause pain and discomfort and should be avoided. Additional resources are available online from the Academy of Nutrition and Dietetics at www.eatright.org If poor intakes and/or unintended weight loss occur on discharge follow up with primary care physician. Call [facility] Dietitian's office at [phone] for questions about your diet. If interested in nutrition counseling, ask your doctor for referral and call [phone] to make an appointment. [employer] WORK[employer] * Attachments The following attachments cannot be sent through Care Everywhere. * Pantoprazole (By mouth) (Indonesian) documented in this encounter Medications at Time of Discharge amLODIPine (NORVASC) 10 mg tablet TAKE 1 TABLET(10 MG) BY MOUTH DAILY 90 tablet 3 07/19/2024 aspirin 81 mg enteric coated tablet Take 1 tablet (81 mg total) by mouth daily chlorthalidone (HYGROTON) 25 mg tablet TAKE 1 TABLET BY MOUTH EVERY DAY 90 tablet 3 10/01/2024 cholecalciferol (VITAMIN D3) 2,000 unit capsule take 1 by Oral route every day 0 0 04/01/2016 ezetimibe (ZETIA) 10 mg tablet TAKE 1 TABLET(10 MG) BY MOUTH DAILY 90 tablet 2 08/13/2024 fexofenadine (MELIDA) 180 mg tablet take 1 tablet (180MG) by oral route every day 0 07/15/2011 lisinopriL (PRINIVIL,ZESTRIL) 40 mg tablet TAKE 1 TABLET(40 MG) BY MOUTH DAILY 90 tablet 1 09/17/[address] (PROTONIX) 40 mg EC tabletIndications: GI Bleed Take 1 tablet (40 mg total) by mouth 2 (two) times a day for 90 days, THEN 1 tablet (40 mg total) daily. 540 tablet 11/22/2024 02/20/2026 PARoxetine (PAXIL) 10 mg tabletIndications: Depression, unspecified depression type TAKE 1 TABLET(10 MG) BY MOUTH DAILY 90 tablet 3 06/29/2024 documented as of this encounter Ordered Prescriptions Prescription Sig Dispense Quantity Refills Last Filled Start Date End Date pantoprazole DR (PROTONIX) 40 mg EC tabletIndications: GI Bleed Take 1 tablet (40 mg total) by mouth 2 (two) times a day for 90 days, THEN 1 tablet (40 mg total) daily. 540 tablet 11/22/2024 02/20/2026 documented in this encounter Discharge Disposition Disposition Code Departure Means Destination Comment s Discharge to home or self care documented in this encounter Progress Notes * Andres Joyner - 11/22/2024 10:24 AM CST NUTRITION ASSESSMENT Nutrition Status: Patient at risk for malnutrition, but does not meet AAIM (ASPEN) criteria for malnutrition. REASON FOR ASSESSMENT: Screened at Nutrition Risk - At Risk MST Score Encounter Date: 11/22/24 10:24 AM Admission Date: 11/19/2024 LOS: 2 days HPI: Patient is a 83 y.o. female with a PMHx significant for HTN, HLD, DM2. Patient presents to the ER with reports of weakness. History of present illness Patient reports that she had been feeling weak and dizzy for the past several days prior to admission, worse with standing. She also reports feeling short of breath on short walking. She also reported some black stools, no bright red blood stools. No stomach pain whatsoever no nausea vomiting no headache and no static chest pain On the day of admission, patient experienced a fall with a minor hit to the back of the head. The dizziness is exacerbated by standing and walking. The patient also reports feeling short of breath. Patient was seen in convenient care on November 11, 2024 for rash and was treated with 7 day prednisone taper starting at 30 mg and decreasing to 10 mg over 7 days. Patient states rash has resolved. In there ER, patient's labs were notable for Hb (baseline 12.2 on 06/15/2024) She was transfused 1 units PRBC with improvement of hb to 8.4. 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 No pertinent surgical history. Social History Tobacco Use Smoking status: Never Smokeless tobacco: Never Substance and Sexual Activity Drug use: Never Sexual activity: None Alcohol Use: Not At Risk (11/20/2024) AUDIT-C Frequency of Alcohol Consumption: 2-3 times a week Average Number of Drinks: 1 or 2 Frequency of Binge Drinking: Never MEDICATION/LAB REVIEW: Scheduled Meds: amLODIPine, 10 mg, oral, Daily ascorbic acid, 500 mg, oral, Daily [Held by Provider] aspirin, 81 mg, oral, Daily [Held by Provider] chlorthalidone, 25 mg, oral, Daily cholecalciferol, 2,000 Units, oral, Daily EPINEPHrine, 1 mg, other, Once ezetimibe, 10 mg, oral, Daily lisinopriL, 40 mg, oral, Daily loratadine, 10 mg, oral, Daily pantoprazole DR, 40 mg, oral, BID PARoxetine, 10 mg, oral, Daily Continuous Infusions: sodium chloride 0.9%, 30 mL/hr, Last Rate: Stopped (11/21/24 1432) PRN Meds: Recent Labs Lab Units 11/22/24 0549 11/21/24 0540 SODIUM mmol/L 141 141 POTASSIUM PLASMA mmol/L 3.7 4.2 CHLORIDE mmol/L 105 106 CO2 mmol/L 23 25 BUN SERUM mg/dL 29* 45* CREATININE mg/dL 1.11* 1.32* [id number] mL/min/1.73 m2 50* 40* CALCIUM mg/dL 9.6 9.7 ALBUMIN g/dL 3.7 3.6 PHOSPHORUS PLASMA mg/dL 3.0 3.7 MAGNESIUM mg/dL 2.0 2.1 Recent Labs Lab Units 11/22/24 0720 11/22/24 0549 11/21/24202411/21/24 1631 11/21/24 1120 11/21/24 0749 11/21/24 0540 GLUCOSE mg/dL -- 94 -- -- -- -- 108 POC GLUCOSE MONITOR mg/dL 105 -- 102 120 123 121 -- ALT Date Value Ref Range Status 11/22/2024 24 7 - 45 Units/L Final AST Date Value Ref Range Status 11/22/2024 37 10 - 45 Units/L Final Alk phos Date Value Ref Range Status 11/22/2024 33 (L) 40 - 130 Units/L Final Lab Results Component Value Date HGBA1C 5.6 06/15/2024 HDL 86 06/15/2024 LDLCALC 120.20 05/09/2018 CHOL 219 (H) 06/15/2024 TRIG 72 06/15/2024 NURSING ASSESSMENT: Last BM Date: 11/20/24 Bowel Sounds (All Quadrants): Active Emiliano Scale Score: 20 Skin Integrity: Bruising Vital Signs BP: 147/51 Temp: 36.5 ??C (97.7 ??F) Pulse: 72 Resp: 18 SpO2: 100 % Intake/Output Summary (Last 24 hours) at 11/22/2024 1024 Last data filed at 11/22/2024 0900 Gross per 24 hour Intake 3090 ml Output 0 ml Net 3090 ml Adult Malnutrition Scoring Tool (MST) What diet do you follow at home?: regular Have You Recently Lost Weight Without Trying?: Yes (Comment) How Much Weight Have You Lost?: 14 - 23 lb Have you been eating poorly because of a decreased appetite?: No Malnutrition Screening Tool (MST) Score: 2 Hunger Screen - Admission Within the past 12 months the food we bought just didn't last and we didn't have money to get more.: Never true Within the past 12 months we worried whether our food would run out before we got money to buy more.: Never true Anthropometrics Weight: 50 kg (110 lb 3.7 oz) Admission Weight : 50 kg Weight Change: 1.01 kg (2.23 lbs) IBW/kg (Calculated) : 49.9 kg Height: 157.5 cm (5' 2 ) BMI Amputation Adjustment: No Weight in (lb) to have BMI = 25: 136.4 BMI (Calculated): 20.2 BMI Classification: BMI 18.5 - 24.9 Normal Weight Wt Readings from Last 10 Encounters: 11/20/24 50 kg (110 lb 3.7 oz) 11/19/24 49 kg (108 lb) 11/11/24 50.8 kg (112 lb) 06/21/24 51.7 kg (114 lb) 12/19/23 52.2 kg (115 lb) 06/17/23 51.3 kg (113 lb) 02/03/23 52.2 kg (115 lb) 12/15/22 52.2 kg (115 lb) 06/16/22 52.6 kg (116 lb) 03/23/22 51.7 kg (114 lb) ESTIMATED NEEDS: Total Kcal/kg Estimated Needs : 1350 Kcal/k. Type of Weight Used for Estimated Kcals: Current Total Protein Estimated Needs (gm): 55 Protein Needs Based on g/k.1 Type of Weight Used for Estimated Protein : Current Type of Weight Used for Estimated Fluid Needs: RD determined Total Fluid Estimated Needs Comments::1,500mL/day Dietary Orders (From admission, onward) Start Ordered 11/21/24 1613 Adult Diet GI Diets; GI Soft; Consistent Carbohydrate Diet effective now Question Answer Comment ([facility]) Diet Type GI Diets GI: GI Soft Diabetic: Consistent Carbohydrate 11/21/24 1614 Allergies: Reviewed. IMPRESSION: Pt seen for MST-2. Pt states that appetite is good, that she has been eating at her baseline at home, 2 meals/day, and that she limits sweets. Pt denies food insecurity, ONS use, cultural/christianity food preferences, n/v, and c/s issues. Pt states that she has lost 20lbs in the past 2 years, unable to confirm per EMR. PO intake has been poor, 8.3%. Per EMR, pt has had a 3.5% wt loss in 5 months, not clinically significant. Pt had muscle and fat wasting, likely age related. AAIM (ASPEN) MALNUTRITION ASSESSMENT: Date of completion: 11/22/24 ASPEN/AND Malnutrition Screening: Patient does not meet malnutrition criteria NUTRITION FOCUSED PHYSICAL EXAM: Completed, physical findings below. Subcutaneous Fat Loss Orbital Region - Surrounding the Eye: Slightly dark circles Cheek Region - Buccal Fat: Somewhat sunken appearance Upper Arm Region - Triceps/Biceps: Some depth pinch but not ample Thoracic and Lumbar Region - Ribs, Lower Back, Midaxillary Line: Ribs apparent Muscle Loss Islam Region - Temporalis Muscle: Slight depression Clavicle Bone Region - Pectoralis Major, Deltoid, Trapezius Muscles: Protruding, prominent bone Clavicle and Acromion Bone Region - Deltoid Muscle: Bones prominent Dorsal Hand - Interosseous Muscle: Depressed area between thumb/forefinger Anterior Thigh and Patellar Region - Quadricep Muscle: Patella prominent, square appearance Posterior Calf Region - Gastrocnemius Muscle: Thin, minimal to no muscle definition NUTRITION DIAGNOSIS: Nutrition Diagnosis 1: Inadequate energy intake Related to: Acute illness/injury Evidenced by: Patient interview, Physical finding, PO under 50% INTERVENTION(S): Summary: Medical food supplement, Education, nutrition, Encouragement Encouraged adequate PO intakes and prioritizing protein during meals at home. Add Glucerna, any flavor, with breakfast and dinner. GOAL(S): Oral intake to meet 75% estimated nutritional needs by next assessment, Diet consistency appropriate for patient needs during stay, Tolerance of medical food supplement by next assessment MONITORING/EVALUATION: Appetite, Labs, Plan of care, PO intake, Supplement tolerance, Weight changes, Discharge plans Diet Instructions Adult Discharge Diet Diet Type: Other (specify) Explanatory Comment: Soft diet for 1 week Continue to follow a Consistent Carbohydrate diet upon discharge. Avoid concentrated sweets such ascookies, cake, candy and ice cream. Also, avoid sugar-sweetened beverages such as lemonade, sweet tea, regular soda, juice and Gatorade. Eat 45 - 60 g (women), 60 - 75 g (men) of carbohydrates at each meal. Eat 3 meals per day and try to eat at consistent times. Additional resources: [place] [employer] can be found at www.diabetes.org/nutrition If poor intakes and/or unintended weight loss occur on discharge follow up with primary care physician. Call [facility] Dietitian's office at [phone] for questions about your diet. If interested in nutrition counseling, ask your doctor for referral and call [phone] to make an appointment. Recommend to eat a GI soft diet until physician approves advancement. This diet consists of foods that are easily digested. Acceptable foods are soft in texture and low in fiber. Highly fibrous foods, fried foods, legumes, spicy foods, and gas forming fruits and vegetables are likely to cause pain and discomfort and should be avoided. Additional resources are available online from the Academy of Nutrition and Dietetics at www.eatright.org If poor intakes and/or unintended weight loss occur on discharge follow up with primary care physician. Call [facility] Dietitian's office at [phone] for questions about your diet. If interested in nutrition counseling, ask your doctor for referral and call [phone] to make an appointment. Laure Harkins [employer] Inpatient Office: [phone] Weekend Coverage: [phone] Cosigned [address] Prema Darby RD at 11/22/2024 10:51 AM [employer] WORKER [employer] WORKER [employer] WORKER [employer] WORKER [employer] WORKER * Dot Verma OT - 11/22/2024 9:30 AM CST Occupational Therapy 11/22/24 0928 General Session Type Discharge OT Missed Visit Reason (Pt. reports being independent in room with functional mobility and ADLs. She reports no difficultywith tasks and is excited about being discharged home today. WIll d/c OT orders at this time per pt. request as pt. is currently independent in room.) [employer] * Namita Montero MD - 11/21/2024 4:49 PM CST General Medicine Daily Progress Summary Patient is a 83 y.o. female with a PMHx significant for HTN, HLD, DM2. Patient presents to the ER with reports of weakness. In there ER, patient's labs were notable for Hb (baseline 12.2 on 06/15/2024) She was transfused 1 units PRBC with improvement of hb to 8.4. Subjective Patient underwent EGD this afternoon which showed erythematous mucosa in the greater curvature of the gastric body and antrum. Duodenal ulcer with a nonbleeding visible vessel. Patient's hemoglobin has been stable overnight. 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 Up in bedside chair Chest: No notable deformities Lungs CTA bilaterally. No wheezes or rhonchi. CV: Regular rate and rhythm. S1-S2 normal. No murmurs rubs or gallops. Abdomen: (+) BS. Soft, nontender, nondistended. No rebound no guarding. Extremities: No clubbing cyanosis or edema. Distal pulses palpable and equal bilaterally Procedure 11/21/2024 Procedure: Upper GI endoscopy Indications: Acute post hemorrhagic anemia, Melena Impression: - Small hiatal hernia. - Erythematous mucosa in the greater curvature of the gastric body and antrum. Biopsied. - Duodenal ulcer with a nonbleeding visible vessel (Giancarlo Class IIa). Injected. Treated with bipolar cautery. - Erythematous duodenopathy. Recommendation: - Return patient to [facility] for [facility] care. - Soft diet for 1 week. - Await pathology results. - Use Protonix (pantoprazole) 40 mg PO BID for 3 months then decrease to once daily indefinitely - No ibuprofen, naproxen, or other non-steroidal anti-inflammatory drugs. - Monitor one more night, if Hgb stable in am then okay to discharge home tomorrow. Lab/Radiology/Diagnostic Review: ECG 12 lead Result Date: 11/20/2024 Narrative: Vent Rate: 110 bpm RR Interval: 542 msec LA Interval: 158 msec QRS Duration: 80 msec QT Interval: 307 msec QTC Interval: 372 msec P-R-T Henderson: 82 - 91 - 61 degrees IMPRESSION: SINUS TACHYCARDIA BORDERLINE RIGHT AXIS DEVIATION [QRS AXIS > 90] ABNORMAL RHYTHM ECG NO CHANGE FROM PREVIOUS TRACING NOTED Electronically Signed By: Terrell Campbell MD CT Chest PE (CTA) Abdomen Pelvis W Contrast Result Date: 11/19/2024 IMPRESSION: No evidence of pulmonary embolus. Small hiatal hernia. Hepatic steatosis. Diverticulosis without diverticulitis. CT Head WO Contrast Result Date: 11/19/2024 IMPRESSION: No acute intracranial findings. CT Cervical Spine WO Contrast Result Date: 11/19/2024 IMPRESSION: Multilevel degenerative change in the cervical spine. No CT evidence of cervical spine fracture. Current Facility-Administered Medications Medication Dose Route Frequency Provider Last Rate Last Admin [Held by Provider] amLODIPine (NORVASC) tablet 10 mg 10 mg oral Daily Namita Montero MD ascorbic acid (VITAMIN C) tablet/chewable tablet 500 mg 500 mg oral Daily Namita Montero MD 500 mgat 11/20/24 1322 [Held by Provider] aspirin enteric coated tablet 81 mg 81 mg oral Daily Namita Montero MD [Held by Provider] chlorthalidone (HYGROTON) tablet 25 mg 25 mg oral Daily Namita Montero MD cholecalciferol (VITAMIN D-3) tablet 2,000 Units 2,000 Units oral Daily Namita Montero MD 2,000 Units at 11/20/24 1321 enoxaparin (LOVENOX) syringe 30 mg 30 mg subcutaneous Daily-2100 ModestoNicolas jason MD EPINEPHrine syringe (ADRENALIN) 0.1 mg/mL 1 mg 1 mg other Once Fco Vivar MD ezetimibe (ZETIA) tablet 10 mg 10 mg oral Daily Namita Montero MD 10 mg at 11/20/24 1321 [Held by Provider] lisinopriL (PRINIVIL,ZESTRIL) tablet 10 mg 10 mg oral Daily Namita Montero MD loratadine (CLARITIN) tablet 10 mg 10 mg oral Daily Namita Montero MD pantoprazole (PROTONIX) 40 mg in sodium chloride 0.9% 10 mL IV Syringe 40 mg intravenous BID Namita Montero MD 40 mg at 11/21/24 0837 PARoxetine (PAXIL) tablet 10 mg 10 mg oral Daily Namita Montero MD 10 mg at 11/20/24 1321 sodium chloride 0.9% infusion 30 mL/hr intravenous Continuous Fco Vivar MD Stopped at 11/21/24 1432 Assessment/Plan Principal Problem: Acute upper GI bleed Active Problems: Acute blood loss anemia Upper GI bleed - Hemoglobin dropped from baseline of 12.2 (06/15/2024) to 8.1, 8.4 after 1 unit packed red cells. - Hemoglobin 8.9 this morning. - Status post EGD which showed duodenal ulcer with a nonbleeding visible vessel, s/p injection Recommendation: - Soft diet for 1 week. - Protonix (pantoprazole) 40 mg PO BID for 3 months then decrease to once daily indefinitely - No ibuprofen, naproxen, or other non-steroidal anti-inflammatory drugs. - Plan monitor overnight and discharge home tomorrow morning if hemoglobin remains stable - Transfuse for hemoglobin less than 7 HTN Home medications on hold: amLODIPine 10 mg Po daily aspirin 81 mg PO daily chlorthalidone (HYGROTON) 25 mg tablet po daily lisinopriL (PRINIVIL,ZESTRIL) 40 mg PO daily Blood pressure has been rising, currently 162/76 postprocedure. - Will resume lisinopril now. Resume amlodipine in the morning. HLD ezetimibe (ZETIA) 10 mg tablet po daily rosuvastatin (CRESTOR) 5 mg PO daily Okay to resume cholecalciferol (VITAMIN D3) 2,000 unit capsule Po daily fexofenadine (MELIDA) 180 mg tablet po daily PARoxetine (PAXIL) 10 mg tablet po daily ascorbic acid (VITAMIN C) 500 mg tablet Hospital bundle - Protonix increased to 40 mg p.o. b.i.d. - Resume soft diet - No lovenox Dispo: Anticipate home tomorrow if hemoglobin stable Full Code MDM: Moderate Voice recognition software MModal Fluency Direct may have been used to dictate and transcribe this document. Pediatric Dental Hygienist variances may occur. Despite proofreading, typographical errors may occur. [employer] * Madhavi Chan, PT - 11/21/2024 4:33 PM CST Physical Therapy INITIAL EVALUATION PATIENT'S NAME:Lori Burns :1940 AGE:83 y.o. 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 No pertinent surgical history. SUBJECTIVE LIVES WITH: alone LIVING ENVIRONMENT: house with 3 steps to enter and then steps to basement laundry with handrails PRIOR LEVEL OF FUNCTION: independent with bathing, dressing, cooking and cleaning EQUIPMENT OWNED: no DME EQUIPMENT USED: no DMe FALL HISTORY: reports a collapse with dizziness before coming SOCIAL SUPPORTS: dtr is close PATIENT/FAMILY GOAL: NA MENTAL STATUS/ORIENTATION: Alert and oriented x4 OBJECTIVE PRECAUTIONS: fall risk APPEARANCE/POSTURE: supine in bed with no lines PAIN: Pre-therapy pain level: 0/10 Pain location: NA Pain intervention: NA Post-therapy pain level/response to intervention: 0/10 LE ASSESSMENTS: Right LE ROM: WFL Left LE ROM: WFL Right LE strength: 4/5 Left LE strength: 4/5 Coordination: not tested Tone: WFL MOBILITY: Bed mobility: supine to sit with independence Transfers: sit to stand with independence Ambulation: Distance: 200' Assistive device: no assistive device Level of assist: independent Deviations: occasional wide SHELLI Stairs: Number of steps: 4 Assistive device: one hand hold and one railing Level of assist: independent Balance/Special Tests: Static sitting balance: good Dynamic sitting balance: good Static standing balance: good Dynamic standing balance: good 6 CLICK: Basic Mobility - 6 Click How much difficulty does the patient have: Turning over in bed: None How much difficulty does the patient currently have: Sitting down and standing up from a chair witharms?: None How much difficulty does the patient have: Moving from lying on back to sitting on the side of the bed?: None How much difficulty does the patient have: Moving to and from a bed to a chair including wheelchair?: None How much help does the patient currently need: Walk in hospital room?: None How much help from another person does the patient currently need: Climbing 3-5 steps with a railing?: None Total 6 Click Score (range 6-24): 24 APPEARANCE/POSTURE (end of session): sitting in bedside chair EDUCATION: patient educated on benefits of sitting up in chair RESPONSE TO EDUCATION: verbalizes understanding ASSESSMENT PROBLEM LIST: no deficits noted BARRIERS TO LEARNING: NA BARRIERS TO DISCHARGE: NA REHAB POTENTIAL/PROGNOSIS: good PLAN RECOMMENDATIONS: home with intermittent assist TREATMENT PLAN/INTERVENTIONS: initial discharge, independent with mobility FREQUENCY: one time visit EQUIPMENT RECOMMENDATIONS: NA If this is the last note, please consider this the discharge summary. [employer] documented in this encounter H&P Notes * Namita Montero MD - 11/20/2024 7:52 AM CST /History and Physical Date of Service: 11/20/2024 Primary Care Physician: Kevyn Cortés MD [phone] CHIEF COMPLAINT: Patient is a 83 y.o. female with a PMHx significant for HTN, HLD, DM2. Patient presents to the ER with reports of weakness. History of present illness Patient reports that she had been feeling weak and dizzy for the past several days prior to admission, worse with standing. She also reports feeling short of breath on short walking. She also reported some black stools, no bright red blood stools. No stomach pain whatsoever no nausea vomiting no headache and no static chest pain On the day of admission, patient experienced a fall with a minor hit to the back of the head. The dizziness is exacerbated by standing and walking. The patient also reports feeling short of breath. Patient was seen in [facility] on November 11, 2024 for rash and was treated with 7 day prednisone taper starting at 30 mg and decreasing to 10 mg over 7 days. Patient states rash has resolved. In there ER, patient's labs were notable for Hb (baseline 12.2 on 06/15/2024) She was transfused 1 units PRBC with improvement of hb to 8.4. 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 No pertinent surgical history./ (Not in a hospital admission) No Known Allergies Social History Tobacco Use Smoking status: Never Smokeless tobacco: Never Substance and Sexual Activity Drug use: Never Sexual activity: None Alcohol Use: Not At Risk (02/03/2022) AUDIT-C Frequency of Alcohol Consumption: 2-3 times a week Average Number of Drinks: 1 or 2 Frequency of Binge Drinking: Never Recent Concern: Alcohol Use - Alcohol Misuse (01/27/2022) AUDIT-C Frequency of Alcohol Consumption: 2-4 times a month Average Number of Drinks: 1 or 2 Frequency of Binge Drinking: Monthly Family History Problem Relation Age of Onset Stroke Maternal Grandmother Stroke; Review of Systems: Review of Systems Constitutional: Positive for fatigue. HENT: Negative. Eyes: Negative. Respiratory: Negative for cough, choking and chest tightness. Cardiovascular: Negative. Gastrointestinal: Negative. Endocrine: Negative. Genitourinary: Negative. Musculoskeletal: Negative. Allergic/Immunologic: Negative. Neurological: Positive for dizziness and weakness. Psychiatric/Behavioral: Negative. Breast: Negative. OBJECTIVE: Vitals: Arrival Vitals Temp 11/19/241742 36 ??C (96.8 ??F) Pulse 11/19/241742 94 Resp 11/19/241742 16 BP 11/19/241742 (!) 92/42 SpO2 11/19/241742 100 % Temp src 11/19/241742 Temporal Heart Rate Source -- Patient Position 11/19/242029 Lying BP Location 11/19/242029 Right arm FiO2 (%) -- Most Recent : Vitals: 11/20/24 0030 11/20/24 0100 11/20/24 0115 11/20/24 0740 BP: 141/72 156/59 136/57 (!) 131/36 Pulse: 81 66 69 76 Resp: 16 18 Temp: 36.1 ??C (97 ??F) TempSrc: Oral SpO2: 100% 100% 100% 100% Weight: Height: I/O last 2 completed shifts: In: 540 [Blood:540] Out: - No intake/output data recorded. Physical Exam General: Awake, NAD, frail appearing, thin calm, conversant. Up in bedside chair HEENT: PERRLA, EOMI. Non injected sclera Neck: supple, no JVD, No LAD, No bruits Chest: No notable deformities Lungs CTA bilaterally. No wheezes or rhonchi. Cardiovascular: Regular rate and rhythm. S1-S2 normal. No murmurs rubs or gallops. Abdomen: Positive bowel sounds. Soft, nontender, nondistended. No rebound no guarding. No peritoneal sign Extremities: No clubbing cyanosis or edema. Distal pulses palpable and equal bilaterally Musculoskeletal, no joint tenderness. Full range of motion Skin: No rashes or lesions Lab/Radiology/Diagnostic Review: Recent Results (from the past 24 hours) Comprehensive metabolic panel Collection Time: 11/19/24 5:51 PM Result Value Ref Range Sodium 133 (L) 135 - 145 mmol/L Potassium, pl 5.3 (H) 3.3 - 4.9 mmol/L Chloride 95 (L) 97 - 110 mmol/L CO2 21 (L) 22 - 32 mmol/L Anion gap 16 (H) 2 - 15 mmol/L BUN 79 (H) 6 - 25 mg/dL Creatinine 1.34 (H) 0.60 - 1.10 mg/dL Glucose 131 70 - 199 mg/dL Calcium 10.7 (H) 8.5 - 10.3 mg/dL Bilirubin, total <0.2 0.1 - 1.2 mg/dL Protein, pl 6.3 (L) 6.5 - 8.5 g/dL Albumin 4.2 3.5 - 5.0 g/dL Alk phos 35 (L) 40 - 130 Units/L ALT 19 7 - 45 Units/L AST 26 10 - 45 Units/L CBC with auto differential Collection Time: 11/19/24 5:51 PM Result Value Ref Range WBC 12.8 (H) 3.8 - 9.9 K/cumm Hgb 8.1 (L) 11.9 - 15.5 g/dL Hct 23.8 (L) 35.6 - 45.5 % Plt 247 150 - 400 K/cumm MPV 11.7 9.1 - 12.3 fL RBC 2.41 (L) 3.90 - 5.20 M/cumm MCV 98.8 (H) 81.3 - 96.4 fL MCH 33.6 (H) 27.1 - 33.3 pg MCHC 34.0 32.3 - 35.7 g/dL RDW CV 12.0 11.1 - 14.9 % RDW SD 43.4 35.7 - 48.1 fL NRBC abs 0.00 0.00 - 0.01 K/cumm Troponin T high-sensitivity series (baseline, 2hr, 4hr, 6hr) Collection Time: 11/19/24 5:51 PM Result Value Ref Range Trop T hs 25 (H) <=14 ng/L Differential, auto Collection Time: 11/19/24 5:51 PM Result Value Ref Range Neutrophil abs 10.0 (H) 1.5 - 6.5 K/cumm Imm gran abs 0.1 0.0 - 0.1 K/cumm Lymphocyte abs 1.5 0.8 - 3.3 K/cumm Monocyte abs 1.2 (H) 0.2 - 0.8 K/cumm Eosinophil abs 0.0 0.0 - 0.5 K/cumm Basophil abs 0.0 0.0 - 0.1 K/cumm Neutrophil pct 78.0 % Imm gran pct 0.6 % Lymphocyte pct 11.9 % Monocyte pct 9.2 % Eosinophil pct 0.1 % Basophil pct 0.2 % eGFR Collection Time: 11/19/24 5:51 PM Result Value Ref Range eGFR 40 (L) >=60 mL/min/1.73 m2 ABO / Rh Confirmation Testing Collection Time: 11/19/24 5:51 PM Result Value Ref Range ABO/Rh Confirmation A Positive Troponin T high-sensitivity 2-hour Collection Time: 11/19/24 8:29 PM Result Value Ref Range Trop T hs 28 (H) <=14 ng/L Trop T hs delta 3 ng/L Trop T hs interp Insignificant Iron profile w/ IBC Collection Time: 11/19/24 9:17 PM Result Value Ref Range Iron 70 35 - 145 mcg/dL TIBC 275 250 - 400 mcg/dL Transferrin saturation 25 20 - 50 % Thyroid Function [place] Collection Time: 11/19/24 9:17 PM Result Value Ref Range TSH 2.37 0.30 - 4.20 mcIUnit/mL ABO/Rh Collection Time: 11/19/24 9:17 PM Result Value Ref Range ABO/Rh A Positive Antibody screen Collection Time: 11/19/24 9:17 PM Result Value Ref Range Donna, indirect, Gel Interpretation Negative ABSC Crossmatch Collection Time: 11/19/24 9:17 PM Result Value Ref Range Crossmatch Compatible Unit number for crossmatch [id number] Prepare RBC: 1 Units Collection Time: 11/19/24 10:18 PM Result Value Ref Range Units requested 1 Units requested Ready Unit Number [id number] Product code [id number] Blood Expiration Date [id number] Product Blood Type (for scanning) 6200 Product Blood Type APOS Dispense Status DISPENSED Troponin T high-sensitivity 6-hour Collection Time: 11/20/24 12:26 AM Result Value Ref Range Trop T hs See Comment <=14 Trop T hs interp See Comment CBC with auto differential Collection Time: 11/20/24 5:20 AM Result Value Ref Range WBC 7.6 3.8 - 9.9 K/cumm Hgb 8.4 (L) 11.9 - 15.5 g/dL Hct 25.0 (L) 35.6 - 45.5 % Plt 138 (L) 150 - 400 K/cumm MPV 11.0 9.1 - 12.3 fL RBC 2.54 (L) 3.90 - 5.20 M/cumm MCV 98.4 (H) 81.3 - 96.4 fL MCH 33.1 27.1 - 33.3 pg MCHC 33.6 32.3 - 35.7 g/dL RDW CV 13.3 11.1 - 14.9 % RDW SD 47.8 35.7 - 48.1 fL NRBC abs 0.00 0.00 - 0.01 K/cumm Comprehensive metabolic panel Collection Time: 11/20/24 5:20 AM Result Value Ref Range Sodium 136 135 - 145 mmol/L Potassium, pl 4.1 3.3 - 4.9 mmol/L Chloride 105 97 - 110 mmol/L CO2 22 22 - 32 mmol/L Anion gap 9 2 - 15 mmol/L BUN 69 (H) 6 - 25 mg/dL Creatinine 1.27 (H) 0.60 - 1.10 mg/dL Glucose 113 70 - 199 mg/dL Calcium 9.5 8.5 - 10.3 mg/dL Bilirubin, total 0.4 0.1 - 1.2 mg/dL Protein, pl 5.2 (L) 6.5 - 8.5 g/dL Albumin 3.6 3.5 - 5.0 g/dL Alk phos 32 (L) 40 - 130 Units/L ALT 16 7 - 45 Units/L AST 24 10 - 45 Units/L Differential, auto Collection Time: 11/20/24 5:20 AM Result Value Ref Range Neutrophil abs 4.6 1.5 - 6.5 K/cumm Imm gran abs 0.0 0.0 - 0.1 K/cumm Lymphocyte abs 1.8 0.8 - 3.3 K/cumm Monocyte abs 1.1 (H) 0.2 - 0.8 K/cumm Eosinophil abs 0.1 0.0 - 0.5 K/cumm Basophil abs 0.0 0.0 - 0.1 K/cumm Neutrophil pct 60.2 % Imm gran pct 0.4 % Lymphocyte pct 23.6 % Monocyte pct 14.7 % Eosinophil pct 0.8 % Basophil pct 0.3 % eGFR Collection Time: 11/20/24 5:20 AM Result Value Ref Range eGFR 42 (L) >=60 mL/min/1.73 m2 Manual Differential Collection Time: 11/20/24 5:20 AM Result Value Ref Range Differential Auto Neutrophil abs 4.6 1.5 - 6.5 K/cumm Imm gran abs 0.0 0.0 - 0.1 K/cumm Lymphocyte abs 1.8 0.8 - 3.3 K/cumm Monocyte abs 1.1 (H) 0.2 - 0.8 K/cumm Eosinophil abs 0.1 0.0 - 0.5 K/cumm Basophil abs 0.0 0.0 - 0.1 K/cumm Neutrophil pct 60.2 % Imm gran pct 0.4 % Lymphocyte pct 23.6 % Monocyte pct 14.7 % Eosinophil pct 0.8 % Basophil pct 0.3 % RBC morphology Consistent with RBC Indicies Anisocytosis Slight (A) Microcytes 3-7/HPF (A) Platelet estimate Adequate POCT glucose Collection Time: 11/20/24 7:37 AM Result Value Ref Range Glucose, POC 143 70 - 199 mg/dL ECG 12 lead Result Date: 11/20/2024 Narrative: Vent Rate: 110 bpm RR Interval: 542 msec LA Interval: 158 msec QRS Duration: 80 msec QT Interval: 307 msec QTC Interval: 372 msec P-R-T Henderson: 82 - 91 - 61 degrees IMPRESSION: SINUS TACHYCARDIA BORDERLINE RIGHT AXIS DEVIATION [QRS AXIS > 90] ABNORMAL RHYTHM ECG NO CHANGE FROM PREVIOUS TRACING NOTED Electronically Signed By: Terrell Campbell MD CT Chest PE (CTA) Abdomen Pelvis W Contrast Result Date: 11/19/2024 IMPRESSION: No evidence of pulmonary embolus. Small hiatal hernia. Hepatic steatosis. Diverticulosis without diverticulitis. CT Head WO Contrast Result Date: 11/19/2024 IMPRESSION: No acute intracranial findings. CT Cervical Spine WO Contrast Result Date: 11/19/2024 IMPRESSION: Multilevel degenerative change in the cervical spine. No CT evidence of cervical spine fracture. ASSESSMENT/PLAN: Principal Problem: Acute upper GI bleed Resolved Problems: No resolved hospital problems. Anemia Dark stool - Rule out upper GI bleed. - may have been exacerbated by ASA, prednisone - GI consulted, input appreciated. Ddx includes but is not limited to PUD, gastritis, esophagitis, malignancy. - Plan for urgent EGD tomorrow; NPO at midnight. - Continue 40 mg Protonix IV b.i.d.. - Avoid NSAIDs and anticoagulation use. - Continue to monitor hemoglobin with daily CBC and transfuse if less than 7. HTN Home medications on hold: amLODIPine 10 mg Po daily aspirin 81 mg PO daily chlorthalidone (HYGROTON) 25 mg tablet po daily lisinopriL (PRINIVIL,ZESTRIL) 40 mg PO daily HLD ezetimibe (ZETIA) 10 mg tablet po daily rosuvastatin (CRESTOR) 5 mg PO daily Okay to resume cholecalciferol (VITAMIN D3) 2,000 unit capsule Po daily fexofenadine (MELIDA) 180 mg tablet po daily PARoxetine (PAXIL) 10 mg tablet po daily ascorbic acid (VITAMIN C) 500 mg tablet Hospital bundle - Protonix - regular diet, NPO at PA - No lovenox due to possible UGIB Dispo: inpatient Full Code My total encounter time on 11/20/2024 was 55 minutes which was spent in the activities documented in the note. This includes time spent prior to the visit and after the visit in direct care of the patient. This time does not include time spent in any separately reportable services. Voice recognition software ReferMe Direct may have been used to dictate and transcribe this document. Pediatric Dental Hygienist variances may occur. Despite proofreading, typographical errors may occur. Namita Montero MD 11/20/2024 7:53 AM [employer] documented in this encounter Procedure Notes * Fco Vivar MD - 11/21/2024 1:52 PM CSTAssociated Order(s): EGD Digestive [facility] Patient Name: Lori Burns Procedure Date: 11/21/2024 1:52 PM Date of : 1940 Admit Type: Inpatient Age: 83 Gender: Female Attending MD: Fco Vivar M.D. Room: [facility] 2 Note Status: Finalized Patient Profile: This is an 83 year old female hx of HTN, HLD, DM2 presented to the ER for weakness and melena. Hgb 8.1, down from 12.4 from 06/2024. No recurrence of bleeding since admission, no active GI issues. Hgb has been stable 8.9 after 1 unit. She takes ibuprofen several times a week for joint pain. Procedure: Upper GI endoscopy Indications: Acute post hemorrhagic anemia, Melena Referring MD: Kevyn Cortés M.D. Providers: Fco Vivar M.D. Impression: - Small hiatal hernia. - Erythematous mucosa in the greater curvature of the gastric body and antrum. Biopsied. - Duodenal ulcer with a nonbleeding visible vessel (Giancarlo Class IIa). Injected. Treated with bipolar cautery. - Erythematous duodenopathy. Recommendation: - Return patient to [facility] for ongoing care. - Soft diet for 1 week. - [...] Prior to the procedure, a History and Physical was performed, and patient medications and allergies were reviewed. The patient is competent. The risks and benefits of the procedure and the sedation options and risks were discussed with the patient. All questions were answered and informed consent was obtained. Patient identification and proposed procedure were verified by the physician, the bone plant supervisor and the commercial maintenance technician in the endoscopy suite. Mental Status Examination: normal. Prophylactic Antibiotics: The patient does not require prophylactic antibiotics. Prior Anticoagulants: The patient has taken no anticoagulant or antiplatelet agents. After reviewing the risks and benefits, the patient was deemed in satisfactory condition to undergo the procedure. The anesthesia plan was to use monitored anesthesia care (MAC). Immediately prior to administration of medications, the patient was re-assessed for adequacy to receive sedatives. The heart rate, respiratory rate, oxygen saturations, blood pressure, adequacy of pulmonary ventilation, and response to care were monitored throughout the procedure. The physical status of the patient was re-assessed after the procedure. The benefits, risks, and alternatives to the procedure and sedation were discussed and informed consent was obtained. The scope was passed under direct vision. The Endoscope [id number] was introduced through the mouth, and advanced to the second part of duodenum. The upper GI endoscopy was accomplished without difficulty. The patient tolerated the procedure well. Findings: A small 1-2 cm hiatal hernia was present. The exam of the esophagus was otherwise normal. Mildly erythematous mucosa was found on the greater curvature of the gastric body and in the gastric antrum. Biopsies were taken with a cold forceps for Helicobacter pylori testing. One cratered duodenal ulcer with a nonbleeding visible vessel (Giancarlo Class IIa) was found in the duodenal [...] 1:52 PM Procedure Code(s): --- Professional --- 04693, 59, Esophagogastroduodenoscopy, flexible, transoral; with control of bleeding, any method --- Technical --- 61707, 59, Esophagogastroduodenoscopy, flexible, transoral; with control of bleeding, any method Diagnosis Code(s): --- Professional --- D62, Acute posthemorrhagic anemia K92.1, Melena (includes Hematochezia) --- Technical --- D62, Acute posthemorrhagic anemia K92.1, Melena (includes Hematochezia) CPT copyright 2020 [employer]. All rights reserved. The codes documented in this report are preliminary and upon alteration hand review may be revised to meet current compliance requirements. Recognized by the [employer] for promoting quality in endoscopy [employer] WORK[employer] documented in this encounter Consult Notes * Lisette Puga PA - 11/20/2024 10:10 AM CST Gastroenterology Inpatient Note Reason for consult: weight loss 20 lbs 1 month, black stools, low hct Date of visit: 11/20/2024 Person requesting consult: Dr. Salvador Subjective HPI: Lori Burns is a 83 y.o. female with a past medical history as noted below who presentedto the ED today with concern unintentional weight loss, dizziness, weakness, dark stools. GI was consulted due to a drop in her hemoglobin. Hemoglobin low at 8.4; it was normal back in June. Shedenies any abdominal pain, nausea, vomiting, heartburn, reflux. No concern of dysphagia, constipation. Does note to some looser stools recently. CTA chest abdomen pelvis with contrast yesterday notedsmall hiatal hernia, hepatic steatosis, diverticulosis. Colonoscopy in 2004 which noted diverticulosis and hemorrhoids. She is currently on PPI b.i.d.. She is currently on Lovenox. Of note, recent prednisone use. 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 No pertinent surgical history. Patient Active Problem List Diagnosis Vitamin D deficiency Impaired fasting blood sugar Anxiety state Hyperlipidemia Essential hypertension Atopic rhinitis Carotid stenosis, bilateral Medicare annual wellness visit, subsequent Statin myopathy Arthritis of right hip Primary osteoarthritis of right hip Advance care planning Stage 3a chronic kidney disease (HCC) Acute upper GI bleed No current facility-administered medications on file prior to encounter. Current Outpatient Medications on File Prior to Encounter Medication Sig Dispense Refill amLODIPine (NORVASC) 10 mg tablet TAKE 1 TABLET(10 MG) BY MOUTH DAILY 90 tablet 3 amoxicillin (AMOXIL) 500 mg tablet/capsule Take 4 tabs by mouth 1 hour before procedure (Patient taking differently: Take 1 tablet/capsule (500 mg total) by mouth as needed Take 4 tabs by mouth 1 hour before procedure) 4 tablet/capsule 2 aspirin 81 mg enteric coated tablet Take 1 tablet (81 mg total) by mouth daily chlorthalidone (HYGROTON) 25 mg tablet TAKE 1 TABLET BY MOUTH EVERY DAY 90 tablet 3 cholecalciferol (VITAMIN D3) 2,000 unit capsule take 1 by Oral route every day 0 0 ezetimibe (ZETIA) 10 mg tablet TAKE 1 TABLET(10 MG) BY MOUTH DAILY 90 tablet 2 fexofenadine (MELIDA) 180 mg tablet take 1 tablet (180MG) by oral route every day 0 lisinopriL (PRINIVIL,ZESTRIL) 40 mg tablet TAKE 1 TABLET(40 MG) BY MOUTH DAILY 90 tablet 1 PARoxetine (PAXIL) 10 mg tablet TAKE 1 TABLET(10 MG) BY MOUTH DAILY 90 tablet 3 ascorbic acid (VITAMIN C) 500 mg tablet,chewable Take 1 tablet/chew tab (500 mg total) by mouth daily 30 tablet/chew tab 0 [DISCONTINUED] predniSONE (DELTASONE) 10 mg tablet Take 3 tabs days 1 & 2, 2 tabs days 3 & 4, 1 tab days 5-7. (Patient not taking: Reported on 11/19/2024) 13 tablet 0 [DISCONTINUED] rosuvastatin (CRESTOR) 5 mg tablet Take 1 tablet (5 mg total) by mouth daily [DISCONTINUED] TiZANidine (ZANAFLEX) 2 mg capsule Take 1 capsule (2 mg total) by mouth 3 (three) times a day [DISCONTINUED] triamcinolone (KENALOG) 0.1 % ointment Apply topically 2 (two) times a day for 10 days Avoid face and genital area (Patient not taking: Reported on 11/19/2024) 80 g 1 Social History Tobacco Use Smoking status: Never Smokeless tobacco: Never Substance and Sexual Activity Drug use: Never Sexual activity: None Alcohol Use: Not At Risk (11/20/2024) AUDIT-C Frequency of Alcohol Consumption: 2-3 times a week Average Number of Drinks: 1 or 2 Frequency of Binge Drinking: Never Family History Problem Relation Age of Onset Stroke Maternal Grandmother Stroke; No Known Allergies Review of Systems Constitutional: +activity change, weakness HENT: Negative for dysphagia Respiratory: Negative for shortness of breath Cardiovascular: Negative for chest pain. Gastrointestinal: See HPI for full review of this system. No heartburn or reflux. No nausea or vomiting. No constipation. No rectal pain or bleeding. No abdominal pain or cramping. +dark loose stool Psychiatric/Behavioral: The patient is not nervous/anxious. Objective Intake/Output last 3 shifts: I/O last 3 completed shifts: In: 540 [Blood:540] Out: - Lab/Radiology/Diagnostic Review: Recent Labs Lab Units 11/20/24 0737 11/20/24 0520 11/19/24 1751 WBC K/cumm -- 7.6 12.8* HEMOGLOBIN g/dL -- 8.4* 8.1* HEMATOCRIT % -- 25.0* 23.8* PLATELETS K/cumm -- 138* 247 SODIUM mmol/L -- 136 133* POTASSIUM PLASMA mmol/L -- 4.1 5.3* CHLORIDE mmol/L -- 105 95* CO2 mmol/L -- 22 21* ANIONGAP mmol/L -- 9 16* GLUCOSE mg/dL -- 113 131 POC GLUCOSE MONITOR mg/dL 143 -- -- BUN SERUM mg/dL -- 69* 79* CREATININE mg/dL -- 1.27* 1.34* CALCIUM mg/dL -- 9.5 10.7* ALBUMIN g/dL -- 3.6 4.2 BILIRUBIN TOTAL mg/dL -- 0.4 <0.2 ALK PHOS Units/L -- 32* 35* ALT Units/L -- 16 19 AST Units/L -- 24 26 Results for orders placed during the hospital encounter of 11/19/24CT Chest PE (CTA) Abdomen PelvisW ContrastNarrativeEXAM DESCRIPTION: CT CHEST PE (CTA) ABDOMEN PELVIS W CONTRASTREASON FOR STUDY: on prednisone with hematocrit drop todayweak and dizzy on standing and short of breath on short walking she had notnoticed that she has become fairly pale. 10 lb weight loss with out effort.TECHNIQUE: CT angiogram of the chest with routine abdomen and pelvis performedwith intravenous and without oralcontrast using helical scanning techniquewith dynamic intravenous contrast injection. Reconstructedcoronal andsagittal MPR images reviewed. All images stored on PACS. 3D MIP images of thechest rendered on scanning unit and reviewed at time of interpretation.Automated exposure control was used as adose optimization technique for thisexamination.CONTRAST TYPE/DOSE: 100mL of IOVERSOL 350 MG IODINE/ML INTRAVENOUS SYRINGEinjected via intravenousCOMPARISON: NoneFINDINGS:CHESTCHEST VASCULATURE: No acute pulmonary thromboembolism.LUNGS: No nodules or masses. No pneumonia.PLEURA: No effusion. No pneu mothorax.MEDIASTINUM/CHEYANNE: No identified masses or abnormal nodes. Small hiatalhernia.HEART: Heart size is normal with no pericardial effusion.AXILLA: No adenopathy.CHEST WALL: No masses. No subcutaneous air.HARDWARE/LINES/TUBES: None.MUSCULOSKELETAL CHEST: No significant abnormality.ABDOMEN/PELVISLIVER: Decreased attenuation as seen with fibrofatty changes.GALLBLADDER: No stones identified. No wall thickening or inflammatorychanges.BILE DUCTS: No intrahepatic or extrahepatic ductal dilatation.SPLEEN: Normal size. No focal lesions. Calcified granulomas.PANCREAS: No identified cystic or solid masses. No significantcalcifications. No adjacent inflammation or peripancreatic fluid collections.Pancreatic duct not dilated.ADRENALS: Normal.KIDNEYS/URINARY TRACT: No identified significant cystic or solid masses. Novisualized stones. No hydronephrosis or hydroureter. Symmetric enhancement.Urinary bladder is unremarkable.GI: No dilated bowel loops. No obvious wall thickening. Normal appendix.Scattered diverticular disease without diverticulitis.PERITONEUM: No ascites or free air.RETROPERITONEUM: No mass or adenopathy.REPRODUCTIVE: No significant abnormality.VASCULATURE ABDOMEN: Atherosclerotic disease in the aorta and iliacsMUSCULOSKELETAL ABDOMEN PELVIS: Multilevel degenerative changes are presentwithout fracture. No concerning lesions are present. Right hip arthroplastywith resulting artifact.OTHER: No significant abnormality.ImpressionNo evidence of pulmonary embolus.Small hiatal he rnia.Hepatic steatosis.Diverticulosis without diverticulitis.THIS IS AN ELECTRONICALLY VERIFIED FINAL REPORT11/19/2024 11:21 PM- Electronically signed by Adriano Maradiaga M.D.KT: KTD: 11/19/2024 11:21 PMT: 11/19/2024 11:21 PMReport ID: [id number] Location: [place] [address] Current Medications: Current Facility-Administered Medications: enoxaparin (LOVENOX) syringe 30 mg, 30 mg, subcutaneous, Daily-2100, Nicolas Salvador MD HYDROmorphone (PF) (DILAUDID) injection 0.2 mg, 0.2 mg, intravenous, Q3H PRN, Nciolas Salvador MD pantoprazole (PROTONIX) 40 mg in sodium chloride 0.9% 10 mL IV Syringe, 40 mg, intravenous, BID, Nicolas Salvador MD, 40 mg at 11/20/24 1006 sodium chloride 0.9% IVPB 0-250 mL, 0-250 mL, intravenous, Once, Nicolas Salvador MD, Held at 11/20/24 0312 Vital signs in last 24 hours: Temp: [36 ??C (96.8 ??F)-36.5 ??C (97.7 ??F)] 36.4 ??C (97.5 ??F) Pulse: [66-100] 78 Resp: [15-35] 20 BP: (76-156)/(34-83) 113/34 Physical Exam Constitutional: General: No acute distress. Appearance: Not ill-appearing. HENT: Head: Normocephalic and atraumatic. Mouth/Throat: Mouth: Mucous membranes are moist. Eyes: General: No scleral icterus. Cardiovascular: Rate and Rhythm: Normal rate Pulmonary: Effort: Pulmonary effort is normal. Abdominal: General: Bowel sounds are normal. Palpations: Abdomen is soft and non-distended. Tenderness: There is no abdominal tenderness. There is no guarding or rebound. Skin: General: Skin is warm and dry. Coloration: Skin is not jaundiced. Findings: No rash. Neurological: Mental Status: Pt is alert. Psychiatric: Mood and Affect: Mood normal. Behavior: Behavior normal. Gastroenterology Impression/Plan/Recommendations: Anemia Dark stool Acute anemia with recent episode of loose dark stool. There is concern for upper GI bleeding. Ddx includes but is not limited to PUD, gastritis, esophagitis, malignancy. -Patient ate breakfast, so will plan for urgent EGD tomorrow; NPO at midnight. -Continue 40 mg Protonix b.i.d.. -Avoid NSAIDs and anticoagulation use. -Continue to monitor hemoglobin with daily CBC and transfuse if less than 7. Case discussed with my collaborating physician, Dr. Vivar-Gastroenterology. Voice recognition software [employer] Direct was used dictate and transcribe this document. Pediatric Dental Hygienist variances may occur. Despite proofreading, typographical errors may occur. BRITTON Peña Cosigned by Fco Vivar MD at 11/20/2024 9:56 PM [employer] WORKER [employer] WORK[employer] WORK[employer] documented in this encounter Nursing Notes * Stefanie Lainez RN - 11/22/2024 1:57 PM CST Patient verbalizes understanding of d/c instructions and when to seek higher level of care. Patienthas no questions or concerns at this time. Patient's prescriptions sent to pharmacy of choice. Patient states that she knows she has to pick these up from her pharmacy. Patient picked up in private vehicle in patient pickup area. [employer] WORK[employer] documented in this encounter ED Notes * Nicolas Salvador MD - 11/19/2024 9:38 PM CST HPI Chief Complaint Patient presents with ??? Hypotension Patient is an 83-year-old very fit female strong and bright independent. Her weight is been stable up until about a month ago she has lost about 10 lb without trying. The past several days she has been getting weak and dizzy on standing and short of breath on short walking she had not noticed that she has become fairly pale. She does say there is some black stools no bright red blood stools however of note she was on a course of prednisone for a rash on her arms last week has no stomach pain whatsoever no nausea vomiting no headache and no static chest pain Patient History: Patient Active Problem List Diagnosis Date Noted ??? Advance care planning 06/21/2024 ??? Stage 3a chronic kidney disease (HCC) 06/21/2024 ??? Primary osteoarthritis of right hip 11/17/2021 ??? Arthritis of right hip 01/19/2021 ??? Statin myopathy 11/26/2019 ??? Medicare annual wellness visit, subsequent 05/09/2018 ??? Carotid stenosis, bilateral 04/20/2017 ??? Vitamin D deficiency 12/07/2013 ??? Impaired fasting blood sugar 09/27/2006 ??? Anxiety state 09/27/2006 ??? Hyperlipidemia 09/27/2006 ??? Essential hypertension 09/27/2006 ??? Atopic rhinitis 09/27/2006 Past Medical History: Diagnosis Date ??? 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 Diabetes mellitus (HCC) ??? Hypercholesteremia ??? Hypertension ??? Type 2 diabetes mellitus (HCC) History reviewed. No pertinent surgical history. Family History Problem Relation Age of Onset ??? Stroke Maternal Grandmother Stroke; Social History Tobacco Use ??? Smoking status: Never ??? Smokeless tobacco: Never Substance and Sexual Activity ??? Alcohol use: Yes ??? Drug use: Never ??? Sexual activity: None Social History Social History Narrative General Social History Comments: Ned Burns () would make decisions Review of Systems Review of Systems Constitutional: Positive for activity change, appetite change, fatigue and unexpected weight change. Negative for chills, diaphoresis and fever. HENT: Negative. Eyes: Negative. Respiratory: Positive for shortness of breath. Negative for cough, choking, chest tightness, wheezing and stridor. Cardiovascular: Negative. Gastrointestinal: Negative. Negative for abdominal distention, abdominal pain, anal bleeding, bloodin stool, constipation, diarrhea, nausea, rectal pain and vomiting. Endocrine: Positive for cold intolerance. Genitourinary: Negative. Negative for difficulty urinating, dyspareunia, dysuria and flank pain. Musculoskeletal: Positive for arthralgias. Negative for gait problem, joint swelling and myalgias. Allergic/Immunologic: Negative. Neurological: Positive for dizziness, weakness and light-headedness. Hematological: Negative. Psychiatric/Behavioral: Negative. Physical Exam ED Triage Vitals Temp Pulse Resp BP SpO2 11/19/24 1743 11/19/24 1743 11/19/24 1743 11/19/24 1743 11/19/24 1743 36 ??C (96.8 ??F) 94 16 (!) 92/42 100 % Temp src Heart Rate Source Patient Position BP Location FiO2 (%) 11/19/241742 -- 11/19/24202911/19/242029 -- Temporal Lying Right arm Height Height Method Weight Weight Method 11/19/24 17411/19/24 17411/19/24 17411/19/241742 1.575 m (5' 2 ) Stated 49 kg (108 lb) Stated Physical Exam Vitals and nursing note reviewed. Constitutional: General: She is not in acute distress. Appearance: Normal appearance. She is not ill-appearing, toxic-appearing or diaphoretic. Comments: Patient is fairly thin and fairly pale but otherwise happy alert nontoxic HENT: Head: Normocephalic and atraumatic. Nose: Nose normal. Mouth/Throat: Pharynx: Oropharynx is clear. No oropharyngeal exudate or posterior oropharyngeal erythema. Eyes: Extraocular Movements: Extraocular movements intact. Conjunctiva/sclera: Conjunctivae normal. Pupils: Pupils are equal, round, and reactive to light. Cardiovascular: Rate and Rhythm: Normal rate and regular rhythm. Pulses: Normal pulses. Heart sounds: Normal heart sounds. Pulmonary: Effort: Pulmonary effort is normal. No respiratory distress. Breath sounds: No stridor. Rhonchi present. No wheezing or rales. Chest: Chest wall: No tenderness. Abdominal: General: Abdomen is flat. Palpations: Abdomen is soft. Musculoskeletal: General: Normal range of motion. Cervical back: Normal range of motion and neck supple. Skin: General: Skin is warm and dry. Capillary Refill: Capillary refill takes less than 2 seconds. Neurological: General: No focal deficit present. Mental Status: She is alert. Mental status is at baseline. She is disoriented. Psychiatric: Mood and Affect: Mood normal. Behavior: Behavior normal. Thought Content: Thought content normal. Judgment: Judgment normal. MDM Medical Decision Making Differential is perhaps an ulcer GI bleed from prednisone however she had had weight loss before this an odd rashes which are somewhat concerning for tumor. Otherwise simply a GI bleed is possible however she is on basically no medicines except for a multivitamin she was on no blood thinners does not even take aspirin particularly Amount and/or Complexity of Data Reviewed Labs: ordered. Radiology: ordered. Decision-making details documented in ED Course. ECG/medicine tests: ordered. ED Course as of 11/20/2410 Time: 11/19 2057 Comment: Calcium and potassium are both up BUN creatinine also from baseline the calcium bit elevated is unusual given her age and history with new anemia she had recently on prednisone and ulcer GI bleed is not excluded at all By: Nicolas Salvador MD Time: 11/19 2057 Value: CT Chest PE (CTA) Abdomen Pelvis W Contrast Comment: (Reviewed) By: Nicolas Salvador MD Time: 11/20 8 Comment: CTA chest abdomen and pelvis shows no signs of bleeding active no PE By: Nicolas Salvador MD Time: 11/20 9 Comment: Patient has had no bloody diarrhea or black diarrhea at all since she has been here her blood pressure is going up nicely CTA chest abdomen and pelvis is unrevealing By: Nicolas Salvador MD Final diagnoses: None Nicolas Salvador MD 11/19/242145 [employer] * Rina Vallecillo, SARAH - 11/19/2024 8:38 PM CST Pt recently started on Prednisone for a rash, completed dose last night. Last night, pt up to restroom, felt dizzy, and fell. Pt reports she his the back of her head and her chin. Dark purple bruising noted to chin. Pt reports weakness and dizziness with minimal walking. Family checked BP at home and found it to be 70's/40's. EMS was called and upon their arrival, BP was normal so pt did not goto ED at that time. She went to and upon arrival, BP was low and EMS was called for transport here. A&Ox4. Family reports her speech is off like she has a lisp. Pt reports she feels like her tongue may be swollen. No new personal care products or foods that she is aware of. Rash on arms has improved with Prednisone. Rina Vallecillo RN 11/19/242040 [employer] * Rosaura Walker RN - 11/19/2024 5:42 PM CST Pt to ED for c/o hypotension. Pt reports last night she was dizzy and fell hitting her head, no LOC. Pt reports she is on blood thinners. Pt went to today and was advised to come to ED for low blood pressure. Pt reports low back pain from the fall. [employer] WORK[employer] documented in this encounter Miscellaneous Notes * Plan of Care - Lola العراقي MSW - 11/22/2024 11:20 AM CST Pt. Is being DC today 11/22/24 to home. STATISTICAL ENGINEER went over IMM with pt. And put the signed copy in pt.'schart. [employer] WORK[employer] * Plan of Care - Lisset Estevez RN - 11/22/2024 2:28 AM CST Goals: Clinical Goals for the Shift: vs stable, pain control, remain free of falls/injury [employer]ular Knife Cutter Machine Patient Centered Goal for Treatment: Discharge home. Summary: 83 yo female from home alone. Pt had EGD and was found to have an ulcer. Pt hemoglobin is stabilizing. Plan to dc home today. Pt son coming to stay home with her. [employer] WORKER * Plan of Care - Waleska Victoria RN - 11/21/2024 6:26 PM CST Problem: Discharge Planning Goal: Understanding discharge needs will improve Outcome: Progressing Problem: Fall Risk Goal: Ability to state ways to decrease the risk of falls will improve Outcome: Progressing Goal: Will remain free from falls Outcome: Progressing Goal: Will remain free from injury from falls Outcome: Progressing Problem: Cardiovascular Goal: Maintains optimal cardiac output and hemodynamic stability Outcome: Progressing Problem: Skin/Tissue Integrity Goal: Skin integrity remains intact Outcome: Progressing Problem: Musculoskeletal Goal: Return mobility to safest level of function Outcome: Progressing Problem: Gastrointestinal Goal: Will show no signs and symptoms of gastrointestinal bleeding Outcome: Progressing Goals: Clinical Goals for the Shift: vs stable, pain control, remain free of falls/injury [employer] Kn[employer] Cutter Machine Patient Centered Goal for Treatment: Discharge home. Summary: no complaints of pain. Pt had procedure without complications. Diet advanced tolerating without difficulty. Pt resting in chair, care ongoing. [employer] WORKER * Perioperative Nursing Note - Sarina Andrade RN - 11/21/2024 2:55 PM [employer] Dr. Vivar here to discuss procedure with patient. Patient may have GI soft diet diet, possible discharge home tomorrow. [employer] WORKER * Plan of Care - Lisset Estevez RN - 11/21/2024 2:49 AM CST Goals: Clinical Goals for the Shift: Pt to remain hemodynamically stable and free from injury this shift. [employer]utter Machine Patient Centered Goal for Treatment: Discharge home. Summary: 83 yo female Pt from home alone. Pt family here visiting, They are very involved in Pt care. Pt to have EGD today to assess for GI bleed. Q 6 hemoglobin continues. Plan to transfuse if < 7 [employer] WORKER documented in this encounter Plan of Treatment Pending Results Name Type Priority Associated Diagnoses Date /Time Crossmatch Lab Timed 11/19/2024 9:1 7 PM [employer] Surgical pathology Pathology and Cytology STAT Acute upper GI bleed 11/21/2024 9:41 AM [employer] WORKER Scheduled Orders Name Type Priority Associated Diagnoses Order Schedule Crossmatch Lab Timed Once for 1 Occurrences starting 11/19/2024 until 11/19/2024 Surgical pathology Pathology and Cytology Timed Acute upper GI bleed Release Upon Ordering for 1 Occurrences starting 11/21/2024 documented as of this encounter Procedures Procedure Name Priority Date/Time Associated Diagnosis Comments HEMOGLOBIN AND HEMATOCRIT Timed 2024 12:17 PM [employer] WORK[employer] POCT GLUCOSE DEVICE Routine 11/22/2024 11:36 AM [employer] WORK[employer] POCT GLUCOSE DEVICE Routine 11/22/2024 7:20 AM [employer] EGFR Routine 11/22/2024 5:49 AM [employer] WORK[employer] DIFFERENTIAL AUTO Routine 11/22/2024 5:49 AM [employer] WORK[employer] CBC WITH AUTO DIFFERENTIAL Routine 11/22 5:49 AM [employer] HEMOGLOBIN AND HEMATOCRIT Timed 2024 5:49 AM [employer] PHOSPHORUS Routine 11/22/2024 5:49 AM [employer] WORK[employer] MAGNESIUM Routine 11/22/2024 5:49 AM [employer] WORK[employer] COMPREHENSIVE METABOLIC PANEL Routine 5:49 AM [employer] WORK[employer] HEMOGLOBIN AND HEMATOCRIT Timed 2024 12:10 AM [employer] WORK[employer] POCT GLUCOSE DEVICE Routine 11/21/2024 8:25 PM [employer] WORK[employer] HEMOGLOBIN AND HEMATOCRIT Timed 2024 6:36 PM [employer] WORK[employer] POCT GLUCOSE DEVICE Routine 11/21/2024 4:31 PM [employer] WORKER EGD 11/21/2024 1:52 PM [employer] WORKER ENDO ADD ON ESOPHAGOGASTRODUODENOSCOPY REMOVAL HOT BIOPSY 11/21/2024 1:50 PM [employer] WORKER Acute upper GI bleed ESOPHAGOGASTRODUODENOSCOPY INJECTION SUBMUCOSAL 11/21/2024 1:50 PM [employer] WORKER Acute upper GI bleed HEMOGLOBIN AND HEMATOCRIT Timed 2024 11:59 AM [employer] WORKER POCT GLUCOSE DEVICE Routine 11/21/2024 11:20 AM [employer] WORKER POCT GLUCOSE DEVICE Routine 11/21/2024 7:49 AM [employer] WORK[employer] EGFR Routine 11/21/2024 5:40 AM [employer] WORKER DIFFERENTIAL AUTO Routine 11/21/2024 5:40 AM [employer] WORKER CBC WITH AUTO DIFFERENTIAL Routine 11/21 5:40 AM [employer] WORKER PHOSPHORUS Routine 11/21/2024 5:40 AM [employer] WORKER MAGNESIUM Routine 11/21/2024 5:40 AM [employer] WORKER COMPREHENSIVE METABOLIC PANEL Routine 5:40 AM [employer] POCT GLUCOSE DEVICE Routine 11/21/2024 2:10 AM [employer] HEMOGLOBIN AND HEMATOCRIT Timed 2024 12:07 AM [employer] POCT GLUCOSE DEVICE Routine 11/20/2024 8:30 PM [employer] HEMOGLOBIN AND HEMATOCRIT Timed 2024 5:33 PM [employer] POCT GLUCOSE DEVICE Routine 11/20/2024 4:32 PM [employer] HEMOGLOBIN AND HEMATOCRIT Timed 2024 12:05 PM [employer] POCT GLUCOSE DEVICE Routine 11/20/2024 11:32 AM [employer] POCT GLUCOSE DEVICE Routine 11/20/2024 7:37 AM [employer] EGFR STAT 11/20/2024 5:20 AM [employer] DIFFERENTIAL AUTO STAT 11/20/2024 5:20 AM [employer] CBC WITH AUTO DIFFERENTIAL STAT 11/20 5:20 AM [employer] MANUAL DIFFERENTIAL STAT 11/20/2024 5:20 AM [employer] COMPREHENSIVE METABOLIC PANEL STAT 5:20 AM [employer] TROPONIN T HIGH-SENSITIVITY 6-HOUR Timed 11/20/2024 12:26 AM [employer] TRANSFUSE RED BLOOD CELLS Timed 2024 10:41 PM [employer] CT CHEST PE ABDOMEN PELVIS W CONTRAST ED 11/19/2024 10:33 PM [employer] PREPARE RBC Timed 11/19/2024 10:18 PM [employer] THYROID FUNCTION CASCADE Add-On 025 9:17 PM [employer] IRON PROFILE W/ IBC STAT 11/19/2024 9:17 PM [employer] ABO/RH Timed 11/19/2024 9:17 PM [employer] CROSSMATCH Timed 11/19/2024 9:17 PM [employer] ANTIBODY SCREEN Timed 11/19/2024 9:17 PM [employer] TYPE AND SCREEN Timed 11/19/2024 9:17 PM [employer] TROPONIN T HIGH-SENSITIVITY 2-HOUR Timed 11/19/2024 8:29 PM [employer] CT CERVICAL SPINE WO CONTRAST ED 8:25 PM [employer] CT HEAD WO CONTRAST ED 11/19/2024 8:25 PM [employer] ECG 12-LEAD STAT 11/19/2024 5:54 PM [employer] TROPONIN T HIGH-SENSITIVITY SERIES (BASELINE, 2HR, 4HR, 6HR) STAT 11/19/2024 5:51 PM [employer] EGFR STAT 11/19/2024 5:51 PM [employer] DIFFERENTIAL AUTO STAT 11/19/2024 5:51 PM [employer] B ABO / RH CONFIRMATION TESTING STAT 11/19/2024 5:51 PM [employer] CBC WITH AUTO DIFFERENTIAL STAT 11/19 5:51 PM [employer] COMPREHENSIVE METABOLIC PANEL STAT 5:51 PM [employer] documented in this encounter Results * (ABNORMAL) Hemoglobin and hematocrit (11/22/2024 12:17 PM [employer]) [facility] Hgb 8.7(L) 11.9 - 15.5 g/dL Hct 24.7(L) 35.6 - 45.5 % G[facility]SON [facility]IR[facility] ([place]) Blood 11/22/2024 12:1 7 PM [employer] 11/22/2024 12:20 PM [employer] us Namita Montero MD LAB BLOOD ORDERABLES Final Resu lt GILSON PEREIRA ([place]) 1 [facility] [place] [address] * POCT glucose (11/22/2024 11:36 AM [employer]) Glucose, POC 128 70 - 199 mg/dL Blood 11/22/2024 11:3 6 AM [employer] 11/22/2024 11:36 AM [employer] Lele Barriga II, MD LAB POCT ORDERABLES - DEVICE Final Result GILSON [facility]IRA ([place]) 1 [facility] [place] [address] * POCT glucose (11/22/2024 7:20 AM [employer]) Glucose, POC 105 70 - 199 mg/dL Blood 11/22/2024 7:20 AM [employer] 11/22/2024 7:20 AM [employer] Lele Barriga II, MD LAB POCT ORDERABLES - DEVICE Final Result Performing Organization Address City/[facility] de Phone Number GILSON PEREIRA ([place]) 1 [facility] [place] [address] * (ABNORMAL) eGFR (11/22/2024 5:49 AM [employer]) [facility] eGFR 50(L) >=60 mL/min/1. 73 m2 Comment: [...] last reviewed 2021. Blood 11/22/2024 5:49 AM [employer] 11/22/2024 6:04 AM [employer] us Namita Montero MD LAB BLOOD ORDERABLES Final Resu lt [facility] ([place]) 1 [facility] [place] [address] * Differential, auto (11/22/2024 5:49 AM [employer]) Neutrophil abs 3.9 1.5 - 6.5 K/cumm [...] revised on 2018. Basophil pct 0.3 % GILSON PEREIRA ([place]) Comment: Interpretive Data Percent cell count reference ranges are not reported, since discordance with absolute values may lead to misinterpretation of CBC data. Current Interpretive Data was last revised on 2018. Blood 11/22/2024 5:49 AM [employer] 11/22/2024 6:03 AM [employer] us Nicolas Salvador MD LAB BLOOD ORDERABLES Final Result Performing Organization Address City/[facility]/ZIP Co de Phone Number GILSON PEREIRA ([place]) 1 [facility] [place] [employer] [place] [address] * (ABNORMAL) Hemoglobin and hematocrit (11/22/2024 5:49 AM [employer]) Hgb 8.5(L) 11.9 - 15.5 g/dL Hct 25.3(L) 35.6 - 45.5 % GILSON PEREIRA ([place]) Blood 11/22/2024 5:49 AM [employer] 11/22/2024 6:03 AM [employer] us Namita Montero MD LAB BLOOD ORDERABLES Final Resu lt Performing Organization Address [facility] Co de Phone Number GILSON PEREIRA ([place]) 1 [facility] [place] [address] * Phosphorus (11/22/2024 5:49 AM [employer]) Phosphorus, pl 3.0 2.3 - 4.5 mg/dL Blood 11/22/2024 5:49 AM [employer] 11/22/2024 6:04 AM [employer] us Namita Montero MD LAB BLOOD ORDERABLES Final Resu lt Performing Organization Address City/[facility]/ZIP Co de Phone Number GILSON PEREIRA ([place]) 1 [facility] Department [place] [address] * Magnesium (11/22/2024 5:49 AM [employer]) Magnesium 2.0 1.4 - 2.5 mg/dL Blood 11/22/2024 5:49 AM [employer] 11/22/2024 6:04 AM [employer] Namita Montero MD LAB BLOOD ORDERABLES Final Resu lt GILSON PEREIRA ([place]) 1 [facility] [place] [address] * (ABNORMAL) Comprehensive metabolic panel (11/22/2024 5:49 AM [employer]) Sodium 141 135 - 145 mmol/L Potassium, [...] [facility] ([place]) Blood 11/22/2024 5:49 AM [employer] 11/22/2024 6:04 AM [employer] us Namita Montero MD LAB BLOOD ORDERABLES Final Resu lt [facility] ([place]) 1 [facility] [place] [address] * (ABNORMAL) CBC with auto differential (11/22/2024 5:49 AM [employer]) WBC 6.2 3.8 - 9.9 K/cumm Hgb [...] 13.4 11.1 - 14.9 % [facility] ([place]) RDW SD 47.8 35.7 - 48.1 fL [facility] ([place]) NRBC abs 0.00 0.00 - 0.01 K/cumm [facility] ([place]) Blood 11/22/2024 5:49 AM [employer] 11/22/2024 6:03 AM [employer] Nicolas Salvador MD LAB BLOOD ORDERABLES Final Result Performing Organization Address [facility] Co de Phone Number GILSON PEREIRA ([place]) 1 [facility] [place] [address] * (ABNORMAL) Hemoglobin and hematocrit (11/22/2024 12:10 AM [employer]) Hgb 8.4(L) 11.9 - 15.5 g/dL Hct 24.4(L) 35.6 - 45.5 % GILSON PEREIRA ([place]) Blood 11/22/2024 12:1 0 AM [employer] 11/22/2024 12:38 AM [employer] us Namita Montero MD LAB BLOOD ORDERABLES Final Resu lt Performing Organization Address [facility] Co de Phone Number GILSON PEREIRA ([place]) 1 [facility] [place] [address] * POCT glucose (11/21/2024 8:25 PM [employer]) Glucose, POC 102 70 - 199 mg/dL Blood 11/21/2024 8:25 PM [employer] 11/21/2024 8:25 PM [employer] Namita Montero MD LAB POCT ORDERABLES - DEVICE Fi nal Result Performing Organization Address [facility] Co de Phone Number GILSON PEREIRA ([place]) 1 [facility] [place] [address] * (ABNORMAL) Hemoglobin and hematocrit (11/21/2024 6:36 PM [employer]) Hgb 8.2(L) 11.9 - 15.5 g/dL Hct 24.7(L) 35.6 - 45.5 % GILSON PEREIRA ([place]) Blood 11/21/2024 6:36 PM [employer] 11/21/2024 7:05 PM [employer] us Namita Montero MD LAB BLOOD ORDERABLES Final Resu lt GILSON PEREIRA ([place]) 1 [facility] [place] [address] * POCT glucose (11/21/2024 4:31 PM [employer]) Glucose, POC 120 70 - 199 mg/dL Blood 11/21/2024 4:31 PM [employer] 11/21/2024 4:31 PM [employer] Namita Montero MD LAB POCT ORDERABLES - DEVICE Fi nal Result Performing Organization Address [facility] Co de Phone Number GILSON PEREIRA ([place]) 1 [place] [address] * EGD (11/21/2024 1:52 PM [employer]) Anatomical Region Laterality Modality Other Narrative Procedure Note Fco Vivar MD - 11/21/2024 1:52 PM CST [facility] Patient Name: Lori Burns Procedure Date: 11/21/2024 1:52 PM Date of : 1940 Admit Type: Inpatient Age: 83 Gender: Female Attending MD: Fco Vivar M.D. Room: [facility] ENDOSCOPY ROOM 2 Note Status: Finalized Patient [...] procedure were verified by the physician, the bone plant supervisor and the commercial maintenance technician in the endoscopy suite. Mental Status [...] passed under direct vision. The Endoscope [id number] was introduced through the mouth, and advanced [...] 1:52 PM Procedure Code(s): --- Professional --- 09431, 59, Esophagogastroduodenoscopy, flexible, transoral; withcontrol of bleeding, any method --- Technical --- 56954, 59, Esophagogastroduodenoscopy, flexible, transoral; withcontrol of bleeding, any method Diagnosis Code(s): --- Professional --- D62, Acute posthemorrhagic anemia K92.1, Melena (includes Hematochezia) --- Technical --- D62, Acute posthemorrhagic anemia K92.1, Melena (includes Hematochezia) CPT copyright 2020 [employer]. All rights reserved. The codes documented in this report are preliminary and upon alteration hand reviewmay be revised to meet current compliance requirements. Recognized by the [employer] for promoting quality in endoscopy Fco Vivar MD ENDOSCOPY PROCEDURES Final Resul t * (ABNORMAL) Hemoglobin and hematocrit (11/21/2024 11:59 AM [employer]) Hgb 8.9(L) 11.9 - 15.5 g/dL Hct 26.7(L) 35.6 - 45.5 % GILSON PEREIRA ([place]) Blood 11/21/2024 11:5 9 AM [employer] 11/21/2024 12:31 PM [employer] Namita Montero MD LAB BLOOD ORDERABLES Final Resu lt GILSON PEREIRA ([place]) 1 [facility] [employer] [address] * POCT glucose (11/21/2024 11:20 AM [employer]) Glucose, POC 123 70 - 199 mg/dL Blood 11/21/2024 11:2 0 AM [employer] 11/21/2024 11:20 AM [employer] Namita Montero MD LAB POCT ORDERABLES - DEVICE Fi nal Result GILSON PEREIRA ([place]) 1 [facility] [employer] [place] [address] * POCT glucose (11/21/2024 7:49 AM [employer]) Glucose, POC 121 70 - 199 mg/dL Blood 11/21/2024 7:49 AM [employer] 11/21/2024 7:49 AM [employer] Namita Montero MD LAB POCT ORDERABLES - DEVICE Fi nal Result Performing Organization Address City/[facility]/ZIP Co de Phone Number GILSON PEREIRA ([place]) 1 [facility] [place] [address] * (ABNORMAL) eGFR (11/21/2024 5:40 AM [employer]) Pathologist [facility] eGFR 40(L) >=60 mL/min/1. 73 m2 Comment: [...] last reviewed 2021. Blood 11/21/2024 5:40 AM [employer] 11/21/2024 5:58 AM [employer] Namita Montero MD LAB BLOOD ORDERABLES Final Resu lt GILSON PEREIRA ([place]) 1 [facility] [place] [address] * (ABNORMAL) Differential, auto (11/21/2024 5:40 AM [employer]) Neutrophil abs 3.7 1.5 - 6.5 K/cumm Imm gran abs 0.0 0.0 - 0.1 K/cumm [facility] ([place]) Lymphocyte abs 1.4 0.8 - 3.3 K/cumm [...] revised on 2018. Blood 11/21/2024 5:40 AM [employer] 11/21/2024 5:58 AM [employer] us Nicolas Salvador MD LAB BLOOD ORDERABLES Final Result GILSON PEREIRA ([place]) 1 [facility] [place] [address] * Magnesium (11/21/2024 5:40 AM [employer]) Magnesium 2.1 1.4 - 2.5 mg/dL Blood 11/21/2024 5:40 AM [employer] 11/21/2024 5:58 AM [employer] Namita Montero MD LAB BLOOD ORDERABLES Final Resu lt [facility] ([place]) 1 [facility] [place] [address] * (ABNORMAL) Comprehensive metabolic panel (11/21/2024 5:40 AM [employer] WORK[employer]) Pathologist [facility] Sodium 141 135 - 145 mmol/L Potassium, [...] [facility] ([place]) Blood 11/21/2024 5:40 AM [employer] WORKER 11/21/2024 5:58 AM [employer] WORK[employer] us Namita Montero MD LAB BLOOD ORDERABLES Final Resu lt [facility] ([place]) 1 [facility] [place] [address] * (ABNORMAL) CBC with auto differential (11/21/2024 5:40 AM [employer]) WBC 6.5 3.8 - 9.9 K/cumm Hgb [...] [facility] ([place]) Blood 11/21/2024 5:40 AM [employer] WORK[employer] 11/21/2024 5:58 AM [employer] WORK[employer] Nicolas Salvador MD LAB BLOOD ORDERABLES Final Result GILSON PEREIRA ([place]) 1 [facility] [place] [address] * Phosphorus (11/21/2024 5:40 AM [employer] WORK[employer]) Phosphorus, pl 3.7 2.3 - 4.5 mg/dL Blood 11/21/2024 5:40 AM [employer] 11/21/2024 5:58 AM [employer] WORKER Namita Montero MD LAB BLOOD ORDERABLES Final Resu lt Performing Organization Address [facility] Co de Phone Number GILSON PEREIRA ([place]) 1 [facility] [place] [address] * POCT glucose (11/21/2024 2:10 AM [employer]) Glucose, POC 109 70 - 199 mg/dL Blood 11/21/2024 2:10 AM [employer] WORKER 11/21/2024 2:10 AM [employer] WORK[employer] Namita Montero MD LAB POCT ORDERABLES - DEVICE Fi nal Result Performing Organization Address [facility] Co de Phone Number GILSON PEREIRA ([place]) 1 [facility] [place] [address] * (ABNORMAL) Hemoglobin and hematocrit (11/21/2024 12:07 AM [employer]) Hgb 8.0(L) 11.9 - 15.5 g/dL Hct 23.5(L) 35.6 - 45.5 % [facility] ([place]) Blood 11/21/2024 12:0 7 AM [employer] WORK[employer] 11/21/2024 12:19 AM [employer] WORK[employer] Namita Montero MD LAB BLOOD ORDERABLES Final Resu lt GILSON PEREIRA ([place]) 1 [facility] [place] [address] * POCT glucose (11/20/2024 8:30 PM [employer] WORK[employer]) Glucose, POC 139 70 - 199 mg/dL Blood 11/20/2024 8:30 PM [employer] WORKER 11/20/2024 8:30 PM [employer] WORKER Namita Montero MD LAB POCT ORDERABLES - DEVICE Fi nal Result Performing Organization Address [facility] Co de Phone Number GILSON PEREIRA ([place]) 1 [facility] [place] [address] * (ABNORMAL) Hemoglobin and hematocrit (11/20/2024 5:33 PM [employer]) Hgb 8.3(L) 11.9 - 15.5 g/dL Hct 24.2(L) 35.6 - 45.5 % GONZALEZLORA PEREIRA ([place]) Blood 11/20/2024 5:33 PM [employer] WORK[employer] 11/20/2024 6:45 PM [employer] WORKER Namita Montero MD LAB BLOOD ORDERABLES Final Resu lt Performing Organization Address City/[facility]/ZIP Co de Phone Number GILSON PEREIRA ([place]) 1 [facility] [place] [employer] [place] [address] * POCT glucose (11/20/2024 4:32 PM [employer]) Glucose, POC 126 70 - 199 mg/dL Blood 11/20/2024 4:32 PM [employer] WORKER 11/20/2024 4:32 PM [employer] WORK[employer] Namita Montero MD LAB POCT ORDERABLES - DEVICE Fi nal Result Performing Organization Address City/[facility]/ZIP Co de Phone Number GILSON PEREIRA ([place]) 1 [facility] [place] [address] * (ABNORMAL) Hemoglobin and hematocrit (11/20/2024 12:05 PM [employer] WORK[employer]) [facility] Hgb 8.2(L) 11.9 - 15.5 g/dL Hct 23.7(L) 35.6 - 45.5 % [facility] ([place]) Blood 11/20/2024 12:0 5 PM [employer] WORK[employer] 11/20/2024 12:23 PM [employer] WORKER Namita Montero MD LAB BLOOD ORDERABLES Final Resu lt [facility] 1 [facility] [place] [address] * POCT glucose (11/20/2024 11:32 AM [employer]) [facility] Glucose, POC 167 70 - 199 mg/dL Blood 11/20/2024 11:3 2 AM [employer] WORK[employer] 11/20/2024 11:32 AM [employer] Namita Montero MD LAB POCT ORDERABLES - DEVICE Fi nal Result Performing Organization Address City/[facility]/ZIP Co de Phone Number [facility] 1 [facility] [place] [address] * POCT glucose (11/20/2024 7:37 AM [employer] WORK[employer]) [facility] Glucose, POC 143 70 - 199 mg/dL Blood 11/20/2024 7:37 AM [employer] WORK[employer] 11/20/2024 7:37 AM [employer] WORKER Namita Montero MD LAB POCT ORDERABLES - DEVICE Fi nal Result Performing Organization Address City/[facility]/ZIP Co de Phone Number [facility] 1 [facility] [place] [address] * (ABNORMAL) Manual Differential (11/20/2024 5:20 AM [employer]) Differential Auto Neutrophil abs 4.6 1.5 - [...] RBC Indicies [facility] ([place]) Anisocytosis Slight(A) GILSON PEREIRA ([place]) Microcytes 3-7/HPF(A) [facility]SON [facility] ([place]) Platelet estimate Adequate CE RNROSIBEL PEREIRA ([place]) Blood 11/20/2024 5:20 AM [employer] 11/20/2024 5:21 AM [employer] WORK[employer] Nicolas Salvador MD LAB BLOOD ORDERABLES Final Result Performing Organization Address City/[facility]/ZIP Co de Phone Number GILSON PEREIRA ([place]) 1 [facility] [employer] [place] [address] * (ABNORMAL) eGFR (11/20/2024 5:20 AM [employer]) eGFR 42(L) >=60 mL/min/1. 73 m2 Comment: [...] last reviewed 2021. Blood 11/20/2024 5:20 AM [employer] WORK[employer] 11/20/2024 5:21 AM [employer] WORK[employer] us Nicolas Salvador MD LAB BLOOD ORDERABLES Final Result GILSON PEREIRA ([place]) 1 [facility] [place] [address] * (ABNORMAL) Differential, auto (11/20/2024 5:20 AM [employer]) Neutrophil abs 4.6 1.5 - 6.5 K/cumm [...] revised on 2018. Blood 11/20/2024 5:20 AM [employer] WORKER 11/20/2024 5:21 AM [employer] WORK[employer] us Nicolas Salvador MD LAB BLOOD ORDERABLES Final Result [facility] ([place]) 1 [facility] [place] [address] * (ABNORMAL) Comprehensive metabolic panel (11/20/2024 5:20 AM [employer] WORK[employer]) Sodium 136 135 - 145 mmol/L Potassium, [...] Hemolyzed S pecimen Blood 11/20/2024 5:20 AM [employer] WORK[employer] 11/20/2024 5:21 AM [employer] Nicolas Salvador MD LAB BLOOD ORDERABLES Final Result Performing Organization Address City/[facility]/ZIP Co de Phone Number [facility] ([place]) 1 [facility] [place] [address] * (ABNORMAL) CBC with auto differential (11/20/2024 5:20 AM [employer] WORK[employer]) WBC 7.6 3.8 - 9.9 K/cumm Hgb [...] [facility] ([place]) Blood 11/20/2024 5:20 AM [employer] WORKER 11/20/2024 5:21 AM [employer] WORK[employer] Nicolas Salvador MD LAB BLOOD ORDERABLES Final Result Performing Organization Address City/[facility]/ZIP Co de Phone Number [facility] ([place]) 1 [facility] [place] [address] * Transfuse RBC (11/20/2024 3:12 AM [employer] WORK[employer]) Blood Nicolas Salvador MD BLOOD TRANSFUSION ORDERABLE S Final Result Performing Organization Address [facility] Co de Phone Number GILSON PEREIRA ([place]) 1 [place] [address] * Transfuse RBC: 1 Units (11/20/2024 3:12 AM [employer]) Blood Nicolas Salvador MD BLOOD TRANSFUSION ORDERABLE S Final Result * Troponin T high-sensitivity 6-hour (11/20/2024 12:26 AM [employer]) Trop T hs See Comment <=14 Comment: sample short cannot perform test Interpretive Data For further hscTnT resources including the diagnostic algorithm and an aid in interpretation, copy and paste this link: [email or web address].testcatalog.org/show/[email or web address] Current Interpretive Data last revised 2020. Trop T hs interp See Comment Shonna PEREIRA ([place]) Comment:sample short cannot perform test Blood 11/20/2024 12:2 6 AM [employer] WORK[employer] 11/20/2024 12:30 AM [employer] WORKER Nicolas Salvador MD LAB BLOOD ORDERABLES Final Result GILSON PEREIRA ([place]) 1 [facility] [place] [address] * CT Chest PE (CTA) Abdomen Pelvis W Contrast (11/19/2024 10:33 PM [employer]) Anatomical Region Laterality Modality Body N/A Computed Tomogra phy 11/19/2024 11:0 0 PM [employer] WORK[employer] Narrative 11/19/2024 11:21 PM [employer] WORK[employer] EXAM DESCRIPTION: CT CHEST PE (CTA) ABDOMEN [...] signed by Adriano Maradiaga M.D. KT: EVELIN Finch: 11/19/2024 11:21 PM Report ID: [id number] Reading Location: [id number] Procedure Note Adriano Maradiaga MD - 11/19/2024 [...] Adriano Maradiaga M.D. KT: KT Report ID: [id number] Reading Location: [place] [address] Nicolas Salvador MD IMG CT PROCEDURES Final Res ult * Prepare RBC: 1 Units (11/19/2024 10:18 PM [employer]) Units requested 1 Units requested Ready [facility] ([place]) Unit Number [id number] Product code [id number] [facility] ([place]) Blood Expiration Date [facility] ([place]) Product Blood Type (for scanning) 6200 [facility] ([place]) Product Blood Type APOS [facility] ([place]) Dispense Status DISPENSED [facility] ([place]) Blood 11/19/2024 10:1 8 PM [employer] 11/19/2024 10:18 PM [employer] Nicolas Salvador MD BLOOD BANK PRODUCT ORDERABL ES Final Result [facility] ([place]) 1 [facility] [place] [address] * Crossmatch (11/19/2024 9:17 PM [employer]) Crossmatch Compatible [facility] ([facility]) Unit number for crossmatch [id number] [facility] ([place]) Blood 11/19/2024 9:17 PM [employer] WORKER 11/19/2024 9:24 PM [employer] Nicolas Salvador MD LAB BLOOD BANK TEST ORDERAB LES Final Result Performing Organization Address City/[facility]/ZIP Co de Phone Number GILSON PEREIRA ([place]) 1 [facility] [place] [address] * Antibody screen (11/19/2024 9:17 PM [employer]) Donna, indirect, Gel Interpretation Negative ABSC Blood 11/19/2024 9:17 PM [employer] 11/19/2024 9:24 PM [employer] WORK[employer] Narrative [facility] ([place]) - 11/19/2024 10:09 PM PRECISION OPTICAL GOODS WORKER Has the patient had Daratumumab or Isatuximab in the past 6 months?->Unknown Nicolas Salvador MD LAB BLOOD BANK TEST ORDERAB LES Final Result Performing Organization Address [facility] Co de Phone Number [facility] ([place]) 1 [facility] [place] [address] * ABO/Rh (11/19/2024 9:17 PM PRECISION [employer] GOODS WORKER) Pathologist [facility] ABO/Rh A Positive Blood 11/19/2024 9:17 PM PRECISION [employer] GOODS WORKER 11/19/2024 9:24 PM PRECISION [employer] GOODS WORKER Narrative [facility] ([place]) - 11/19/2024 9:53 PM PRECISION OPT[employer] GOODS WORKER Has the patient had Daratumumab or Isatuximab in the past 6 months?->Unknown Nicolas Salvador MD LAB BLOOD BANK TEST ORDERAB LES Final Result Performing Organization Address [facility] Co de Phone Number [facility] ([place]) 1 [facility] [place] [address] * Thyroid Function [place] (11/19/2024 9:17 PM PRECISION [employer] WORKER) TSH 2.37 0.30 - 4.20 mcIUnit/mL Blood 11/19/2024 9:17 PM PRECISION [employer] WORKER 11/19/2024 9:24 PM PRECISION [employer] GOODS WORKER Nicolas Salvador MD LAB BLOOD ORDERABLES Final Result [facility] ([place]) 1 [facility] [place] [address] * Iron profile w/ IBC (11/19/2024 9:17 PM PRECISION [employer] WORKER) Iron 70 35 - 145 mcg/dL TIBC 275 250 - 400 mcg/dL [facility] ([place]) Transferrin saturation 25 20 - 50 % [facility] ([place]) Blood 11/19/2024 9:17 PM PRECISION [employer] WORKER 11/19/2024 9:24 PM PRECISION [employer] GOODS WORKER Nicolas Salvador MD LAB BLOOD ORDERABLES Final Result Performing Organization Address [facility] Co de Phone Number [facility] ([place]) 1 [facility] [place] [address] * (ABNORMAL) Troponin T high-sensitivity 2-hour (11/19/2024 8:29 PM PRECISION [employer] WORKER) Trop T hs 28(H) <=14 ng/L Comment: Interpretive Data For further hscTnT resources including the diagnostic algorithm and an aid in interpretation, copy and paste this link: https://nrl.testcatalog.org/show/hsTrop Current Interpretive Data last revised 2020. Trop T hs delta 3 ng/L [facility] ([place]) Trop T hs interp Insignificant [facility] ([place]) Blood 11/19/2024 8:29 PM PRECISION [employer] WORKER 11/19/2024 8:36 PM PRECISION [employer] GOODS WORKER Nicolas Salvador MD LAB BLOOD ORDERABLES Final Result Performing Organization Address City/[facility]/ZIP Co de Phone Number [facility] ([place]) 1 [facility] [place] [address] * CT Cervical Spine WO Contrast (11/19/2024 8:25 PM PRECISION [employer] WORKER) Anatomical Region Laterality Modality Spine N/A Computed Tomogra phy 11/19/2024 9:10 PM PRECISION [employer] WORKER Narrative 11/19/2024 9:16 PM PRECISION [employer] WORKER EXAM DESCRIPTION: CT CERVICAL SPINE WO CONTRAST [...] Adriano Maradiaga M.D. KT: EVELIN Report ID: [id number] Reading Location: [id number] Procedure Note Adriano Maradiaga MD - 11/19/2024 [...] Adriano Maradiaga M.D. KT: EVELIN Report ID: [id number] Reading Location: [place] [address] Nav Arnold MD IMG CT PROCEDURES Final Result * CT Head WO Contrast (11/19/2024 8:25 PM PRECISION [employer] WORKER) Anatomical Region Laterality Modality Head and Neck N/A Computed Tomogra phy 11/19/2024 9:16 PM PRECISION [employer] WORKER Narrative 11/19/2024 9:21 PM PRECISION [employer] GOODS WORKER EXAM DESCRIPTION: CT HEAD WO CONTRAST REASON [...] Adriano Maradiaga M.D. KT: EVELIN Report ID: [id number] Reading Location: [id number] Procedure Note Adriano Maradiaga MD - 11/19/2024 [...] Adriano Maradiaga M.D. KT: EVELIN Report ID: [id number] Reading Location: [id number] Nav Arnold MD IMG CT PROCEDURES Final Result * ECG 12 lead (11/19/2024 5:54 PM PRECISION [employer] WORKER) 11/19/2024 5:54 PM PRECISION [employer] WORKER Narrative [facility] - 11/20/2024 7:04 AM PRECISION [employer] WORKER Vent Rate: 110 bpm RR Interval: 542 msec LA Interval: 158 msec QRS Duration: 80 msec QT Interval: 307 msec QTC Interval: 372 msec P-R-T [place]: 82 - 91 - 61 degrees IMPRESSION: SINUS TACHYCARDIA BORDERLINE RIGHT AXIS DEVIATION [QRS AXIS > 90] ABNORMAL RHYTHM ECG NO CHANGE FROM PREVIOUS TRACING NOTED Electronically Signed By: Terrell Campbell MD Nicolas Salvador MD ECG ORDERABLES Final Resul t [facility] * ABO / Rh Confirmation Testing (11/19/2024 5:51 PM PRECISION [employer] WORKER) ABO/Rh Confirmation A Positive [facility] Blood 11/19/2024 5:51 PM PRECISION [employer] WORKER 11/19/2024 9:31 PM PRECISION [employer] WORKER Nicolas Salvador MD LAB BLOOD ORDERABLES Final Result Performing Organization Address City/[facility] Co de Phone Number [facility] ([place]) 1 [facility] [place] [address] [facility] * (ABNORMAL) eGFR (11/19/2024 5:51 PM PRECISION [employer] WORKER) eGFR 40(L) >=60 mL/min/1. 73 m2 Comment: [...] last reviewed 2021. Blood 11/19/2024 5:51 PM PRECISION [employer] WORKER 11/19/2024 6:00 PM PRECISION [employer] WORKER Nicolas Salvador MD LAB BLOOD ORDERABLES Final Result [facility] ([place]) 1 [facility] [place] [address] * (ABNORMAL) Differential, auto (11/19/2024 5:51 PM PRECISION [employer] WORKER) Neutrophil abs 10.0(H) 1.5 - 6.5 K/cumm [...] Neutrophil pct 78.0 % [facility] ([place]) Comment: Interpretive Data Percent cell count reference ranges are not reported, since discordance with absolute values may lead to misinterpretation of CBC data. Current Interpretive Data was last revised on 2018. Imm gran pct 0.6 % [facility] ([place]) Comment: Interpretive Data Percent cell count reference ranges are not reported, since discordance with absolute values may lead to misinterpretation of CBC data. Current Interpretive Data was last revised on 2018. Lymphocyte pct 11.9 % [facility] ([place]) Comment: Interpretive Data Percent cell count reference [...] revised on 2018. Basophil pct 0.2 % [facility] ([place]) Comment: Interpretive Data Percent cell count reference ranges are not reported, since discordance with absolute values may lead to misinterpretation of CBC data. Current Interpretive Data was last revised on 2018. Blood 11/19/2024 5:51 PM PRECISION [employer] WORKER 11/19/2024 6:00 PM PRECISION [employer] WORKER Nicolas Salvador MD LAB BLOOD ORDERABLES Final Result Performing Organization Address [facility] Co de Phone Number [facility] ([place]) 1 [place] [address] * (ABNORMAL) Troponin T high-sensitivity series (baseline, 2hr, 4hr, 6hr) (11/19/2024 5:51 PM PRECISION [employer] WORKER) Trop T hs 25(H) <=14 ng/L Comment: Interpretive Data For further hscTnT resources including the diagnostic algorithm and an aid in interpretation, copy and paste this link: https://nrl.testcatalog.org/show/hsTrop Current Interpretive Data last revised 2020. Blood 11/19/2024 5:51 PM PRECISION [employer] WORKER 11/19/2024 6:00 PM PRECISION [employer] WORKER Nicolas Salvador MD LAB BLOOD ORDERABLES Final Result Performing Organization Address [facility] Co de Phone Number [facility] ([place]) 1 [facility] [place] [address] * (ABNORMAL) CBC with auto differential (11/19/2024 5:51 PM PRECISION [employer] WORKER) WBC 12.8(H) 3.8 - 9.9 K/cumm Hgb 8.1(L) 11.9 - 15.5 g/dL [facility] ([place]) Hct 23.8(L) 35.6 - 45.5 % [facility] ([place]) Plt 247 150 - 400 K/cumm [facility] ([place]) MPV 11.7 9.1 - 12.3 [...] [facility] ([place]) Blood 11/19/2024 5:51 PM PRECISION [employer] WORKER 11/19/2024 6:00 PM PRECISION OPT[employer] GOODS WORKER us Nicolas Salvador MD LAB BLOOD ORDERABLES Final Result [facility] ([place]) 1 [facility] [place] [address] * (ABNORMAL) Comprehensive metabolic panel (11/19/2024 5:51 PM PRECISION [employer] WORKER) Sodium 133(L) 135 - 145 mmol/L Potassium, [...] be affected. Slightly Hemolyzed Specimen Blood 11/19/2024 5:5 1 PM PRECISION [employer] WORKER 11/19/2024 6:00 PM PRECISION OPT[employer] GOODS WORKER us Nicolas Salvador MD LAB BLOOD ORDERABLES Final Result [facility] ([place]) 1 [facility] [place] [address] documented in this encounter Visit Diagnoses Diagnosis Acute upper GI bleed- Primary Unspecified, hemorrhage of gastrointestinal tract Acute upper GI bleed Unspecified, hemorrhage of gastrointestinal tract Weight loss, non-intentional Loss of weight Acute blood loss anemia Acute posthemorrhagic anemia Acute blood loss anemia Acute posthemorrhagic anemia documented in this encounter Admitting Diagnoses Diagnosis Acute upper GI bleed Unspecified, hemorrhage of gastrointestinal tract documented in this encounter Administered Medications Inactive Administered Medications - up to 3 most recent administrations Medication Order MAR Action Action Date Dose Rate Site amLODIPine (NORVASC) tablet 10 mg 10 mg, oral, Daily, First dose on Tue11/20/24 at 1245 Given 11/22/2024 9:05 AM [employer]ISION [employer] WORKER 10 mg ascorbic acid (VITAMIN C) tablet/chewable tablet 500 mg 500 mg, oral, Daily, First dose on Tue11/20/24 at 1400, Indications: Vitamin deficiency preventionIndications:Vitamin deficiency prevention Given 11/22/2024 9:06 AM [employer]ISION [employer] WORKER 500 mg Given 11/20/2024 1:22 PM [employer]ISION [employer] WORKER 500 mg cholecalciferol (VITAMIN D-3) tablet 2,000 Units 2,000 Units, oral, Daily, First dose on Tue11/20/24 at 1400, Each tablet contains 1,000 units (25 mcg) of cholecalciferol. Given 11/22/2024 9:06 AM [employer]ISION [employer] WORKER 2,000 Units Given 11/20/2024 1:21 PM [employer]CISION [employer] WORKER 2,000 Units ezetimibe (ZETIA) tablet 10 mg 10 mg, oral, Daily, First dose on Tue11/20/24 at 1400 Given 11/22/2024 9:05 AM [employer]ISION [employer] WORKER 10 mg Given 11/20/2024 1:21 PM [employer]CISION [employer] WORKER 10 mg ioversoL (OPTIRAY 350) syringe 100 mL 100 mL, intravenous, Once in imaging, contrast, Starting on Tue11/19/24 at 2222, For 1 dose Contrast Given 11/19/2024 10:24 PM [employer]ISION [employer] WORKER 100 mL lisinopriL (PRINIVIL,ZESTRIL) tablet 40 mg 40 mg, oral, Daily, First dose (after last modification) on Tue11/21/24 at 1745 Given 11/22/2024 9:06 AM [employer]CISION [employer] WORKER 40 mg Given 11/21/2024 5:58 PM [employer]CISION [employer] WORKER 40 mg pantoprazole (PROTONIX) 40 mg in sodium chloride 0.9% 10 mL IV Syringe 40 mg, intravenous, at 300 mL/hr, Administer over 2 Minutes, 2 times daily, First dose on Tue11/19/24 at 2056, For IV administration, reconstitute 40 mg vial with 10 mL sodium chloride 0.9% for injection for a final concentration of 4 mg/mL, Indications: GI BleedIndications:GI Bleed Given 11/21/2024 8:37 AM [employer]ISION [employer] WORKER 40 mg 300 mL/hr Given 11/20/2024 8:43 PM [employer]CISION [employer] WORKER 40 mg 300 mL/hr Given 11/20/2024 10:06 AM PRECISION [employer] WORKER 40 mg 300 mL/hr pantoprazole DR (PROTONIX) extended release tablet 40 mg 40 mg, oral, 2 times daily, First dose on Tue11/21/24 at 2100, Do not crush, chew, cut, dissolve, open or otherwise manipulate tablet/capsule., Indications: GI BleedIndications:GI Bleed Given 11/22/2024 9:06 AM [employer]CISION [employer] WORKER 40 mg Given 11/21/2024 8:21 PM PRECISION [employer] WORKER 40 mg PARoxetine (PAXIL) tablet 10 mg 10 mg, oral, Daily, First dose on Tue11/20/24 at 1400 Given 11/20/2024 1:21 PM [employer]CISION [employer] WORKER 10 mg sodium chloride 0.9% bolus 1,000 mL 1,000 mL, intravenous, Once, On Tue11/19/24 at 2056, For 1 dose New Bag 11/19/2024 9:09 PM PRECISION [employer] WORKER 1,000 mL sodium chloride 0.9% infusion 30 mL/hr, intravenous, Continuous, Starting on Tue11/21/24 at 1330, Pre-Procedure (GI) Restarted 11/21/2024 1:58 PM [employer]CISION [employer] WORKER New Bag 11/21/2024 12:58 PM [employer]CISION [employer] WORKER 30 mL/hr 30 mL/hr documented in this encounter Discontinued Medications Medication Sig Discontinue Reason Start Date End Da te rosuvastatin (CRESTOR) 5 mg tablet Take 1 tablet (5 mg total) by mouth daily Alternate therapy 11/20/2024 TiZANidine (ZANAFLEX) 2 mg capsule Take 1 capsule (2 mg total) by mouth 3 (three) times a day Therapy completed 11/20/2024 triamcinolone (KENALOG) 0.1 % ointment Apply topically 2 (two) times a day for 10 days Avoid face and genital area Therapy completed 11/15/2024 11/20/2024 predniSONE (DELTASONE) 10 mg tablet Take 3 tabs days 1 & 2, 2 tabs days 3 & 4, 1 tab days 5-7. Therapy completed 11/11/2024 11/20/2024 amoxicillin (AMOXIL) 500 mg tablet/capsule Take 4 tabs by mouth 1 hour before procedure Stop Taking at Discharge 07/17/2024 11/22/2024 documented as of this encounter Active and Recently Administered Medications Times are shown in PRECISION [employer] WORKER. Scheduled Medication Order 11/20/2024 11/21/2024 11/22/2024 amLODIPine (NORVASC) tablet 10 mg 10 mg, oral, Daily, First dose on Tue11/20/24 at 1245 1213 (Held by Provider - Provider: Namita Montero MD - Reason: Change in Patient Status)1245 (Dose Auto Held) 0900 (Dose Auto Held)1703 (Unheld by Provider - Provider: Namita Montero MD) 0905 (Given - Provider: Stefanie Lainez, RN) ascorbic acid (VITAMIN C) tablet/chewable tablet 500 mg 500 mg, oral, Daily, First dose on Tue11/20/24 at 1400, Indications: Vitamin deficiency prevention 1322 (Given - Provider: Orly Mike, RN) 0834 (Not Given - Provider: Waleska Victoria RN - Reason: NPO)1255 (DEC Hold - Provider: Automatic Transfer Provider - Reason: Patient not available)1516 (DEC Unhold - Provider: Automatic Transfer Provider) 0906 (Given - Provider: Stefanie Lainez, RN) aspirin enteric coated tablet 81 mg 81 mg, oral, Daily, First dose on Tue11/20/24 at 1245, Do not crush, chew, cut, dissolve, open or otherwise manipulate tablet/capsule., On hold since Tue11/20/2024 at 1213 until manually unheld 1213 (Held by Provider - Provider: Namita Montero MD - Reason: Change in Patient Status)1245 (Dose Auto Held) 0900 (Dose Auto Held) 0900 (Dose Auto Held)1757 (Unheld by Provider - Provider: Automatic Discharge Provider) chlorthalidone (HYGROTON) tablet 25 mg 25 mg, oral, Daily, First dose on Tue11/20/24 at 1245, On hold since Tue11/20/2024 at 1213 until manually unheld 1213 (Held by Provider - Provider: Namita Montero MD - Reason: Change in Patient Status)1245 (Dose Auto Held) 0900 (Dose Auto Held) 0900 (Dose Auto Held)1757 (Unheld by Provider - Provider: Automatic Discharge Provider) cholecalciferol (VITAMIN D-3) tablet 2,000 Units 2,000 Units, oral, Daily, First dose on Tue11/20/24 at 1400, Each tablet contains 1,000 units (25 mcg) of cholecalciferol. 1321 (Given - Provider: Orly Mike RN) 0834 (Not Given - Provider: Waleska Victoria, SARAH - Reason: NPO)1255 (DEC Hold - Provider: Automatic Transfer Provider - Reason: Patient not available)1516 (DEC Unhold - Provider: Automatic Transfer Provider) 0906 (Given - Provider: Stefanie Lainez, SARAH) EPINEPHrine syringe (ADRENALIN) 0.1 mg/mL 1 mg 1 mg, other, Once, On Tue11/21/24 at 1515, For 1 dose 1727 (Canceled Entry - Provider: Waleska Victoria RN - Comment: given in digestive health during EGD) ezetimibe (ZETIA) tablet 10 mg 10 mg, oral, Daily, First dose on Tue11/20/24 at 1400 1321 (Given - Provider: Orly Mike RN) 0834 (Not Given - Provider: Waleska Victoria RN - Reason: NPO)1255 (DEC Hold - Provider: Automatic Transfer Provider - Reason: Patient not available)151 (DEC Unhold - Provider: Automatic Transfer Provider) 0905 (Given - Provider: Stefanie Lainez, SARAH) lisinopriL (PRINIVIL,ZESTRIL) tablet 40 mg 40 mg, oral, Daily, First dose (after last modification) on Tue11/21/24 at 1745 1758 (Given - Provider: Waleska Victoria, SARAH) 0906 (Given - Provider: Stefanie Lainez, SARAH) loratadine (CLARITIN) tablet 10 mg 10 mg, oral, Daily, First dose on Tue11/20/24 at 1400 1322 (Not Given - Provider: Orly Mike RN - Reason: Patient/family refused) 0835 (Not Given - Provider: Waleska Victoria RN - Reason: NPO)1255 (DEC Hold - Provider: Automatic Transfer Provider - Reason: Patient not available)1516 (DEC Unhold - Provider: Automatic Transfer Provider) 0908 (Not Given - Provider: Stefanie Lainez RN - Reason: Patient/family refused) pantoprazole (PROTONIX) 40 mg in sodium chloride 0.9% 10 mL IV Syringe (CANCELED) 40 mg, intravenous, at 300 mL/hr, Administer over 2 Minutes, 2 times daily, First dose on Tue11/19/24 at 2056, For IV administration, reconstitute 40 mg vial with 10 mL sodium chloride 0.9% for injection for a final concentration of 4 mg/mL, Indications: GI Bleed 1006 (Given - Provider: Belkis Fountain, RN)2043 (Given - Provider: Lisset Estevez, SARAH) 0837 (Given - Provider: Waleska Victoria, SARAH)1255 (MAR Hold - Provider: Automatic Transfer Provider - Reason: Patient not available)1516 (MAR Unhold - Provider: Automatic Transfer Provider) pantoprazole DR (PROTONIX) extended release tablet 40 mg 40 mg, oral, 2 times daily, First dose on Tue11/21/24 at 2100, Do not crush, chew, cut, dissolve, open or otherwise manipulate tablet/capsule., Indications: GI Bleed 2020 (Given - Provider: Lisset Estevez, SARAH) 0906 (Given - Provider: Stefanie Lainez, SARAH) PARoxetine (PAXIL) tablet 10 mg 10 mg, oral, Daily, First dose on Tue11/20/24 at 1400 1321 (Given - Provider: Orly Mike RN) 0835 (Not Given - Provider: Waleska Victoria RN - Reason: NPO)1255 (MAR Hold - Provider: Automatic Transfer Provider - Reason: Patient not available)1516 (MAR Unhold - Provider: Automatic Transfer Provider) 0908 (Not Given - Provider: Stefanie Lainez, SARAH - Reason: Patient/family refused) Continuous Medication Order 11/20/2024 11/21/2024 11/22/2024 sodium chloride 0.9% infusion 30 mL/hr, intravenous, Continuous, Starting on Tue11/21/24 at 1330, Pre-Procedure (GI) 1258 (New Bag - Provider: Ramya Phillip, SARAH)1357 (Paused - Provider: Jocy Leone CRNA - Comment: Switch to gravity)1358 (Restarted - Provider: Jocy Leone CRNA)1432 (Stopped - Provider: Jocy Leone CRNA) PRN Medication Order 11/20/2024 11/21/2024 11/22/2024 EPINEPHrine 1 mg/mL preservative free injection (CANCELED) As needed, Starting on Tue11/21/24 at 1420, Intra-Op 1420 (Given - Provider: Mak Conroy RN - Comment: Duodenum) documented in this encounter Orders Medications Ordered That Alberto ht Not Have Been Administered Count Last Ordered Date First Ordered Date EPINEPHrine 1 mg/mL preserva tive free injection 1 11/21/2024 EPINEPHrine syringe (ADRENAL IN) 0.1 mg/mL 1 mg 1 11/21/2024 sodium chloride 0.9% flush 0.5-20 mL 2 11/03 aspirin enteric coated tablet 81 mg 1 11/20 chlorthalidone (HYGROTON) tablet 25 mg 1 enoxaparin (LOVENOX) syringe 30 mg 1 2024 HYDROmorphone (PF) (DILAUDID ) injection 0.2 mg 1 11/20/2024 lisinopriL (PRINIVIL,ZESTRIL) tablet 10 mg 1 11/20/2024 loratadine (CLARITIN) tablet 10 mg 1 2024 sodium chloride 0.9% IVPB 0-250 mL 1 2024 Lab Orders Without Results Count Last Ordered D ate First Ordered Date POCT GLUCOSE DEVICE 5 11/22/2024 11/20/19 Diet Count Last Ordered Date First Orde red Date ADULT DISCHARGE DIET 1 11/22/2024 Nursing Count Last Ordered Date First Orde red Date DISCHARGE INSTRUCTIONS 1 11/22/2024 TELEMETRY MONITORING 2 11/21/2024 025 NURSING COMMUNICATION 1 11/19/2024 ORTHOSTATIC BLOOD PRESSURE 1 11/19/2024 Admission Count Last Ordered Date First Orde red Date ADMIT TO INPATIENT 1 11/20/2024 Discharge Count Last Ordered Date First Orde red Date DISCHARGE PATIENT 1 11/22/2024 Case Request Count Last Ordered Date First Orde red Date CASE REQUEST GI 1 11/20/2024 documented in this encounter Care Teams Sand Analyst Relationship Specialty Start Date End Date Kevyn Cortés MD PCP - General 12/31/16 Luis E Ko MD Surgeon Orthopedic Surgery 02/04/22 documented as of this encounter
--- OUTSIDE RECORDS SUMMARY | 2024-11-23 00:41 | XMS_ITS | Continuity of Care Document ---
Author Organization [facility] Address [address] [place] [address] Phone Care Team Providers Care Store Specialist Name Role Phone Prateek Yoder Unavailable Unavailable Allergies, Adverse Reactions, Alerts Substance Reaction Status Criticality No Known Allergies Active No Inform ation Medications Medication Instructions Dosage Effective Dates (start - stop) Status Comments MELOXICAM 7.5MG TABLETS TAKE 1 TABLET BY MOUTH EVERY DAY - Active ezetimibe 10 mg tablet take 1 tablet by oral route every day 10 MG - Active lisinopril 10 mg tablet - Active atenolol 50 mg-chlorthalidone 25 mg tablet - Active amlodipine 5 mg tablet - Active Procedures Procedure Date Fluoroscopic Guidance; Non Spinal Asp/inject major joint or bursa w/o US g uidance Depo Medrol Methylprednisolone 40 MG inj Fluoroscopic Guidance; Non Spinal Asp/inject major joint or bursa w/o US g uidance Depo Medrol Methylprednisolone 40 MG inj X-ray Exam Hip Unilat With Pelvis When P erf 2-3 View Office/outpatient visit,[facility] 2020 Advance Directives Directive Yes / No Effective Date File Name No Information Encounters Encounter Description Practice Location Reason(s) For Visit Diagnoses Date Provider Providers Copied on Encounter [facility], [address], [place], [place], [id number], [place] tel:[phone] [facility] right hip (chief complaint) Unilateral primary osteoarthritis , right hipPain in right hip 1 Beba Loving er. [address] [facility], [place] [address], [place], [place], [address] [place] [address] , . tel: [phone] Referring Provider: Prateek Finch, [address] [facility] [address] [facility], [place], [address]. tel:[phone] [facility], [address], [address] [place] [address], tel:[phone] [facility] No Information 1 Alisson Galvez. [address] [place] [address], [place] [address], [place], [place], [address] [place] [address] , . tel:[phone] [facility], [address] [place] [address], [id number], [phone] [facility] [place] right hip (chief complaint) Unilateral primary osteoarthritis , right hip 1 Alisson Galvez. [address] [place] [address], [place] [address], [place], [address] [place] [address] , . tel: [phone] Referring Provider: Lenny Rondon, [facility] [address] [facility], [place], [address]. tel:[phone] Office/outpat ient visit,[facility], [address] [place] [address], [place], [place], [id number], [phone] [facility] right hip (chief complaint) Pain in right hipUnilateral primary osteoarthritis , right hip 1 Beba Loving er. [address] [facility], [place] [address], [place], [address] [place] [address] , [place]. tel: [phone] Referring Provider: Lenny Rondon, [address] [facility] [address] [facility], [place], [address]. tel:[phone] Family History Family Member Type Diagnosis Age At Onset No Information Payers Payer name Insurance type Covered libertarian ID Delia ramon(s) [facility] [employer] [id number] Social History Type Description Quantity Date Captured Comments Alcohol Use Details Unknown Caffeine Use Details Unknown Tobacco Use Status Current non-smoker Smoking Status Never smoker Sex Female Vital Signs Date / Time: Height Weight BMI Pulse Rate Blood Pressure Temperature Respiratory Rate Body Surface Area Head Circumference Head Circ. Percentile Wt./Abad. Percentile BMI percentile Pulse Ox Inhaled Ox 10:15 AM 62.00 in 53.977 kg (119.00 lbs) 21.7 6 kg/m eter (2) 85 /min 137/67 mm[Hg] 99 % Chief Complaint And Reason For Visit From encounter dated '06/19/2021 10:15'. right hip (chief complaint). Description: Lori is a 80 year-old female who presents to the office for evaluation of right hip pain. Reason For Referral Reason For Referral No Information Plan Of Treatment Date Type Action Status Referral Ordered: Fluoroscopic Guidance; Non Spinal RT hip Appointment date/timeframe: 02/18/2021 ordered Referral Ordered: X-ray Exam Hip Unilat With Pelvis When Perf 2-3 View RT hip ordered History Of Present Illness Encounter Date Complaint History Of Prese nt Illness right hip Lori is a [age] year-old female who presents to the office for evaluation of right hip pain. right hip right hip Lori is a p zak 80-year-old, 5 foot 2 inch tall, 119 pounds, right-hand dominant female who presents for initial evaluation of her chronic, non-acute right hip pain. Patients pain is located in the low gluteal region, with radiation to the groin and down the right leg to the knee. Pain is increased in intensity and characteristics over the last few months, and the patient is now experiencing difficulty with putting on socks and shoes, and inability to continue activities such as vacuuming, house cleaning, and maintaining normal ADLs. Pain is becomes so severe she is having difficulty with ambulation, the right leg has started to give out, and she has developed a significant limp with ambulation. She has point tenderness at the low gluteal region and the lateral thigh. Pain is worsened with bending, lifting, ascending and descending stairs, and ambulation. Denies pain at rest. Denies injury, trauma, or fall within the last year. Pain is rated at a 5 out of 10 with a dull aching nature, with intermittent increases to an 8 out of 10 with a sharp stabbing nature. Pain is minimally well-managed with the use of Aleve, activity modifications, topical creams, Voltaren gel, heat, and physical therapy. Patient indicates that she is traveling to [place] in March and wishes to discuss treatment options prior to that date, as well as treatment options after. Patient is ambulating with the use of a cane at today's office visit. Functional Status Date Functional Assessmen t No Information Instructions Date Instruction Additional Infor mation No Information Assessments Type Assessment Date No Information Patient Care Teams Name Effective Dates (start - stop) Status Members No Information
--- OUTSIDE RECORDS SUMMARY | 2024-11-23 00:41 | XMS_ITS | Encounter Summary ---
Author Organization [facility] Address [address] [place] [address] Care Team Providers Care Journeyman Machinist Name Role Phone Kevyn Cortés MD Primary Care Provider Luis E Ko MD Unavailable [phone] Encounter Details Date Type Department Care Team (Late st Contact Info) Description 11/14/2024 Telephone [facility] Primary Care at [facility] [address] [place] [address] Kevyn Cortés MD [address] [facility] [place] [address] Social History Tobacco Use Types Packs/Day Years Used Date Smoking Tobacco: Never Smokeless Tobacco: Never Alcohol Use Standard Drinks/Week Comments Yes 0 (1 standard drink = 0.6 oz pur e alcohol) AUDIT-C Answer Date Recorded Q1: How often do you have a drink containing alc ohol? 2-3 times a week 02/03/2022 Q2: How many drinks containi ng alcohol do you have on a typical day when you are drinking? 1 or 2 02/03/2022 Q3: How often do you have si x or more drinks on one occasion? Never 02/03/2022 PHQ-2 Answer Date Recorded PHQ-2 Total Score (If total score is 3 or more points, staff should administer the PHQ-9) 0 06/20/2024 Comments No Sex and Gender Information Value Date Recorded Sex Assigned at Not on file Legal Sex Female 5:02 PM GLUING PRESSMAN Gender Identity Female 11/24/2020 9:38 AM GLUING PRESSMAN Sexual Orientation Not on file documented as of this encounter Miscellaneous Notes * Telephone Encounter - Kalyn Flores - 11/14/2024 11:57 AM CST error NG PRESSMAN NG PRESSMAN documented in this encounter Plan of Treatment Not on file documented as of this encounter Visit Diagnoses Not on filedocumented in this encounter Care Teams Journeyman Machinist Relationship Specialty Start Date End Date Kevyn Cortés MD PCP - General 12/31/16 Luis E Ko MD Surgeon Orthopedic Surgery 02/04/22 documented as of this encounter
[2024-11-23 01:47] VITALS: BP 125/55; PULSE 77; RESP 10
[2024-11-23 02:01] VITALS: BP 141/59; PULSE 68; RESP 19
[2024-11-23 02:16] VITALS: BP 122/56; PULSE 73; RESP 15
[2024-11-23 03:01] VITALS: BP 159/68; PULSE 67; RESP 14
[2024-11-23 03:47] VITALS: BP 161/60; PULSE 71; RESP 20; O2SAT 97
== END 2024-11-23 03:48 | disposition home or self-care (01) ==
PROVIDERS: Emergency Provider Emergency Medicine; PCP Internal Medicine
DX: K62.5 Hemorrhage of anus and rectum (principal); R93.3 Abnormal findings on diagnostic imaging of other parts of digestive tract
CPT/HCPCS: 36415; 74177; 80053; 85025; 85610; 85730; 86850; 86900; 86901; 99284; Q9967